=== PATIENT | female | born 1940 | race Caucasian/White ===

== ENCOUNTER 2020-02-19 12:52 | Inpatient (IN) | payer MEDICARE ==
[~2020-02-19] VITALS: Ht 167.6 cm; Wt 272.0 kg
[2020-02-19] VITALS (10 sets, daily range): BP systolic 118–147; BP diastolic 54–87
--- NOTE | 2020-02-19 13:29 | PHYS DOC ---
Past Medical History Past Medical History: A-Fib, Bronchitis, COPD, Other Additional Past Medical Histor: TESTED POSITIVE FOR COVID NOVEMBER 2019 JUST RELEASED FROM [facility]UG[facility] TO REHAB Past Surgical History: , Knee Replacement Additional Past Surgical Histo: RIGHT PARTIAL KNEE REPLACEMENT, GALL BLADDER Smoking Status: Former Smoker Alcohol Use: None General Adult EDM: Chief Complaint: SHORTNESS OF BREATH HPI: HPI: 79-year-old female past medical history significant for COPD on 2L NC, atrial fibrillation on Lovenox, and HTN presents to the ED brought in by EMS with concern for worsening shortness of breath that started last night, patient reports this does not feel like her typical COPD and is concerned she has pneumonia. Associated increased mucus production and left leg swelling, no h emoptysis, no fevers. Reports she was admitted to ICU in November for COVID, was confused and "doesn't remember much" and had multiple embolic strokes, residual left-sided weakness, eliquis was changed to lovennox. EMS reports patient was found 89% on 8 L nasal cannula. Patient reports she is no longer ambulatory- been giving her her Lovenox shots, denies any falls or trauma. Negative covid test 8 days ago while in rehab (was just dc'ed from rehab to home). Review of systems: Denies associated fever, chills, headache, neck stiffness, nausea, vomiting, diarrhea, rash, abdominal pain, back pain, sore throat, facial droop, speech changes, new focal neurologic deficits, dysuria, hematuria, flank pain, anuria or other concerning symptoms. Review of Systems: Review of Systems: Constitutional: Denies fever or chills. [] Eyes: Denies change in visual acuity. [] HENT: Denies nasal congestion or sore throat. [] Cardiovascular: Denies chest pain GI: Denies abdominal pain, nausea, vomiting, bloody stools or diarrhea. [] : Denies dysuria. [] Musculoskeletal: Denies back pain or joint pain. [] Integument: Denies rash. [] Neurologic: Denies headache, focal weakness or sensory changes. [] Endocrine: Denies polyuria or polydipsia. [] Lymphatic: Denies swollen glands. [] Psychiatric: Denies depression or anxiety. [] Heart Score: Risk Factors: Risk Factors: DM, Current or recent (<one month) smoker, HTN, HLP, family history of CAD, obesity. Risk Scores: Score 0 - 3: 2.5% MACE over next 6 weeks - Discharge Home Score 4 - 6: 20.3% MACE over next 6 weeks - Admit for Clinical Observation Score 7 - 10: 72.7% MACE over next 6 weeks - Early Invasive Strategies Allergies: Allergies: Allergies Coded Allergies Type Severity Reaction Last Updated Verified azithromycin Allergy Intermediate 02/19/20 Yes Physical Exam: PE: Constitutional: Pale appearing, in no acute distress, obese HENT: Normocephalic, atraumatic, bilateral external ears normal, oropharynx dry, Eyes: EOMI, conjunctiva normal, no discharge. [] Neck: Normal range of motion, no tenderness, supple, no stridor. [] Cardiovascular:Heart rate irregular rhythm, no murmur [] Lungs & Thorax: Crackles left upper and left lung base, scant expiratory wheezing, speaking in full sentences-no increased work of breathing, 5 L nasal cannula, 95% room air Abdomen: Bowel sounds normal, soft, no tenderness, no masses, no pulsatile masses, lower abdominal wall bruising (lovennox injections) Skin: Warm, dry, no erythema, no rash. [] Back: No tenderness, no CVA tenderness. [] Extremities: No tenderness, no cyanosis, no clubbing, ROM intact, +left leg edema. [] Neurologic: Alert and oriented X 3, normal motor function, normal sensory function, no focal deficits noted. [] Psychologic: Affect normal, judgement normal, mood normal. [] Current Patient Data: Vital Signs: Vital Signs Date Time Temp Pulse Resp B/P (MAP) Pulse Ox O2 Delivery O2 Flow Rate FiO2 02/19/20 13:05 98.8 123 22 138/73 (94) 93 Nasal Cannula 8.0 98.8 EKG: EKG: Atrial fibrillation at 135 bpm, no axis deviation, QTC 479, no obvious ST elevations or ST depressions, T wave inversions III Radiology/Procedures: Radiology/Procedures: IMAGING REPORT Signed PATIENT: PAMELA CARRION PACCOUNT: [id number] : 1940 LOCATION: ER AGE: 79 SEX: F EXAM STATUS: REG ER ORD. PHYSICIAN: FLORENTIN GOODE DO REASON: soa PROCEDURE: PORTABLE CHEST 1V Single AP view of the chest. Comparison: None. Indication: Shortness of air Findings: The heart is enlarged. There is no pneumothorax or effusion. Coarse bilateral interstitial infiltrates are seen. There is some component of airspace disease in the right lung base. Impression: 1. Coarse interstitial opacities are identified throughout the lungs with some airspace disease in right lung base. Findings suggest pulmonary edema or atypical infection. Electronically signed by: Geornimo Duckworth MD (02/19/2020 3:32 PM) [id number] DICTATED and SIGNED BY: GERONIMO DUCKWORTH MD DATE: 02/19/20 1532 IMAGING REPORT Signed PATIENT: PAMELA CARRION PACCOUNT: [id number] : 1940 LOCATION: ER AGE: 79 SEX: F EXAM STATUS: REG ER ORD. PHYSICIAN: FLORENTIN GOODE DO REASON: leg swelling PROCEDURE: VENOUS LOWER EXTREMITY LEFT Examination: Unilateral venous Doppler. Technique: Ultrasound evaluation of the left lower extremity was performed from the groin to the upper calf with abraham scale, spectral and color doppler evaluation. Indication: Leg swelling Findings: There is normal venous flow and compressibility of left common femoral vein, femoral vein, popliteal vein, and visualized proximal calf veins. Impression: No evidence for deep vein thrombosis of left lower extremity from the level of the calf veins to the groins. Electronically signed by: Popeye Snowden MD (02/19/2020 4:10 PM) [id number] DICTATED and SIGNED BY: POPEYE SNOWDEN MD DATE: 02/19/20 1610 Course & Med Decision Making: Course & Med Decision Making Pertinent Labs and Imaging studies reviewed. (See chart for details) Acute respiratory failure w/copd, requiring more NC oxygen, afib w/rvr on cardizem drip. Patient's daughter reported after patient was discharged from rehab she was supposed be on Cardizem 4 times a day, is only taking it once a day at home. Patient was requesting transfer to , not accepting pts (is on diversion). Left lower extremity ultrasound shows no DVT. Patient on 4 L nasal cannula. Chest x-ray concerning for atypical infectious process versus pulmonary edema (suspect chf given elevated bnp). COVID test pending. Will admit for further medical management. Dragon Disclaimer: Dragon Disclaimer: This electronic medical record was generated, in whole or in part, using a voice recognition dictation system. Departure Departure Impression: Primary Impression: Dyspnea Additional Impressions: Atrial fibrillation with rapid ventricular response Respiratory failure COPD exacerbation Disposition: ADMITTED INPATIENT Admitting Physician: SUMAN (Dr. Arciniega) Condition: GUARDED Referrals: YIFAN PRAJAPATI (PCP) Justicifation of Admission Dx: Justifications for Admission: Justification of Admission Dx: Yes CHF: Cardiac Arrhythmias FLORENTIN GOODE DO Feb 19, 2020 13:29
[2020-02-19] MEDS ORDERED: IV NORMAL SALINE 1000ML BAG 1,000 ML IV ONE (13:30)
[2020-02-19] MEDS ORDERED: IPRATRPIUM/ALBUTEROL 0.5/2.5MG 3 ML NEBU. NEB ONE (13:45)
[2020-02-19] MEDS ORDERED: methylPREDNISolone SOD SUCC PF 125 MG/2 ML VIAL. IV ONE (13:45)
--- NOTE | 2020-02-19 13:51 | EKG ---
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
[2020-02-19] MEDS ORDERED: dilTIAZem IV PUSH 25 MG/5 ML VIAL IVP ONE (14:00)
[2020-02-19 14:09] LABS: BASO # 0.2 x10^3/uL (0.0-0.2); BASO % 2 % (0-3); EOS # 0.3 x10^3/uL (0.0-0.7); EOS % 3 % (0-3); HEMATOCRIT 32.7 % (36.0-47.0); HEMOGLOBIN 10.8 g/dL (12.0-15.5); LYMPH # 2.9 x10^3/uL (1.0-4.8); LYMPH % 28 % (24-48); MEAN CORPUSCULAR HEMOGLOBIN 30 pg (25-35); MEAN CORPUSCULAR HGB CONC 33 g/dL (31-37); MEAN CORPUSCULAR VOLUME 92 fL (79-100); MONO # 0.9 x10^3/uL (0.0-1.1); MONO % 9 % (0-9); NEUT # 6.1 x10^3/uL (1.8-7.7); NEUT % 58 % (31-73); PLATELET COUNT 282 x10^3/uL (140-400); RED BLOOD COUNT 3.57 x10^6/uL (3.50-5.40); RED CELL DISTRIBUTION WIDTH 17.2 % (11.5-14.5); WHITE BLOOD COUNT 10.4 x10^3/uL (4.0-11.0)
[2020-02-19 14:19] LABS: PROTHROMBIN TIME PATIENT 14.4 SEC (11.7-14.0)
[2020-02-19 14:20] LABS: CALCIUM 7.8 mg/dL (8.5-10.1); CREATININE 0.9 mg/dL (0.6-1.0); GFR 60.2; POTASSIUM 3.4 mmol/L (3.5-5.1)
[2020-02-19 14:25] LABS: ALBUMIN 2.3 g/dL (3.4-5.0); ALBUMIN/GLOBULIN RATIO 0.6 (1.0-1.7); TOTAL BILIRUBIN 0.5 mg/dL (0.2-1.0); TOTAL PROTEIN 5.9 g/dL (6.4-8.2)
[2020-02-19] MEDS ORDERED: DILTIAZEM HCL 125 MG in IV NORMAL SALINE 100ML 100 ML IV ONE (15:15)
--- NOTE | 2020-02-19 15:35 | RAD ---
Single AP view of the chest. Comparison: None. Indication: Shortness of air Findings: The heart is enlarged. There is no pneumothorax or effusion. Coarse bilateral interstitial infiltrates are seen. There is some component of airspace disease in the right lung base. Impression: 1. Coarse interstitial opacities are identified throughout the lungs with some airspace disease in right lung base. Findings suggest pulmonary edema or atypical infection. Electronically signed by: Geronimo Duckworth MD (02/19/2020 3:32 PM) [id number]
--- NOTE | 2020-02-19 16:13 | RAD ---
Examination: Unilateral venous Doppler. Technique: Ultrasound evaluation of the left lower extremity was performed from the groin to the upper calf with abraham scale, spectral and color doppler evaluation. Indication: Leg swelling Findings: There is normal venous flow and compressibility of left common femoral vein, femoral vein, popliteal vein, and visualized proximal calf veins. Impression: No evidence for deep vein thrombosis of left lower extremity from the level of the calf veins to the groins. Electronically signed by: Popeye Sy MD (02/19/2020 4:10 PM) [id number]
[2020-02-19 17:02] LABS: BASE EXCESS ABG -3 mmol/L (-3-3); HCO3 ABG 21 mmol/L (21-28); PCO2 ABG 35 mmHg (35-46); PO2 ABG 80 mmHg (65-108); SAT O2 ABG 95 % (92-99)
[2020-02-19 17:04] LABS: FIO2 ABG 4L NC
--- NOTE | 2020-02-19 17:26 | PDOC1 ---
History and Physical Date of Service: DOS: DATE: 02/19/20 TIME: 17:23 Chief Complaint: Problems: (1) Respiratory failure (2) COPD exacerbation (3) Dyspnea (4) Atrial fibrillation with rapid ventricular response Chief Complain: Shortness of breath History of Present Illness: HPI: This is an elderly female who was at for COVID-19 within the past month She was just released in November I think she went to a rehab unit afterwards While being treated for her Covid-19 she apparently had a stroke as well She now developed severe shortness of breath The chest x-ray done here in the ER reviewed by myself and the ER physician is pretty impressive it shows vascular congestion and possible COVID-19? She apparently was retested for COVID recently and is negative but I am co ncerned she could have a recurrence She also has some left leg swelling I discussed the case with ER physician were going to meet the patient in consult pulmonary medicine infectious disease and cardiology Past Medical/Surgical History: PMH/PSH: Past Medical History: A-Fib, Bronchitis, COPD, Other Additional Past Medical Histor: TESTED POSITIVE FOR COVID NOVEMBER 2019 JUST RELEASED FROM [facility]ANU[facility] TO REHAB Past Surgical History: , Knee Replacement Additional Past Surgical Histo: RIGHT PARTIAL KNEE REPLACEMENT, GALL BLADDER Smoking Status: Former Smoker Alcohol Use: None General Adult Allergies: Allergies: Coded Allergies: azithromycin (Verified Allergy, Intermediate, 02/19/20) Family History: Family History: Hypertension Social History: Social History: She is not currently drink smoke or take drugs (I think she quit smoking) Current Medications: Current Medications Current Medications Sodium Chloride 1,000 ml @ 1,000 mls/hr 1X ONCE IV Last administered on 02/19/20at 14:05; Start 02/19/20 at 13:30; Stop 02/19/20 at 14:29; Status DC Diltiazem HCl (Cardizem Iv Push) 20 mg 1X ONCE IVP Last administered on 02/19/20at 14:04; Start 02/19/20 at 14:00; Stop 02/19/20 at 14:01; Status DC Methylprednisolone Sodium Succinate (SOLU-Medrol 125MG VIAL) 125 mg 1X ONCE IV Last administered on 02/19/20at 14:04; Start 02/19/20 at 13:45; Stop 02/19/20 at 13:46; Status DC Albuterol/ Ipratropium (Duoneb) 3 ml 1X ONCE NEB Last administered on 02/19/20at 14:05; Start 02/19/20 at 13:45; Stop 02/19/20 at 13:46; Status DC Diltiazem HCl 125 mg/Sodium Chloride 125 ml @ 5 mls/hr 1X ONCE IV Last administered on 02/19/20at 15:15; Start 02/19/20 at 15:15; Stop 02/20/20 at 16:14 Levofloxacin/ Dextrose 150 ml @ 100 mls/hr 1X ONCE IV Last administered on 02/19/20at 17:09; Start 02/19/20 at 16:45; Stop 02/19/20 at 18:14 ROS: Review of Systems Review of System REVIEW OF SYSTEMS: GENERAL: Denies weakness SKIN: No bruising, hair changes or rashes. EYES: No blurred, double or loss of vision. NOSE AND THROAT: No history of nosebleeds, hoarseness or sore throat. HEART: No history of palpitations, chest pain or shortness of breath on exertion. LUNGS: Complains of shortness of breath GASTROINTESTINAL: Denies changes in appetite, nausea, vomiting, diarrhea or constipation. GENITOURINARY: No history of frequency, urgency, hesitancy or nocturia. NEUROLOGIC: Denies history of numbness, tingling, or tremor. PSYCHIATRIC: No history of panic, anxiety or depression. ENDOCRINE: No history of heat or cold intolerance, polyuria or polydipsia. EXTREMITIES: Denies joint pain, pain on walking or stiffness. Physical Exam: Vital Signs: Vital Signs Date Time Temp Pulse Resp B/P (MAP) Pulse Ox O2 Delivery O2 Flow Rate FiO2 02/19/20 15:30 122 20 142/90 (107) 97 Nasal Cannula 4.0 02/19/20 13:05 98.8 98.8 Physcial Exam: GEN: No apparent distress. Alert and oriented HEENT: Normal cephalic, atraumatic, external auditory canals are patent EYES: Extraocular muscles are intact, pupil are equally round and reactive to light and accommodation MUSCULOSKELETAL: Well developed , well nourished, good range of motion ENDOCRINE: No thyromegaly was palpated LYMPHATICS: No cervical chain or axillary nodes were noted HEMATOPOIETIC: No bruising NECK: Supple, no JVD, no thyromegaly was noted LUNGS: Bibasilar crackles HEART: RRR, S!, S2 present. Peripheral pulses intact, no obvious murmurs noted ABDOMEN: Soft, nontender. Positive bowel sounds, no organomegaly, normal bowel sounds EXTREMITIES: Left leg swollen NEUROLOGIC: Normal speech and tone. A&O x 3, moves all extremities, no obvious focal deficits PSYCHIATRIC: Normal affect, normal mood. Stable SKIN: No ulcerations or rashes, good skin turgor, no jaundice VASCULAR: Good capillary refill, neurovascular bundle appears to be intact Labs: Labs: Laboratory Tests Test 02/19/20 13:56 02/19/20 16:10 White Blood Count 10.4 x10^3/uL (4.0-11.0) Red Blood Count 3.57 x10^6/uL (3.50-5.40) Hemoglobin 10.8 g/dL (12.0-15.5) Hematocrit 32.7 % (36.0-47.0) Mean Corpuscular Volume 92 fL (79-100) Mean Corpuscular Hemoglobin 30 pg (25-35) Mean Corpuscular Hemoglobin Concent 33 g/dL (31-37) Red Cell Distribution Width 17.2 % (11.5-14.5) Platelet Count 282 x10^3/uL (140-400) Neutrophils (%) (Auto) 58 % (31-73) Lymphocytes (%) (Auto) 28 % (24-48) Monocytes (%) (Auto) 9 % (0-9) Eosinophils (%) (Auto) 3 % (0-3) Basophils (%) (Auto) 2 % (0-3) Neutrophils # (Auto) 6.1 x10^3/uL (1.8-7.7) Lymphocytes # (Auto) 2.9 x10^3/uL (1.0-4.8) Monocytes # (Auto) 0.9 x10^3/uL (0.0-1.1) Eosinophils # (Auto) 0.3 x10^3/uL (0.0-0.7) Basophils # (Auto) 0.2 x10^3/uL (0.0-0.2) Prothrombin Time 14.4 SEC (11.7-14.0) Prothromb Time International Ratio 1.2 (0.8-1.1) Activated Partial Thromboplast Time 41 SEC (24-38) Sodium Level 143 mmol/L (136-145) Potassium Level 3.4 mmol/L (3.5-5.1) Chloride Level 108 mmol/L (98-107) Carbon Dioxide Level 27 mmol/L (21-32) Anion Gap 8 (6-14) Blood Urea Nitrogen 14 mg/dL (7-20) Creatinine 0.9 mg/dL (0.6-1.0) Estimated GFR (Cockcroft-Gault) 60.2 BUN/Creatinine Ratio 16 (6-20) Glucose Level 120 mg/dL (70-99) Calcium Level 7.8 mg/dL (8.5-10.1) Total Bilirubin 0.5 mg/dL (0.2-1.0) Aspartate Amino Transf (AST/SGOT) 14 U/L (15-37) Alanine Aminotransferase (ALT/SGPT) 10 U/L (14-59) Alkaline Phosphatase 54 U/L (46-116) Troponin I Quantitative < 0.017 ng/mL (0.000-0.055) RB-Plo-N-Type Natriuretic Peptide 86694 pg/mL (0-449) Total Protein 5.9 g/dL (6.4-8.2) Albumin 2.3 g/dL (3.4-5.0) Albumin/Globulin Ratio 0.6 (1.0-1.7) O2 Saturation 95 % (92-99) Arterial Blood pH 7.40 (7.35-7.45) Arterial Blood pCO2 at Patient Temp 35 mmHg (35-46) Arterial Blood pO2 at Patient Temp 80 mmHg (65-108) Arterial Blood HCO3 21 mmol/L (21-28) Arterial Blood Base Excess -3 mmol/L (-3-3) FiO2 4l nc Laboratory Tests Test 02/19/20 13:56 02/19/20 16:10 White Blood Count 10.4 x10^3/uL (4.0-11.0) Red Blood Count 3.57 x10^6/uL (3.50-5.40) Hemoglobin 10.8 g/dL (12.0-15.5) Hematocrit 32.7 % (36.0-47.0) Mean Corpuscular Volume 92 fL (79-100) Mean Corpuscular Hemoglobin 30 pg (25-35) Mean Corpuscular Hemoglobin Concent 33 g/dL (31-37) Red Cell Distribution Width 17.2 % (11.5-14.5) Platelet Count 282 x10^3/uL (140-400) Neutrophils (%) (Auto) 58 % (31-73) Lymphocytes (%) (Auto) 28 % (24-48) Monocytes (%) (Auto) 9 % (0-9) Eosinophils (%) (Auto) 3 % (0-3) Basophils (%) (Auto) 2 % (0-3) Neutrophils # (Auto) 6.1 x10^3/uL (1.8-7.7) Lymphocytes # (Auto) 2.9 x10^3/uL (1.0-4.8) Monocytes # (Auto) 0.9 x10^3/uL (0.0-1.1) Eosinophils # (Auto) 0.3 x10^3/uL (0.0-0.7) Basophils # (Auto) 0.2 x10^3/uL (0.0-0.2) Prothrombin Time 14.4 SEC (11.7-14.0) Prothromb Time International Ratio 1.2 (0.8-1.1) Activated Partial Thromboplast Time 41 SEC (24-38) Sodium Level 143 mmol/L (136-145) Potassium Level 3.4 mmol/L (3.5-5.1) Chloride Level 108 mmol/L (98-107) Carbon Dioxide Level 27 mmol/L (21-32) Anion Gap 8 (6-14) Blood Urea Nitrogen 14 mg/dL (7-20) Creatinine 0.9 mg/dL (0.6-1.0) Estimated GFR (Cockcroft-Gault) 60.2 BUN/Creatinine Ratio 16 (6-20) Glucose Level 120 mg/dL (70-99) Calcium Level 7.8 mg/dL (8.5-10.1) Total Bilirubin 0.5 mg/dL (0.2-1.0) Aspartate Amino Transf (AST/SGOT) 14 U/L (15-37) Alanine Aminotransferase (ALT/SGPT) 10 U/L (14-59) Alkaline Phosphatase 54 U/L (46-116) Troponin I Quantitative < 0.017 ng/mL (0.000-0.055) YB-Cpv-W-Type Natriuretic Peptide 06967 pg/mL (0-449) Total Protein 5.9 g/dL (6.4-8.2) Albumin 2.3 g/dL (3.4-5.0) Albumin/Globulin Ratio 0.6 (1.0-1.7) O2 Saturation 95 % (92-99) Arterial Blood pH 7.40 (7.35-7.45) Arterial Blood pCO2 at Patient Temp 35 mmHg (35-46) Arterial Blood pO2 at Patient Temp 80 mmHg (65-108) Arterial Blood HCO3 21 mmol/L (21-28) Arterial Blood Base Excess -3 mmol/L (-3-3) FiO2 4l nc Assessment/Plan Assessment/Plan Severe respiratory failure CHF acute on chronic systolic and diastolic Recent COVID-19 suspect possible recurrence? Plan Consult infectious disease Consult pulmonary Consult cardiology Respiratory isolation Consider IV antibiotics Consider IV Lasix Home meds DVT prophylaxis Full code Long-term prognosis guarded JIM LUGO III DO Feb 19, 2020 17:26
[2020-02-19] MEDS ORDERED: METOPROLOL TARTRATE 5 MG/5 ML VIAL. IVP ONE (18:15)
--- NOTE | 2020-02-19 19:30 | NUR ---
A 79YO FEMALE ADMITTED FOR AFIB RVR , RESP FAILURE AND ACUTE HYPOXIA. PT WITH 3-4 PERSON TRANSFER TO BED. 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 ASSESSMENT AND HISTORY COMPLETE SEE CHART. PT ON CARDIZEM GTT PER ORDER. PT ON 4L NC WITH O2SATS WNL. WILL REPOSITION PT Q2HRS AND PRN NEEDED. CALL LIGHT IN REACH, WILL CONT TO MONITOR PT STATUS AND SAFETY. PMRN
[2020-02-19] MEDS ORDERED: CELE200C PO (21:25)
[2020-02-19] MEDS ORDERED: PANT20TA2 PO (21:25)
[2020-02-19] MEDS ORDERED: METO25TA4 PO (21:51)
[2020-02-19] MEDS ORDERED: DRON400T PO (21:51)
[2020-02-19] MEDS ORDERED: METOPROLOL TART IMMED RELEASE 25 MG TABLET. PO ONE (22:45)
[2020-02-19] MEDS ORDERED: PANTOPRAZOLE 40 MG TABLET.DR. PO ONE (22:45)
[2020-02-19] MEDS ORDERED: DRONEDARONE HCL 400 MG TABLET PO ONE (22:45)
[2020-02-20] VITALS (13 sets, daily range): BP systolic 102–142; BP diastolic 54–85
[2020-02-20] MEDS ORDERED: DILTIAZEM HCL 125 MG in IV NORMAL SALINE 100ML 100 ML IV PRN (00:30)
[2020-02-20] MEDS ORDERED: DULO60CA6 PO (04:36)
[2020-02-20] MEDS ORDERED: LORA-434 PO (04:36)
[2020-02-20] MEDS ORDERED: APIX5TAB PO (04:36)
[2020-02-20] MEDS ORDERED: LOSA1TAB25 PO (04:36)
[2020-02-20] MEDS ORDERED: MULT-245 PO (04:36)
[2020-02-20] MEDS ORDERED: OXYB5TAB10 PO (04:36)
[2020-02-20] MEDS: PANTOPRAZOLE 40 MG TABLET.DR. PO SCH ×2 (08:00→16:20)
[2020-02-20] MEDS: CELECOXIB 100 MG CAPSULE. PO SCH (08:01)
[2020-02-20] MEDS: METOPROLOL TART IMMED RELEASE 25 MG TABLET. PO SCH ×4 (08:02→21:00)
[2020-02-20] MEDS: MULTIVITAMIN with MINERAL TABLET. PO SCH (08:02)
[2020-02-20] MEDS: OXYBUTYNIN CHLORIDE 5 MG TABLET PO SCH (08:02)
[2020-02-20] MEDS ORDERED: MAGNESIUM SULFATE 2GM 50 ML IV PRN (08:30)
[2020-02-20] MEDS ORDERED: POTASSIUM CHLORIDE 20 MEQ TABLET.ER. PO PRN (08:30)
[2020-02-20] MEDS ORDERED: POTASSIUM CHLORIDE 10MEQ 100 ML IV PRN ×2 (08:30)
[2020-02-20] MEDS ORDERED: POTASSIUM BICARB 20 MEQ EFFERVESCENT TABLET. PO PRN (08:30)
[2020-02-20] MEDS ORDERED: POTASSIUM & SODIUM PHOSPHATES PACKET. PO PRN (09:00)
[2020-02-20] MEDS ORDERED: NON FORMULARY ITEM (Losartan/Hydrochlorothiazide (Losartan-Hctz 100-12.5 Mg Tab) 1 EACH) PO SCH (09:00)
[2020-02-20] MEDS ORDERED: LOSARTAN POTASSIUM 50 MG TABLET. PO SCH (09:00)
[2020-02-20] MEDS ORDERED: DRONEDARONE HCL 400 MG TABLET PO SCH (09:00)
[2020-02-20] MEDS ORDERED: hydroCHLOROthiazide 12.5 MG CAPSULE PO SCH (09:00)
[2020-02-20] MEDS ORDERED: FUROSEMIDE 40 MG/4 ML VIAL. IVP ONE (10:00)
--- NOTE | 2020-02-20 11:10 | CONS ---
DATE OF CONSULTATION: PULMONARY CONSULTATION ATTENDING PHYSICIAN: Dr. Arciniega. REASON FOR CONSULTATION: Hypoxia, respiratory failure. HISTORY OF PRESENT ILLNESS: The patient is an 79-year-old female who has probably 15-20 years of tobacco use, quit 40 years ago. She was treated for COVID pneumonia, hypoxic respiratory failure in the month of November and stayed at for about 5 weeks. The patient states that she also had a stroke at that time. She then went to rehab facility. From rehab facility, she went home. She was brought into the hospital with increasing shortness of breath. She has mild cough. No fever, no chills. She had lower extremity edema. She was noted to be in atrial fibrillation with RVR. The patient's chest x-ray showed diffuse bilateral interstitial infiltrates. She does not have any fever. The patient was treated with Cardizem. She has not received Lasix yet. Her proBNP was markedly elevated at 10,000. No deep vein thrombosis or pulmonary embolism. She is normally not on oxygen. PAST MEDICAL HISTORY: History of COVID pneumonia, acute lung injury in the month of November. She has recovered from it. She did have a stroke during that time as well. She was tested 5 times negative after that. Possible mild COPD. History of atrial fibrillation. PAST SURGICAL HISTORY: , knee replacement and cholecystectomy. SOCIAL HISTORY: Quit tobacco 40 years ago, before that smoked for 15-20 years. MEDICATIONS: Reviewed as listed in the MRAD. REVIEW OF SYSTEMS: Twelve-point system obtained. Pertinent positives discussed in my history of present illness, otherwise noncontributory. All systems that were negative were reviewed as well. PHYSICAL EXAMINATION: VITAL SIGNS: Reviewed. Pulse ox 94% on 4 liters. She is afebrile. Visual exam done due to COVID-19 suspicion. She does not appear to be in any obvious respiratory distress. She does have 1+ pitting edema bilaterally. No skin rash. LABORATORY AND DIAGNOSTIC DATA: Labs are reviewed. BUN 14, creatinine 0.9. ProBNP is 10,000. INR 1.2. White cell count 10.4. IMPRESSION: 1. Acute hypoxic respiratory failure, likely secondary to acute congestive heart failure. Triggered by atrial fibrillation with rapid ventricular response. 2. The patient with COVID pneumonia and acute lung injury treated for about 5-6 weeks in the month of November at and then developed stroke while at the rehab facility and has been tested negative 5 times since then. Now comes in with acute hypoxic respiratory failure, which is likely caused by congestive heart failure. Low clinical suspicion for recurrent COVID infection. 3. Minimal tobacco history. 4. History of atrial fibrillation. 5. Abnormal chest x-ray with diffuse bilateral interstitial infiltrates consistent with congestive heart failure. 6. No evidence of deep venous thrombosis in the lower extremity. RECOMMENDATIONS: 1. Continue present oxygen. 2. Start diuresis, she has not received Lasix yet. 3. Follow chest x-ray after adequate diuresis. 4. Follow Cardiology recommendations regarding atrial fibrillation. 5. Anticoagulation per Cardiology for AFib. 6. Cardizem for AFib. 7. Discussed with RN and we will follow along with you. BRITNI GARCIA MD DR: JANAY/angel JOB#: [id number] / [id number]
[2020-02-20] MEDS ORDERED: ANTI-COAG MONITOR BY PHARMACY. MC PRN (11:30)
--- NOTE | 2020-02-20 12:55 | PDOC2 ---
NBA OLSEN REFORESTATION WORKER 02/20/20 1255: CARDIAC CONSULT DATE OF CONSULT Date of Consult DATE: 02/20/20 TIME: 12:04 REASON FOR CONSULT Reason for Consult: CHF REFERRING PHYSICIAN Referring Physician: [facility] SOURCE Source: Chart review, Patient HISTORY OF PRESENT ILLNESS HISTORY OF PRESENT ILLNESS This is a pleasant 79 yo female admitted for complains of shortness of breath. Reports that she has been having some SOA in the last week and yesterday it became significantly pronounced. No chest pain. She is debilitated due to weakness and past CVA. She is WC bound. She has been to [facility] few months ago and actually had an embolic stroke. She was on eliquis before and was placed on routine home lovenox per neurology and was told that she has to be on this for the rest of her life. She has been paying about $400 a month for it. She came in with AFIB RVR and currently on cardizem drip. It is unclear what cardizem PO dosing she has been taking but has been off some of her usual meds especially multaq unclear when her last dose was but clearly unable to afford it as well with $400 a month cost. She lives with her and has been helping her with transfers. She has been urinating less and has been noticing her legs become more edematous lately. Denies any nausea vomiting or diarrhea. She has been hav ing nonproductive cough and orthopnea. She has AFIB RVR but does not feel her heart racing. Unclear when was the last time she had an ischemic workup. 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) GI: Diverticulosis, Peptic Ulcer disease, Other (dysphagia; rectocele) Heme/Onc: Cancer (breast), Other (LUE superficial rhombus r/t to PIV in 12/18) Hepatobiliary: Cholelithiasis Psych: Anxiety, Depression Musculoskeletal: Osteoarthritis Rheumatologic: No pertinent hx Infectious disease: Herpes simplex1 ENT: Other (glaucoma) Renal/: UTI, Urinary Incontinence, Other (prior SEKOU) Endocrine: Diabetes (2) Dermatology: Other (prior genital herpes) PAST SURGICAL HISTORY Past Surgical History: Appendectomy, Cholecystectomy, Hysterectomy FAMILY HISTORY Family History: Hypertension SOCIAL HISTORY Smoke: Quit ALCOHOL: none Drugs: None Lives: with Family CURRENT MEDICATIONS CURRENT MEDICATIONS Current Medications Medications (Trade) Dose Ordered Sig/Geronimo Route PRN Reason Start Time Stop Time Status Last Admin Dose Admin Sodium Chloride 1,000 ml @ 1,000 mls/hr 1X ONCE IV 02/19/20 13:30 02/19/20 14:29 DC 02/19/20 14:05 Diltiazem HCl (Cardizem Iv Push) 20 mg 1X ONCE IVP 02/19/20 14:00 02/19/20 14:01 DC 02/19/20 14:04 Methylprednisolone Sodium Succinate (SOLU-Medrol 125MG VIAL) 125 mg 1X ONCE IV 02/19/20 13:45 02/19/20 13:46 DC 02/19/20 14:04 Albuterol/ Ipratropium (Duoneb) 3 ml 1X ONCE NEB 02/19/20 13:45 02/19/20 13:46 DC 02/19/20 14:05 Diltiazem HCl 125 mg/Sodium Chloride 125 ml @ 5 mls/hr 1X ONCE IV 02/19/20 15:15 02/20/20 16:14 02/19/20 15:15 Levofloxacin/ Dextrose 150 ml @ 100 mls/hr 1X ONCE IV 02/19/20 16:45 02/19/20 18:14 DC 02/19/20 17:09 Metoprolol Tartrate (Lopressor Vial) 5 mg 1X ONCE IVP 02/19/20 18:15 02/19/20 18:16 DC 02/19/20 18:30 Dronedarone (Multaq) 400 mg 1X ONCE PO 02/19/20 22:45 02/19/20 22:46 DC 02/19/20 23:18 Pantoprazole Sodium (Protonix) 40 mg 1X ONCE PO 02/19/20 22:45 02/19/20 22:46 DC 02/19/20 23:17 Metoprolol Tartrate (Lopressor) 25 mg 1X ONCE PO 02/19/20 22:45 02/19/20 22:46 DC 02/19/20 23:17 Enoxaparin Sodium (Lovenox 100mg Syringe) 90 mg Q12HR SQ 02/19/20 22:45 02/20/20 08:00 Diltiazem HCl 125 mg/Sodium Chloride 125 ml @ 10 mls/hr CONT PRN IV SEE I/O RECORD 02/20/20 00:30 02/20/20 01:05 Dronedarone (Multaq) 400 mg BID PO 02/20/20 09:00 02/20/20 08:02 Lorazepam (Ativan) 1 mg DAILY PO 02/20/20 09:00 02/20/20 08:01 Metoprolol Tartrate (Lopressor) 25 mg BID PO 02/20/20 09:00 02/20/20 08:02 Oxybutynin Chloride (Ditropan) 15 mg DAILY PO 02/20/20 09:00 02/20/20 08:02 Celecoxib (CeleBREX) 200 mg DAILY PO 02/20/20 09:00 02/20/20 08:01 Multivitamins (Thera M Plus) 1 tab DAILY PO 02/20/20 09:00 02/20/20 08:02 Pantoprazole Sodium (Protonix) 40 mg BIDAC PO 02/20/20 07:30 02/20/20 08:00 Losartan Potassium (Cozaar) 100 mg DAILY PO 02/20/20 09:00 02/20/20 08:01 Hydrochlorothiazide (Microzide) 12.5 mg DAILY PO 02/20/20 09:00 02/20/20 08:01 Furosemide (Lasix) 40 mg 1X ONCE IVP 02/20/20 10:00 02/20/20 10:01 DC 02/20/20 10:30 ALLERGIES ALLERGIES: Coded Allergies: azithromycin (Verified Allergy, Intermediate, 02/19/20) ROS Review of System 14 point ROS evaluated with pertinent positives noted per HPI PHYSICAL EXAM General: Alert, Oriented X3, Cooperative, No acute distress HEENT: Atraumatic, Mucous membr. moist/pink Lungs: Other (diminished) Heart: Other (AFIB; distant heart sounds) Abdomen: Soft, No tenderness, Other (obese) Extremities: No cyanosis, Other (2+ bilateral LE pitting edema) Skin: No breakdown Neuro: Normal speech, Sensation intact Psych/Mental Status: Mental status NL, Mood NL MUSCULOSKELETAL: Osteoarthritic changes both hands VITALS/I&O VITALS/I&O: Vital Signs Date Time Temp Pulse Resp B/P (MAP) Pulse Ox O2 Delivery O2 Flow Rate FiO2 02/20/20 08:02 83 118/83 02/20/20 08:00 Nasal Cannula 4.0 02/20/20 07:00 96.9 22 94 96.9 I & O 02/19/20 02/19/20 02/20/20 15:00 23:00 07:00 Intake Total 700 ml 725 ml Balance 700 ml 725 ml LABS Lab: Laboratory Tests Test 02/19/20 13:56 02/19/20 16:10 02/19/20 22:31 02/20/20 08:07 White Blood Count 10.4 x10^3/uL (4.0-11.0) Red Blood Count 3.57 x10^6/uL (3.50-5.40) Hemoglobin 10.8 g/dL (12.0-15.5) L Hematocrit 32.7 % (36.0-47.0) L Mean Corpuscular Volume 92 fL (79-100) Mean Corpuscular Hemoglobin 30 pg (25-35) Mean Corpuscular Hemoglobin Concent 33 g/dL (31-37) Red Cell Distribution Width 17.2 % (11.5-14.5) H Platelet Count 282 x10^3/uL (140-400) Neutrophils (%) (Auto) 58 % (31-73) Lymphocytes (%) (Auto) 28 % (24-48) Monocytes (%) (Auto) 9 % (0-9) Eosinophils (%) (Auto) 3 % (0-3) Basophils (%) (Auto) 2 % (0-3) Neutrophils # (Auto) 6.1 x10^3/uL (1.8-7.7) Lymphocytes # (Auto) 2.9 x10^3/uL (1.0-4.8) Monocytes # (Auto) 0.9 x10^3/uL (0.0-1.1) Eosinophils # (Auto) 0.3 x10^3/uL (0.0-0.7) Basophils # (Auto) 0.2 x10^3/uL (0.0-0.2) Prothrombin Time 14.4 SEC (11.7-14.0) H Prothrombin Time INR 1.2 (0.8-1.1) H Activated Partial Thromboplast Time 41 SEC (24-38) H Sodium Level 143 mmol/L (136-145) Potassium Level 3.4 mmol/L (3.5-5.1) L Chloride Level 108 mmol/L (98-107) H Carbon Dioxide Level 27 mmol/L (21-32) Anion Gap 8 (6-14) Blood Urea Nitrogen 14 mg/dL (7-20) Creatinine 0.9 mg/dL (0.6-1.0) Estimated GFR (Cockcroft-Gault) 60.2 BUN/Creatinine Ratio 16 (6-20) Glucose Level 120 mg/dL (70-99) H Calcium Level 7.8 mg/dL (8.5-10.1) L Total Bilirubin 0.5 mg/dL (0.2-1.0) Aspartate Amino Transferase (AST) 14 U/L (15-37) L Alanine Aminotransferase (ALT) 10 U/L (14-59) L Alkaline Phosphatase 54 U/L (46-116) Troponin I Quantitative < 0.017 ng/mL (0.000-0.055) IQ-Wbf-Q-Type Natriuretic Peptide 19506 pg/mL (0-449) H Total Protein 5.9 g/dL (6.4-8.2) L Albumin 2.3 g/dL (3.4-5.0) L Albumin/Globulin Ratio 0.6 (1.0-1.7) L O2 Saturation 95 % (92-99) Arterial Blood pH 7.40 (7.35-7.45) Arterial Blood pCO2 at Patient Temp 35 mmHg (35-46) Arterial Blood pO2 at Patient Temp 80 mmHg (65-108) Arterial Blood HCO3 21 mmol/L (21-28) Arterial Blood Base Excess -3 mmol/L (-3-3) FiO2 4l nc Glucose (Fingerstick) 171 mg/dL (70-99) H 159 mg/dL (70-99) H Laboratory Tests 02/19/20 13:56 Laboratory Tests 02/19/20 13:56 IMAGES IMAGES CTA chest 12/15/2019 1. No pulmonary embolism. 2. Confluent bilateral COVID-19 pneumonia. 3. Mediastinal and hilar adenopathy, likely reactive. 4. 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 A small amount of intermediate density left perinephric fluid may represent small amount of blood products. Of note, visualized portion of the AML is not significantly changed appearance. ECHOCARDIOGRAM ECHOCARDIOGRAM 12/17/2019 [facility] Technically difficult study due to atrial fibrillation with rapid ventricular response during image acquisition. LVEF=55-60%. Global left ventricular systolic function is normal. No definite regional wall abnormalities identified on the echo contrast images. Mildly dilated right ventricle with normal function. Normal LA volume index. The aortic and pulmonic valves were not well visualized on this study. Mild tricuspid valve regurgitation. No valvular stenosis. No pericardial effusion. Estimated pulmonary artery systolic pressure is 32 mmHg. STRESS TEST STRESS TEST FINDINGS: 06/09/2018 [facility] Pharmacological Stress Electrocardiogram: The patient's resting heart rate was 78 bpm and the resting blood pressure was 122/70. The patients peak stress heart rate was 95 bpm and the peak stress blood pressure was 112/58. The patient experienced flushing. The resting ECG shows Normal sinus rhythm with frequent APCs. Following Regadenoson infusion there are no new diagnostic ECG changes. Conclusion: Pharmacologic stress ECG is negative for ischemia. Atwzskztf-oc-Evqbsdciwb Count Ratio: 0.28 (normal = or < 0.52). Scintigraphic Findings: Raw images reveal the left ventricular cavity is normal in size. There is normal pulmonary tracer uptake. There is breast attenuation present. No transient ischemic dilation is present. Tomographic images were reconstructed in three orthogonal views. There is a very subtle degree of decreased radiotracer uptake in the LV apex in a fixed pattern. There is normal homogenous uptake of thallium in all other myocardial segments. There are no perfusion defects. All myocardial segments appear viable. Polar coordinate map identifies more significant LV apical perfusion abnormalities than what is evident by qualitative review of the tomographic reconstructions. TID Ratio: 1.12 (normal <1.36). Summed Stress Score: 4 , Summed Rest Score: 1 Regional Wall Thickening and Motion Post Stress: There is normal left ventricular wall motion and thickening of all myocardial segments. Left Ventricular Ejection Fraction = 57 %. Left Ventricular End Diastolic Volume: 59 mL SUMMARY/OPINION: This study is probably normal with no evidence of significant myocardial ischemia. There is a small sized, mild intensity, predominantly fixed apical inferior perfusion defect. The defect is less prominent in the post- stress supine images. This suggests the reduced tracer uptake is due to soft tissue attenuation, which correlates with raw image breast artifact.There is no corresponding regional wall motion abnormality. Left ventricular systolic function is normal. There are no high risk prognostic indicators present. The ECG portion of the study is negative for ischemia. This study is compared to prior thallium myocardial perfusion study performed 08/09/2014 with D-SPECT camera. No significant changes have occurred. Apical inferior perfusion defect was seen on prior study and was also less prominent on post-stress supine imaging. ASSESSMENT/PLAN ASSESSMENT/PLAN 1. Acute on chronic diastolic CHF: likely precipitated by RVR 2. AFIB RVR: paroxysmal by hx 3. GLADIS: CPAP intolerant; uses O2 at home. may need to get retested for consideration of other type of CPAP delivery 4. HTN: controlled 5. HLP: past statin intolerance 6. DM2: per pcp 7. Obesity with debility r/t CVA 8. Recently recovered from COVID-19 PNA: noted in 11/2019 with 2 negatives known early December 9. Hx of recent embolic stroke with left side hemiparesis: was placed on lovenox 10. Chronic LE lymphedema Recommendations 1. Await covid PCR. If negative then will obtain limited TTE and will note LV function 2. DC cardizem drip. Stop HCTZ and decrease losartan to make room for metoprolol. Lasix therapy 3. Start coumadin will bridge with lovenox and amiodarone for stroke prophylaxis and rhythm maintenance 4. Consider for outpt ischemic workup. She follow with Dr. Pa at [facility] cardiology 5. She has been given multaq in the past and unclear when she actually stopped it but it has been a while due to $400 a month payment. Also she was recently started on lovenox for stroke prophylaxis and unclear why she was not transitioned to coumadin as this cost her another $400 a month. She has been taking this but not the multaqdue to cost. It is unclear as well if she has been taking IR cardizem at home. There was no documented hemorrhagic transformation in her prior stroke but rather notable for embolic finding. Hence she will start on amiodarone and coumadin 6. BMP and Mg, TSH FINA CHAPIN MD 02/20/20 2444: CARDIAC CONSULT ASSESSMENT/PLAN ASSESSMENT/PLAN Patient seen and examined. Agree with RAMP FLIGHT ATTENDANT's assessment and plan. Continue diuretics for ac on chr diast HF Recent 2D echo showed nornal LVF Atrial fib rate better controlled Agree with amiodarone for anti arrhythmic therapy, coumadin for stroke prophylaxis. If she remains in AF, consider outpatient cardioversion with primary emission technician. Agree with 2D echo if Covid test negative/ Consider outpatient ischemic workup. Thank you for your consultation NBA OLSEN APRN Feb 20, 2020 12:55 FINA CHAPIN MD Feb 20, 2020 19:04
[2020-02-20] MEDS: AMIODARONE HCL 200 MG TABLET. PO SCH ×2 (14:01→21:28)
--- NOTE | 2020-02-20 14:18 | NUR ---
CAROL following. Spoke with RN and reviewed chart. Pt was at home with spouse and [facility] ([phone]) prior to this admission. Pt on 4l 02. Pt is 224 lbs. Pt COVID negative. CAROL spoke with Carito from [facility] and pt was at [facility] and then [facility] ([phone]) prior to discharging home. Carito stated that pt had no DME on discharge from [facility] and that was working to get a gamaliel lift and low-loss air-mattress in the home. CAROL attempted to call into pt's room and also LVM for spouse. PT/OT has been ordered. CAROL LVM for [facility] to see if pt has exhausted skilled days. CAROL following. Addendum: 02/20/20 at 1723 by GLADIS MEDINA Spoke with spouse and he would like pt home with [facility] at discharge. Pt's spouse working to get a hospital bed and gamaliel lift in the home. [employer] Choice of Vendor form completed. Pt transferred to .
[2020-02-20 14:30] LABS: BILIRUBIN,URINE NEGATIVE (NEG); CLARITY,URINE CLEAR; COLOR,URINE YELLOW; NITRITE,URINE NEGATIVE (NEG); PH,URINE 5.5 (<5.0-8.0); PROTEIN,URINE NEGATIVE (NEG-TRACE); UROBILINOGEN,URINE 0.2 mg/dL (0.2 mg/dL)
[2020-02-20 14:39] LABS: BACTERIA,URINE FEW /HPF (0-FEW); RBC,URINE RARE /HPF (0-2); SQUAMOUS EPITHELIAL CELL,UR MOD /LPF
--- NOTE | 2020-02-20 14:47 | PDOC ---
[employer] PROGRESS NOTE Date of Service DOS: DATE: 02/20/20 TIME: 14:37 Chief Complaint Chief Complaint Acute respiratory failure due to likely acute CHF acute on chronic diastolic CHF AFIB RVR GLADIS HTN Dyslipidemia Diabetes Obesity class II Recent COVID infection pneumonia in November Recent embolic stroke with residual left-sided hemiparesis Chronic LE lymphedema Appreciate cardiology and pulmonology recommendations Will obtain TTE when COVID is negative Continue losartan at a low dose. Continue metoprolol. DC Cardizem and HCTZ. Continue with IV Lasix diuresis Continue IV antibiotics appreciate ID recommendations Follow-up blood cultures Lovenox and warfarin for DVT prophylaxis Protonix GI prophylaxis ADA diet Full code Discussed with RN and SW Disposition inpatient Surrogate decision maker is self History of Present Illness History of Present Illness 79-year-old female with past medical history of CHF, GLADIS, CVA, COVID pneumonia who presents to the ED with complaints of shortness of breath. She was recently treated for COVID and she developed a stroke during her treatment at . She eventually went to rehab afterwards. 02/20/2020 No acute events overnight. Patient is currently being evaluated by pulmonology and cardiology. She will receive IV diuresis today. Patient's chart, labs, images were reviewed and discussed with RN Vitals/I&O Vitals/I&O: Vital Signs Date Time Temp Pulse Resp B/P (MAP) Pulse Ox O2 Delivery O2 Flow Rate FiO2 02/20/20 14:01 95 117/62 02/20/20 11:00 97.3 22 Nasal Cannula 4.0 97.3 02/20/20 07:00 94 I & O 02/19/20 02/19/20 02/20/20 15:00 23:00 07:00 Intake Total 700 ml 725 ml Balance 700 ml 725 ml Physical Exam General: Alert, Oriented X3, Cooperative, No acute distress Heart: Other (AFIB; distant heart sounds) Abdomen: Soft, No tenderness, Other (obese) Extremities: No cyanosis, Other (2+ bilateral LE pitting edema) Skin: No breakdown Labs Labs: Laboratory Tests Test 02/19/20 16:10 02/19/20 17:05 02/19/20 22:31 02/20/20 08:07 O2 Saturation 95 % (92-99) Arterial Blood pH 7.40 (7.35-7.45) Arterial Blood pCO2 at Patient Temp 35 mmHg (35-46) Arterial Blood pO2 at Patient Temp 80 mmHg (65-108) Arterial Blood HCO3 21 mmol/L (21-28) Arterial Blood Base Excess -3 mmol/L (-3-3) FiO2 4l nc Coronavirus (PCR) Not detected (Not Detected) Glucose (Fingerstick) 171 mg/dL (70-99) 159 mg/dL (70-99) Test 02/20/20 13:55 Prothrombin Time 15.0 SEC (11.7-14.0) Prothromb Time International Ratio 1.2 (0.8-1.1) Assessment and Plan Assessmemt and Plan Problems Medical Problems: (1) Atrial fibrillation with rapid ventricular response Status: Acute (2) COPD exacerbation Status: Acute (3) Dyspnea Status: Acute (4) Respiratory failure Status: Acute Comment Review of Relevant I have reviewed the following items grace (where applicable) has been applied. Medications: Current Medications Medications (Trade) Dose Ordered Sig/Geronimo Route PRN Reason Start Time Stop Time Status Last Admin Dose Admin Diltiazem HCl 125 mg/Sodium Chloride 125 ml @ 5 mls/hr 1X ONCE IV 02/19/20 15:15 02/20/20 16:14 02/19/20 15:15 Levofloxacin/ Dextrose 150 ml @ 100 mls/hr 1X ONCE IV 02/19/20 16:45 02/19/20 18:14 DC 02/19/20 17:09 Metoprolol Tartrate (Lopressor Vial) 5 mg 1X ONCE IVP 02/19/20 18:15 02/19/20 18:16 DC 02/19/20 18:30 Dronedarone (Multaq) 400 mg 1X ONCE PO 02/19/20 22:45 02/19/20 22:46 DC 02/19/20 23:18 Pantoprazole Sodium (Protonix) 40 mg 1X ONCE PO 02/19/20 22:45 02/19/20 22:46 DC 02/19/20 23:17 Metoprolol Tartrate (Lopressor) 25 mg 1X ONCE PO 02/19/20 22:45 02/19/20 22:46 DC 02/19/20 23:17 Enoxaparin Sodium (Lovenox 100mg Syringe) 90 mg Q12HR SQ 02/19/20 22:45 02/20/20 14:17 DC 02/20/20 08:00 Diltiazem HCl 125 mg/Sodium Chloride 125 ml @ 10 mls/hr CONT PRN IV SEE I/O RECORD 02/20/20 00:30 02/20/20 12:44 DC 02/20/20 01:05 Dronedarone (Multaq) 400 mg BID PO 02/20/20 09:00 02/20/20 12:44 DC 02/20/20 08:02 Lorazepam (Ativan) 1 mg DAILY PO 02/20/20 09:00 02/20/20 08:01 Metoprolol Tartrate (Lopressor) 25 mg BID PO 02/20/20 09:00 02/20/20 08:02 Oxybutynin Chloride (Ditropan) 15 mg DAILY PO 02/20/20 09:00 02/20/20 08:02 Celecoxib (CeleBREX) 200 mg DAILY PO 02/20/20 09:00 02/20/20 08:01 Multivitamins (Thera M Plus) 1 tab DAILY PO 02/20/20 09:00 02/20/20 08:02 Pantoprazole Sodium (Protonix) 40 mg BIDAC PO 02/20/20 07:30 02/20/20 08:00 Losartan Potassium (Cozaar) 100 mg DAILY PO 02/20/20 09:00 02/20/20 12:44 DC 02/20/20 08:01 Hydrochlorothiazide (Microzide) 12.5 mg DAILY PO 02/20/20 09:00 02/20/20 12:45 DC 02/20/20 08:01 Furosemide (Lasix) 40 mg 1X ONCE IVP 02/20/20 10:00 02/20/20 10:01 DC 02/20/20 10:30 Metoprolol Tartrate (Lopressor) 25 mg Q6HRS PO 02/20/20 12:45 02/20/20 14:01 Amiodarone HCl (Cordarone) 400 mg BID PO 02/20/20 13:00 02/20/20 14:01 JODI GALICIA MD Feb 20, 2020 14:47
[2020-02-20 14:56] LABS: CALCIUM 8.6 mg/dL (8.5-10.1); CREATININE 0.9 mg/dL (0.6-1.0); GFR 60.2; POTASSIUM 3.5 mmol/L (3.5-5.1)
[2020-02-20 14:57] LABS: MAGNESIUM 1.8 mg/dL (1.8-2.4)
--- NOTE | 2020-02-20 15:46 | NUR ---
Pharmacy Warfarin Dosing Note S:Pharmacy consulted to assist with anticoagulation therapy started with target INR: 2 -3 O:PAMELA CARRION P is a 79 year old F with Atrial Fibrillation LABS: Last INR: 1.2 Last HGB: 10.8 Last HCT: 32.7 Last PLT: 282 Last dose of given on at Previous Regimen: Vitamin K given: Drug Interaction Changes: Ongoing Drug Interactions: A:INR of 1.2 is below desired range. Target range for this patient is: 2 -3 P: Warfarin dose: 5 mg Today at 1600 Bridge Therapy: Enoxaparin 1 mg/kg q12h Next INR due TOMORROW. Pharmacy anticoagulation service will continue to follow. ANJANA CASILLAS [facility], 02/20/20 0821
[2020-02-20] MEDS: WARFARIN 5 MG TABLET. PO ONE ×2 (16:00→16:20)
[2020-02-20] MEDS: DULoxetine HCL 30 MG CAPSULE.DR PO SCH (21:35)
[2020-02-21] VITALS (15 sets, daily range): BP systolic 109–144; BP diastolic 67–91
[2020-02-21] MEDS: METOPROLOL TART IMMED RELEASE 25 MG TABLET. PO SCH ×3 (00:14→08:33)
--- NOTE | 2020-02-21 02:09 | NUR ---
Daughter who is a nurse at the HF clinic at called and spoke with this RN with concerns of patient not being discharged on warfarin, she is unable to get her INR checked weekly, d/t debilitation. Dtr also states that per her neurologist at she will and needs to take lovenox for the duration d/t failed anticoagulation with eliquis. Dtr is really wanting patient to be transferred to , d/t her vascular technician and neurologist being there, but they are according to daughter, on diversion. This RN explained that it is not always that easy just to transfer a patient to another hospital unless requiring a higher level of care. This being said, daughter is going to follow up with tomorrow, she states that her doctors know and are aware of her situation. This RN explained to daughter that patient has been diuresed, cardiology has seen her, and now Dr. Portillo is aware of home lovenox and he is ok with her discharging home on this. Daughter is really wanting to talk to either the hospitalist or vascular technician tomorrow, this RN took daughters number and will pass on to dayshift RN. Side note....daughter also states "it isn't that you guys aren't taking good care of my mom, I just feel better with her seeing her doctors since they know her and what is going on."
[2020-02-21] MEDS: OXYBUTYNIN CHLORIDE 5 MG TABLET PO SCH (08:32)
--- NOTE | 2020-02-21 08:32 | PDOC ---
PROGRESS NOTES Date of Service: DATE: 02/21/20 TIME: 08:32 Chief Complaint Chief Complaint IMPRESSION Acute respiratory failure due to likely acute CHF COVID pneumonia and acute lung injury treated for about 5-6 weeks in the month of November at and then developed stroke while at the rehabfacility and has been tested negative 5 times since then. acute on chronic diastolic CHF AFIB RVR, UNCONTROLLED GLADIS HTN Dyslipidemia Diabetes Obesity class II Recent COVID infection pneumonia in November Recent embolic stroke with residual left-sided hemiparesis Chronic LE lymphedema Appreciate cardiology and pulmonology recommendations Will obtain TTE when COVID is negative Continue losartan at a low dose. Continue metoprolol. DC Cardizem and HCTZ. Continue with IV Lasix diuresis Continue IV antibiotics appreciate ID recommendations Follow-up blood cultures Lovenox and warfarin for DVT prophylaxis Protonix GI prophylaxis ADA diet Full code Discussed with RN and SW Disposition inpatient Surrogate decision maker is self dpoa discussion, review 8 min plan HOME HEALTH History of Present Illness History of Present Illness 79-year-old female with past medical history of CHF, GLADIS, CVA, COVID pneumonia who presents to the ED with complaints of shortness of breath. She was recently treated for COVID and she developed a stroke during her treatment at . She eventually went to rehab afterwards. 02/20/2020 No acute events overnight. Patient is currently being evaluated by pulmonology and cardiology. She will receive IV diuresis today. Patient's chart, labs, images were reviewed and discussed with RN Vitals Vitals Vital Signs Date Time Temp Pulse Resp B/P (MAP) Pulse Ox O2 Delivery O2 Flow Rate FiO2 02/21/20 07:00 97.6 128 21 139/85 (103) 99 Nasal Cannula 4.0 97.6 Physical Exam General: Alert, Oriented X3, Cooperative, No acute distress Heart: Other (AFIB; distant heart sounds) Abdomen: Soft, No tenderness, Other (obese) Extremities: No cyanosis, Other (2+ bilateral LE pitting edema) Skin: No breakdown Labs LABS Single AP view of the chest. Comparison: None. Indication: Shortness of air Findings: The heart is enlarged. There is no pneumothorax or effusion. Coarse bilateral interstitial infiltrates are seen. There is some component of airspace disease in the right lung base. Impression: 1. Coarse interstitial opacities are identified throughout the lungs with some airspace disease in right lung base. Findings suggest pulmonary edema or atypical infection. Electronically signed by: Geronimo Griggs MD (02/19/2020 3:32 PM) [id number] DICTATED and SIGNED BY: GERONIMO GRIGGS MD DATE: 02/19/20 1537 Laboratory Tests Test 02/20/20 13:55 02/20/20 14:20 02/20/20 14:30 02/20/20 17:10 Prothrombin Time 15.0 SEC (11.7-14.0) Prothromb Time International Ratio 1.2 (0.8-1.1) Thyroid Stimulating Hormone (TSH) 1.099 uIU/mL (0.358-3.74) Urine Collection Type Unknown Urine Color Yellow Urine Clarity Clear Urine pH 5.5 (<5.0-8.0) Urine Specific [place] 1.010 (1.000-1.030) Urine Protein Negative mg/dL (NEG-TRACE) Urine Glucose (UA) Negative mg/dL (NEG) Urine Ketones (Stick) Negative mg/dL (NEG) Urine Blood Negative (NEG) Urine Nitrite Negative (NEG) Urine Bilirubin Negative (NEG) Urine Urobilinogen Dipstick 0.2 mg/dL (0.2 mg/dL) Urine Leukocyte Esterase Small (NEG) Urine RBC Rare /HPF (0-2) Urine WBC 5-10 /HPF (0-4) Urine Squamous Epithelial Cells Mod /LPF Urine Bacteria Few /HPF (0-FEW) Sodium Level 141 mmol/L (136-145) Potassium Level 3.5 mmol/L (3.5-5.1) Chloride Level 106 mmol/L (98-107) Carbon Dioxide Level 26 mmol/L (21-32) Anion Gap 9 (6-14) Blood Urea Nitrogen 20 mg/dL (7-20) Creatinine 0.9 mg/dL (0.6-1.0) Estimated GFR (Cockcroft-Gault) 60.2 Glucose Level 180 mg/dL (70-99) Calcium Level 8.6 mg/dL (8.5-10.1) Magnesium Level 1.8 mg/dL (1.8-2.4) Glucose (Fingerstick) 160 mg/dL (70-99) Test 02/20/20 20:54 02/21/20 07:14 Glucose (Fingerstick) 172 mg/dL (70-99) 122 mg/dL (70-99) Assessment and Plan Assessmemt and Plan Problems Medical Problems: (1) Atrial fibrillation with rapid ventricular response Status: Acute (2) COPD exacerbation Status: Acute (3) Dyspnea Status: Acute (4) Respiratory failure Status: Acute Comment Review of Relevant I have reviewed the following items grace (where applicable) has been applied. Labs Laboratory Tests Test 02/19/20 13:56 02/19/20 16:10 02/19/20 17:05 02/19/20 22:31 White Blood Count 10.4 x10^3/uL (4.0-11.0) Red Blood Count 3.57 x10^6/uL (3.50-5.40) Hemoglobin 10.8 g/dL (12.0-15.5) Hematocrit 32.7 % (36.0-47.0) Mean Corpuscular Volume 92 fL (79-100) Mean Corpuscular Hemoglobin 30 pg (25-35) Mean Corpuscular Hemoglobin Concent 33 g/dL (31-37) Red Cell Distribution Width 17.2 % (11.5-14.5) Platelet Count 282 x10^3/uL (140-400) Neutrophils (%) (Auto) 58 % (31-73) Lymphocytes (%) (Auto) 28 % (24-48) Monocytes (%) (Auto) 9 % (0-9) Eosinophils (%) (Auto) 3 % (0-3) Basophils (%) (Auto) 2 % (0-3) Neutrophils # (Auto) 6.1 x10^3/uL (1.8-7.7) Lymphocytes # (Auto) 2.9 x10^3/uL (1.0-4.8) Monocytes # (Auto) 0.9 x10^3/uL (0.0-1.1) Eosinophils # (Auto) 0.3 x10^3/uL (0.0-0.7) Basophils # (Auto) 0.2 x10^3/uL (0.0-0.2) Prothrombin Time 14.4 SEC (11.7-14.0) Prothromb Time International Ratio 1.2 (0.8-1.1) Activated Partial Thromboplast Time 41 SEC (24-38) Sodium Level 143 mmol/L (136-145) Potassium Level 3.4 mmol/L (3.5-5.1) Chloride Level 108 mmol/L (98-107) Carbon Dioxide Level 27 mmol/L (21-32) Anion Gap 8 (6-14) Blood Urea Nitrogen 14 mg/dL (7-20) Creatinine 0.9 mg/dL (0.6-1.0) Estimated GFR (Cockcroft-Gault) 60.2 BUN/Creatinine Ratio 16 (6-20) Glucose Level 120 mg/dL (70-99) Calcium Level 7.8 mg/dL (8.5-10.1) Total Bilirubin 0.5 mg/dL (0.2-1.0) Aspartate Amino Transf (AST/SGOT) 14 U/L (15-37) Alanine Aminotransferase (ALT/SGPT) 10 U/L (14-59) Alkaline Phosphatase 54 U/L (46-116) Troponin I Quantitative < 0.017 ng/mL (0.000-0.055) ZT-Bbe-H-Type Natriuretic Peptide 99099 pg/mL (0-449) Total Protein 5.9 g/dL (6.4-8.2) Albumin 2.3 g/dL (3.4-5.0) Albumin/Globulin Ratio 0.6 (1.0-1.7) O2 Saturation 95 % (92-99) Arterial Blood pH 7.40 (7.35-7.45) Arterial Blood pCO2 at Patient Temp 35 mmHg (35-46) Arterial Blood pO2 at Patient Temp 80 mmHg (65-108) Arterial Blood HCO3 21 mmol/L (21-28) Arterial Blood Base Excess -3 mmol/L (-3-3) FiO2 4l nc Coronavirus (PCR) Not detected (Not Detected) Glucose (Fingerstick) 171 mg/dL (70-99) Test 02/20/20 08:07 02/20/20 13:55 02/20/20 14:20 02/20/20 14:30 Glucose (Fingerstick) 159 mg/dL (70-99) Prothrombin Time 15.0 SEC (11.7-14.0) Prothromb Time International Ratio 1.2 (0.8-1.1) Thyroid Stimulating Hormone (TSH) 1.099 uIU/mL (0.358-3.74) Urine Collection Type Unknown Urine Color Yellow Urine Clarity Clear Urine pH 5.5 (<5.0-8.0) Urine Specific [place] 1.010 (1.000-1.030) Urine Protein Negative mg/dL (NEG-TRACE) Urine Glucose (UA) Negative mg/dL (NEG) Urine Ketones (Stick) Negative mg/dL (NEG) Urine Blood Negative (NEG) Urine Nitrite Negative (NEG) Urine Bilirubin Negative (NEG) Urine Urobilinogen Dipstick 0.2 mg/dL (0.2 mg/dL) Urine Leukocyte Esterase Small (NEG) Urine RBC Rare /HPF (0-2) Urine WBC 5-10 /HPF (0-4) Urine Squamous Epithelial Cells Mod /LPF Urine Bacteria Few /HPF (0-FEW) Sodium Level 141 mmol/L (136-145) Potassium Level 3.5 mmol/L (3.5-5.1) Chloride Level 106 mmol/L (98-107) Carbon Dioxide Level 26 mmol/L (21-32) Anion Gap 9 (6-14) Blood Urea Nitrogen 20 mg/dL (7-20) Creatinine 0.9 mg/dL (0.6-1.0) Estimated GFR (Cockcroft-Gault) 60.2 Glucose Level 180 mg/dL (70-99) Calcium Level 8.6 mg/dL (8.5-10.1) Magnesium Level 1.8 mg/dL (1.8-2.4) Test 02/20/20 17:10 02/20/20 20:54 02/21/20 07:14 Glucose (Fingerstick) 160 mg/dL (70-99) 172 mg/dL (70-99) 122 mg/dL (70-99) Laboratory Tests Test 02/20/20 13:55 02/20/20 14:20 02/20/20 14:30 02/20/20 17:10 Prothrombin Time 15.0 SEC (11.7-14.0) Prothromb Time International Ratio 1.2 (0.8-1.1) Thyroid Stimulating Hormone (TSH) 1.099 uIU/mL (0.358-3.74) Urine Collection Type Unknown Urine Color Yellow Urine Clarity Clear Urine pH 5.5 (<5.0-8.0) Urine Specific [place] 1.010 (1.000-1.030) Urine Protein Negative mg/dL (NEG-TRACE) Urine Glucose (UA) Negative mg/dL (NEG) Urine Ketones (Stick) Negative mg/dL (NEG) Urine Blood Negative (NEG) Urine Nitrite Negative (NEG) Urine Bilirubin Negative (NEG) Urine Urobilinogen Dipstick 0.2 mg/dL (0.2 mg/dL) Urine Leukocyte Esterase Small (NEG) Urine RBC Rare /HPF (0-2) Urine WBC 5-10 /HPF (0-4) Urine Squamous Epithelial Cells Mod /LPF Urine Bacteria Few /HPF (0-FEW) Sodium Level 141 mmol/L (136-145) Potassium Level 3.5 mmol/L (3.5-5.1) Chloride Level 106 mmol/L (98-107) Carbon Dioxide Level 26 mmol/L (21-32) Anion Gap 9 (6-14) Blood Urea Nitrogen 20 mg/dL (7-20) Creatinine 0.9 mg/dL (0.6-1.0) Estimated GFR (Cockcroft-Gault) 60.2 Glucose Level 180 mg/dL (70-99) Calcium Level 8.6 mg/dL (8.5-10.1) Magnesium Level 1.8 mg/dL (1.8-2.4) Glucose (Fingerstick) 160 mg/dL (70-99) Test 02/20/20 20:54 02/21/20 07:14 Glucose (Fingerstick) 172 mg/dL (70-99) 122 mg/dL (70-99) Medications Current Medications Sodium Chloride 1,000 ml @ 1,000 mls/hr 1X ONCE IV Last administered on 02/19/20at 14:05; Start 02/19/20 at 13:30; Stop 02/19/20 at 14:29; Status DC Diltiazem HCl (Cardizem Iv Push) 20 mg 1X ONCE IVP Last administered on 02/19/20at 14:04; Start 02/19/20 at 14:00; Stop 02/19/20 at 14:01; Status DC Methylprednisolone Sodium Succinate (SOLU-Medrol 125MG VIAL) 125 mg 1X ONCE IV Last administered on 02/19/20at 14:04; Start 02/19/20 at 13:45; Stop 02/19/20 at 13:46; Status DC Albuterol/ Ipratropium (Duoneb) 3 ml 1X ONCE NEB Last administered on 02/19/20at 14:05; Start 02/19/20 at 13:45; Stop 02/19/20 at 13:46; Status DC Diltiazem HCl 125 mg/Sodium Chloride 125 ml @ 5 mls/hr 1X ONCE IV Last administered on 02/19/20at 15:15; Start 02/19/20 at 15:15; Stop 02/20/20 at 16:14; Status DC Levofloxacin/ Dextrose 150 ml @ 100 mls/hr 1X ONCE IV Last administered on 02/19/20at 17:09; Start 02/19/20 at 16:45; Stop 02/19/20 at 18:14; Status DC Metoprolol Tartrate (Lopressor Vial) 5 mg 1X ONCE IVP Last administered on 02/19/20at 18:30; Start 02/19/20 at 18:15; Stop 02/19/20 at 18:16; Status DC Enoxaparin Sodium (Lovenox Per Pharmacy Treatment Dosing) 1 each PRN DAILY PRN MC SEE COMMENTS; Start 02/19/20 at 22:30 Dronedarone (Multaq) 400 mg 1X ONCE PO Last administered on 02/19/20at 23:18; Start 02/19/20 at 22:45; Stop 02/19/20 at 22:46; Status DC Pantoprazole Sodium (Protonix) 40 mg 1X ONCE PO Last administered on 02/19/20at 23:17; Start 02/19/20 at 22:45; Stop 02/19/20 at 22:46; Status DC Metoprolol Tartrate (Lopressor) 25 mg 1X ONCE PO Last administered on 02/19/20at 23:17; Start 02/19/20 at 22:45; Stop 02/19/20 at 22:46; Status DC Enoxaparin Sodium (Lovenox 100mg Syringe) 90 mg Q12HR SQ Last administered on 02/20/20at 08:00; Start 02/19/20 at 22:45; Stop 02/20/20 at 14:17; Status DC Diltiazem HCl 125 mg/Sodium Chloride 125 ml @ 10 mls/hr CONT PRN IV SEE I/O RECORD Last administered on 02/20/20at 01:05; Start 02/20/20 at 00:30; Stop 02/20/20 at 12:44; Status DC Dronedarone (Multaq) 400 mg BID PO Last administered on 02/20/20at 08:02; Start 02/20/20 at 09:00; Stop 02/20/20 at 12:44; Status DC Lorazepam (Ativan) 1 mg DAILY PO Last administered on 02/20/20at 08:01; Start 02/20/20 at 09:00 Metoprolol Tartrate (Lopressor) 25 mg BID PO Last administered on 02/20/20 08:02; Start 02/20/20 at 09:00 Oxybutynin Chloride (Ditropan) 15 mg DAILY PO Last administered on 02/20/20at 08:02; Start 02/20/20 at 09:00 Celecoxib (CeleBREX) 200 mg DAILY PO Last administered on 02/20/20at 08:01; Start 02/20/20 at 09:00 Duloxetine HCl (Cymbalta) 60 mg HS PO Last administered on 02/20/20at 21:35; Start 02/20/20 at 21:00 Non-Formulary Medication (Losartan/ Hydrochlorothiazide (Losartan-Hctz 100-12.5 Mg Tab)) 1 each DAILY PO ; Start 02/20/20 at 09:00; Status UNV Multivitamins (Thera M Plus) 1 tab DAILY PO Last administered on 02/20/20at 08:02; Start 02/20/20 at 09:00 Pantoprazole Sodium (Protonix) 40 mg BIDAC PO Last administered on 02/20/20at 16:20; Start 02/20/20 at 07:30 Losartan Potassium (Cozaar) 100 mg DAILY PO Last administered on 02/20/20at 08:01; Start 02/20/20 at 09:00; Stop 02/20/20 at 12:44; Status DC Hydrochlorothiazide (Microzide) 12.5 mg DAILY PO Last administered on 02/20/20at 08:01; Start 02/20/20 at 09:00; Stop 02/20/20 at 12:45; Status DC Potassium Chloride (Klor-Con) 40 meq 1X PRN PRN PO SEE COMMENTS; Start 02/20/20 at 08:30 Potassium Chloride/Water 100 ml @ 100 mls/hr PRN Q1HR PRN IV SEE COMMENTS; Start 02/20/20 at 08:30 Magnesium Sulfate 50 ml @ 25 mls/hr PRN DAILY PRN IV SEE COMMENTS; Start 02/20/20 at 08:30 Potassium Phos/ Sodium Phos (Phos-Nak) 1 pkt PRN BID PRN PO SEE COMMENTS; Start 02/20/20 at 09:00 Potassium Bicarbonate (Potassium Effervescent Tablet) 40 meq PRN Q4HRS PRN PO SEE COMMENTS; Start 02/20/20 at 08:30 Potassium Chloride/Water 100 ml @ 100 mls/hr PRN Q1HR PRN IV SEE COMMENTS; Start 02/20/20 at 08:30 Furosemide (Lasix) 40 mg 1X ONCE IVP Last administered on 02/20/20at 10:30; Start 02/20/20 at 10:00; Stop 02/20/20 at 10:01; Status DC Info (Anti-Coagulation Monitoring By Pharmacy) 1 each PRN DAILY PRN MC SEE COMMENTS; Start 02/20/20 at 11:30 Losartan Potassium (Cozaar) 50 mg DAILY PO ; Start 02/21/20 at 09:00 Warfarin Sodium (Coumadin Per Pharmacy) 1 each PRN DAILY PRN MC SEE COMMENTS Last administered on 02/20/20at 15:45; Start 02/20/20 at 12:45 Metoprolol Tartrate (Lopressor) 25 mg Q6HRS PO Last administered on 02/21/20at 06:14; Start 02/20/20 at 12:45 Amiodarone HCl (Cordarone) 400 mg BID PO Last administered on 02/20/20at 21:28; Start 02/20/20 at 13:00 Enoxaparin Sodium (Lovenox 100mg Syringe) 100 mg Q12HR SQ Last administered on 02/20/20at 21:29; Start 02/20/20 at 21:00 Warfarin Sodium (Coumadin) 5 mg 1X WARF ONCE PO ; Start 02/20/20 at 16:00; S top 02/20/20 at 16:01; Status DC Furosemide (Lasix) 40 mg DAILY IVP ; Start 02/21/20 at 09:00 Active Scripts Active Reported Multi Vitamin Daily (Multivitamin) 1 Each Tablet 1 Tab PO DAILY 30 Days Cymbalta (Duloxetine Hcl) 60 Mg Capsule.dr 60 Mg PO HS Eliquis (Apixaban) 5 Mg Tablet 5 Mg PO DAILY Losartan-Hctz 100-12.5 Mg Tab (Losartan/Hydrochlorothiazide) 1 Each Tablet 1 Each PO DAILY Ativan (Lorazepam) 1 Mg Tablet 1 Mg PO DAILY Oxybutynin Chloride 5 Mg Tablet 15 Mg PO DAILY Multaq (Dronedarone Hcl) 400 Mg Tablet 400 Mg PO BID Metoprolol Tartrate 25 Mg Tablet 25 Mg PO BID Celebrex (Celecoxib) 200 Mg Capsule 200 Mg PO DAILY 30 Days Protonix (Pantoprazole Sodium) 20 Mg Tablet.dr 40 Mg PO BID Vitals/I & O Vital Sign - Last 24 Hours 02/20/20 02/20/20 02/20/20 02/20/20 11:00 14:01 14:01 15:00 Temp 97.3 98.0 97.3 98.0 Pulse 95 95 95 97 Resp B/P (MAP) 117/62 (80) 117/62 117/62 110/56 (74) Pulse Ox 93 O2 Delivery Nasal Cannula Nasal Cannula O2 Flow Rate 4.0 4.0 02/20/20 02/20/20 02/20/20 02/20/20 16:50 17:49 19:00 20:00 Temp 97.4 97.8 97.4 97.8 Pulse 102 102 128 Resp B/P (MAP) 134/54 (80) 134/54 102/58 (73) Pulse Ox 100 100 O2 Delivery Nasal Cannula Nasal Cannula Nasal Cannula O2 Flow Rate 4.0 4.0 4.0 02/20/20 02/20/20 02/20/20 02/21/20 21:00 21:28 23:13 00:14 Temp 97.9 97.9 Pulse 128 107 123 128 22 B/P (MAP) 102/58 110/65 110/65 (80) 109/67 Pulse Ox 99 O2 Delivery Nasal Cannula O2 Flow Rate 4.0 02/21/20 02/21/20 02/21/20 02:56 06:14 07:00 Temp 97.8 97.6 97.8 97.6 Pulse 123 119 128 Resp B/P (MAP) 109/67 (81) 139/85 139/85 (103) Pulse Ox 96 99 O2 Delivery Nasal Cannula Nasal Cannula O2 Flow Rate 4.0 4.0 Intake and Output 02/20/20 02/20/20 02/21/20 15:00 23:00 07:00 Intake Total 600 ml 280 ml Output Total 800 ml 300 ml Balance 600 ml -520 ml -300 ml Justicifation of Admission Dx: Justifications for Admission: Justification of Admission Dx: Yes CHF: Cardiac Arrhythmias ELINA POON MD Feb 21, 2020 08:32
[2020-02-21] MEDS: AMIODARONE HCL 200 MG TABLET. PO SCH (08:33)
[2020-02-21] MEDS: CELECOXIB 100 MG CAPSULE. PO SCH (08:33)
[2020-02-21] MEDS: PANTOPRAZOLE 40 MG TABLET.DR. PO SCH ×2 (08:33→15:37)
[2020-02-21] MEDS: MULTIVITAMIN with MINERAL TABLET. PO SCH (08:33)
[2020-02-21] MEDS: FUROSEMIDE 40 MG/4 ML VIAL. IVP SCH (08:34)
[2020-02-21] MEDS: LOSARTAN POTASSIUM 50 MG TABLET. PO SCH (08:34)
--- NOTE | 2020-02-21 10:31 | PDOC ---
PULMONARY PROGRESS NOTES DATE: 02/21/20 TIME: 10:29 Subjective feels better post diuresis Vitals Vital Signs Date Time Temp Pulse Resp B/P (MAP) Pulse Ox O2 Delivery O2 Flow Rate FiO2 02/21/20 08:34 128 139/85 02/21/20 08:00 Nasal Cannula 4.0 02/21/20 07:00 97.6 21 99 97.6 General: Alert, No acute distress Lungs: Clear Abdomen: Soft Neuro Exam: Alert Extremities: Other (t1+edema) Labs Laboratory Tests Test 02/19/20 13:56 02/19/20 16:10 02/19/20 17:05 02/19/20 22:31 White Blood Count 10.4 x10^3/uL (4.0-11.0) Red Blood Count 3.57 x10^6/uL (3.50-5.40) Hemoglobin 10.8 g/dL (12.0-15.5) Hematocrit 32.7 % (36.0-47.0) Mean Corpuscular Volume 92 fL (79-100) Mean Corpuscular Hemoglobin 30 pg (25-35) Mean Corpuscular Hemoglobin Concent 33 g/dL (31-37) Red Cell Distribution Width 17.2 % (11.5-14.5) Platelet Count 282 x10^3/uL (140-400) Neutrophils (%) (Auto) 58 % (31-73) Lymphocytes (%) (Auto) 28 % (24-48) Monocytes (%) (Auto) 9 % (0-9) Eosinophils (%) (Auto) 3 % (0-3) Basophils (%) (Auto) 2 % (0-3) Neutrophils # (Auto) 6.1 x10^3/uL (1.8-7.7) Lymphocytes # (Auto) 2.9 x10^3/uL (1.0-4.8) Monocytes # (Auto) 0.9 x10^3/uL (0.0-1.1) Eosinophils # (Auto) 0.3 x10^3/uL (0.0-0.7) Basophils # (Auto) 0.2 x10^3/uL (0.0-0.2) Prothrombin Time 14.4 SEC (11.7-14.0) Prothromb Time International Ratio 1.2 (0.8-1.1) Activated Partial Thromboplast Time 41 SEC (24-38) Sodium Level 143 mmol/L (136-145) Potassium Level 3.4 mmol/L (3.5-5.1) Chloride Level 108 mmol/L (98-107) Carbon Dioxide Level 27 mmol/L (21-32) Anion Gap 8 (6-14) Blood Urea Nitrogen 14 mg/dL (7-20) Creatinine 0.9 mg/dL (0.6-1.0) Estimated GFR (Cockcroft-Gault) 60.2 BUN/Creatinine Ratio 16 (6-20) Glucose Level 120 mg/dL (70-99) Calcium Level 7.8 mg/dL (8.5-10.1) Total Bilirubin 0.5 mg/dL (0.2-1.0) Aspartate Amino Transf (AST/SGOT) 14 U/L (15-37) Alanine Aminotransferase (ALT/SGPT) 10 U/L (14-59) Alkaline Phosphatase 54 U/L (46-116) Troponin I Quantitative < 0.017 ng/mL (0.000-0.055) XU-Nna-N-Type Natriuretic Peptide 75885 pg/mL (0-449) Total Protein 5.9 g/dL (6.4-8.2) Albumin 2.3 g/dL (3.4-5.0) Albumin/Globulin Ratio 0.6 (1.0-1.7) O2 Saturation 95 % (92-99) Arterial Blood pH 7.40 (7.35-7.45) Arterial Blood pCO2 at Patient Temp 35 mmHg (35-46) Arterial Blood pO2 at Patient Temp 80 mmHg (65-108) Arterial Blood HCO3 21 mmol/L (21-28) Arterial Blood Base Excess -3 mmol/L (-3-3) FiO2 4l nc Coronavirus (PCR) Not detected (Not Detected) Glucose (Fingerstick) 171 mg/dL (70-99) Test 02/20/20 08:07 02/20/20 13:55 02/20/20 14:20 02/20/20 14:30 Glucose (Fingerstick) 159 mg/dL (70-99) Prothrombin Time 15.0 SEC (11.7-14.0) Prothromb Time International Ratio 1.2 (0.8-1.1) Thyroid Stimulating Hormone (TSH) 1.099 uIU/mL (0.358-3.74) Urine Collection Type Unknown Urine Color Yellow Urine Clarity Clear Urine pH 5.5 (<5.0-8.0) Urine Specific [place] 1.010 (1.000-1.030) Urine Protein Negative mg/dL (NEG-TRACE) Urine Glucose (UA) Negative mg/dL (NEG) Urine Ketones (Stick) Negative mg/dL (NEG) Urine Blood Negative (NEG) Urine Nitrite Negative (NEG) Urine Bilirubin Negative (NEG) Urine Urobilinogen Dipstick 0.2 mg/dL (0.2 mg/dL) Urine Leukocyte Esterase Small (NEG) Urine RBC Rare /HPF (0-2) Urine WBC 5-10 /HPF (0-4) Urine Squamous Epithelial Cells Mod /LPF Urine Bacteria Few /HPF (0-FEW) Sodium Level 141 mmol/L (136-145) Potassium Level 3.5 mmol/L (3.5-5.1) Chloride Level 106 mmol/L (98-107) Carbon Dioxide Level 26 mmol/L (21-32) Anion Gap 9 (6-14) Blood Urea Nitrogen 20 mg/dL (7-20) Creatinine 0.9 mg/dL (0.6-1.0) Estimated GFR (Cockcroft-Gault) 60.2 Glucose Level 180 mg/dL (70-99) Calcium Level 8.6 mg/dL (8.5-10.1) Magnesium Level 1.8 mg/dL (1.8-2.4) Test 02/20/20 17:10 02/20/20 20:54 02/21/20 07:14 Glucose (Fingerstick) 160 mg/dL (70-99) 172 mg/dL (70-99) 122 mg/dL (70-99) Laboratory Tests Test 02/20/20 13:55 02/20/20 14:20 02/20/20 14:30 02/20/20 17:10 Prothrombin Time 15.0 SEC (11.7-14.0) Prothromb Time International Ratio 1.2 (0.8-1.1) Thyroid Stimulating Hormone (TSH) 1.099 uIU/mL (0.358-3.74) Urine Collection Type Unknown Urine Color Yellow Urine Clarity Clear Urine pH 5.5 (<5.0-8.0) Urine Specific [place] 1.010 (1.000-1.030) Urine Protein Negative mg/dL (NEG-TRACE) Urine Glucose (UA) Negative mg/dL (NEG) Urine Ketones (Stick) Negative mg/dL (NEG) Urine Blood Negative (NEG) Urine Nitrite Negative (NEG) Urine Bilirubin Negative (NEG) Urine Urobilinogen Dipstick 0.2 mg/dL (0.2 mg/dL) Urine Leukocyte Esterase Small (NEG) Urine RBC Rare /HPF (0-2) Urine WBC 5-10 /HPF (0-4) Urine Squamous Epithelial Cells Mod /LPF Urine Bacteria Few /HPF (0-FEW) Sodium Level 141 mmol/L (136-145) Potassium Level 3.5 mmol/L (3.5-5.1) Chloride Level 106 mmol/L (98-107) Carbon Dioxide Level 26 mmol/L (21-32) Anion Gap 9 (6-14) Blood Urea Nitrogen 20 mg/dL (7-20) Creatinine 0.9 mg/dL (0.6-1.0) Estimated GFR (Cockcroft-Gault) 60.2 Glucose Level 180 mg/dL (70-99) Calcium Level 8.6 mg/dL (8.5-10.1) Magnesium Level 1.8 mg/dL (1.8-2.4) Glucose (Fingerstick) 160 mg/dL (70-99) Test 02/20/20 20:54 02/21/20 07:14 Glucose (Fingerstick) 172 mg/dL (70-99) 122 mg/dL (70-99) Medications Active Scripts Medications Dose Route/Sig Max Daily Dose Days Date Category Multi Vitamin Daily (Multivitamin) 1 Each Tablet 1 Tab PO DAILY 30 02/20/20 Reported Cymbalta (Duloxetine Hcl) 60 Mg Capsule.dr 60 Mg PO HS 02/20/20 Reported Eliquis (Apixaban) 5 Mg Tablet 5 Mg PO DAILY 02/20/20 Reported Losartan-Hctz 100-12.5 Mg Tab (Losartan/Hydrochlorothiazide) 1 Each Tablet 1 Each PO DAILY 02/20/20 Reported Ativan (Lorazepam) 1 Mg Tablet 1 Mg PO DAILY 02/20/20 Reported Oxybutynin Chloride 5 Mg Tablet 15 Mg PO DAILY 02/20/20 Reported Multaq (Dronedarone Hcl) 400 Mg Tablet 400 Mg PO BID 02/19/20 Reported Metoprolol Tartrate 25 Mg Tablet 25 Mg PO BID 02/19/20 Reported Celebrex (Celecoxib) 200 Mg Capsule 200 Mg PO DAILY 30 02/19/20 Reported Protonix (Pantoprazole Sodium) 20 Mg Tablet.dr 40 Mg PO BID 02/19/20 Reported Impression . 1. Acute hypoxic respiratory failure, secondary to acute congestive heart failure. Triggered by atrial fibrillation with rapid ventricular response. 2. The patient with COVID pneumonia and acute lung injury treated for about 5-6 weeks in the month of November at and then developed stroke while at the rehab facility and has been tested negative 5 times since then. Now comes in with acute hypoxic respiratory failure, which is likely caused by congestive heart failure. Low clinical suspicion for recurrent COVID infection. repeat test neg 3. Minimal tobacco history. 4. History of atrial fibrillation. 5. Abnormal chest x-ray with diffuse bilateral interstitial infiltrates consistent with congestive heart failure. 6. No evidence of deep venous thrombosis in the lower extremity. Plan . 1. Continue present oxygen. 2. diuresis, 3. Follow chest x-ray after adequate diuresis in am 4. Follow Cardiology recommendations regarding atrial fibrillation. 5. Anticoagulation per Cardiology for AFib. 6. Cardizem for AFib. 7. Discussed with RN and we will follow along with you. BRITNI GARCIA MD Feb 21, 2020 10:31
[2020-02-21 10:38] LABS: PROTHROMBIN TIME PATIENT 13.9 SEC (11.7-14.0)
[2020-02-21 10:40] LABS: CREATININE 1.1 mg/dL (0.6-1.0); GFR 47.8; MAGNESIUM 1.8 mg/dL (1.8-2.4); PHOSPHORUS 3.7 mg/dL (2.6-4.7); POTASSIUM 3.3 mmol/L (3.5-5.1)
[2020-02-21 11:02] LABS: BASO # 0.1 x10^3/uL (0.0-0.2); BASO % 1 % (0-3); EOS # 0.1 x10^3/uL (0.0-0.7); EOS % 1 % (0-3); HEMATOCRIT 31.8 % (36.0-47.0); HEMOGLOBIN 10.5 g/dL (12.0-15.5); LYMPH # 2.2 x10^3/uL (1.0-4.8); LYMPH % 24 % (24-48); MEAN CORPUSCULAR HEMOGLOBIN 31 pg (25-35); MEAN CORPUSCULAR HGB CONC 33 g/dL (31-37); MEAN CORPUSCULAR VOLUME 92 fL (79-100); MONO # 0.7 x10^3/uL (0.0-1.1); MONO % 8 % (0-9); NEUT % 66 % (31-73); PLATELET COUNT 334 x10^3/uL (140-400); RED BLOOD COUNT 3.45 x10^6/uL (3.50-5.40); RED CELL DISTRIBUTION WIDTH 17.1 % (11.5-14.5); WHITE BLOOD COUNT 9.1 x10^3/uL (4.0-11.0)
--- NOTE | 2020-02-21 11:32 | PDOC ---
JUNE LOPEZ COMMERCIAL SALES MANAGER 02/21/20 1132: CARDIO Progress Notes Date and Time Date of Service 02/21/20 Time of Evaluation 1120 Subjective Subjective: No Chest Pain, No Palpitations, Other (GLADIS improved) Vitals Vitals Vital Signs Date Time Temp Pulse Resp B/P (MAP) Pulse Ox O2 Delivery O2 Flow Rate FiO2 02/21/20 10:38 97.7 127 21 113/73 (86) 98 Nasal Cannula 4.0 97.7 Weight Weight [ ] Input and Output Intake and Output Intake and Output 02/21/20 06:59 Intake Total 880 ml Output Total 1100 ml Balance -220 ml Intake Oral 880 ml Output Urine Total 1100 ml Laboratory Labs Laboratory Tests Test 02/20/20 13:55 02/20/20 14:20 02/20/20 14:30 02/20/20 17:10 Prothrombin Time 15.0 SEC (11.7-14.0) Prothromb Time International Ratio 1.2 (0.8-1.1) Thyroid Stimulating Hormone (TSH) 1.099 uIU/mL (0.358-3.74) Urine Collection Type Unknown Urine Color Yellow Urine Clarity Clear Urine pH 5.5 (<5.0-8.0) Urine Specific [place] 1.010 (1.000-1.030) Urine Protein Negative mg/dL (NEG-TRACE) Urine Glucose (UA) Negative mg/dL (NEG) Urine Ketones (Stick) Negative mg/dL (NEG) Urine Blood Negative (NEG) Urine Nitrite Negative (NEG) Urine Bilirubin Negative (NEG) Urine Urobilinogen Dipstick 0.2 mg/dL (0.2 mg/dL) Urine Leukocyte Esterase Small (NEG) Urine RBC Rare /HPF (0-2) Urine WBC 5-10 /HPF (0-4) Urine Squamous Epithelial Cells Mod /LPF Urine Bacteria Few /HPF (0-FEW) Sodium Level 141 mmol/L (136-145) Potassium Level 3.5 mmol/L (3.5-5.1) Chloride Level 106 mmol/L (98-107) Carbon Dioxide Level 26 mmol/L (21-32) Anion Gap 9 (6-14) Blood Urea Nitrogen 20 mg/dL (7-20) Creatinine 0.9 mg/dL (0.6-1.0) Estimated GFR (Cockcroft-Gault) 60.2 Glucose Level 180 mg/dL (70-99) Calcium Level 8.6 mg/dL (8.5-10.1) Magnesium Level 1.8 mg/dL (1.8-2.4) Glucose (Fingerstick) 160 mg/dL (70-99) Test 02/20/20 20:54 02/21/20 07:14 02/21/20 10:20 Glucose (Fingerstick) 172 mg/dL (70-99) 122 mg/dL (70-99) White Blood Count 9.1 x10^3/uL (4.0-11.0) Red Blood Count 3.45 x10^6/uL (3.50-5.40) Hemoglobin 10.5 g/dL (12.0-15.5) Hematocrit 31.8 % (36.0-47.0) Mean Corpuscular Volume 92 fL (79-100) Mean Corpuscular Hemoglobin 31 pg (25-35) Mean Corpuscular Hemoglobin Concent 33 g/dL (31-37) Red Cell Distribution Width 17.1 % (11.5-14.5) Platelet Count 334 x10^3/uL (140-400) Neutrophils (%) (Auto) 66 % (31-73) Lymphocytes (%) (Auto) 24 % (24-48) Monocytes (%) (Auto) 8 % (0-9) Eosinophils (%) (Auto) 1 % (0-3) Basophils (%) (Auto) 1 % (0-3) Neutrophils # (Auto) 6.0 x10^3/uL (1.8-7.7) Lymphocytes # (Auto) 2.2 x10^3/uL (1.0-4.8) Monocytes # (Auto) 0.7 x10^3/uL (0.0-1.1) Eosinophils # (Auto) 0.1 x10^3/uL (0.0-0.7) Basophils # (Auto) 0.1 x10^3/uL (0.0-0.2) Prothrombin Time 13.9 SEC (11.7-14.0) Prothromb Time International Ratio 1.1 (0.8-1.1) Sodium Level 142 mmol/L (136-145) Potassium Level 3.3 mmol/L (3.5-5.1) Chloride Level 105 mmol/L (98-107) Carbon Dioxide Level 28 mmol/L (21-32) Anion Gap 9 (6-14) Blood Urea Nitrogen 29 mg/dL (7-20) Creatinine 1.1 mg/dL (0.6-1.0) Estimated GFR (Cockcroft-Gault) 47.8 Glucose Level 150 mg/dL (70-99) Calcium Level 8.0 mg/dL (8.5-10.1) Phosphorus Level 3.7 mg/dL (2.6-4.7) Magnesium Level 1.8 mg/dL (1.8-2.4) Physical Exam HEENT: Neck Supple W Full Motion Chest: Symmetric LUNGS: Other (diminished bases) Heart: irregularly irregular (AFIB rate 115-130) Abdomen: Soft N/T, Other (obese ) Extremities: Other (1-2+ bilateral LE edema ) Neurology: alert, oriented, follow commands Assessment Assessment 1. Acute on chronic systolic CHF: likely precipitated by RVR 2. Cardiomyopathy; LVEF 12/17/19 55-60%. Now 20-25%. ? tachy mediated 2. AFIB RVR: paroxysmal by hx 3. GLADIS: CPAP intolerant; uses O2 at home. 4. HTN: controlled 5. HLP: past statin intolerance 6. DM2: per pcp 7. Obesity with debility r/t CVA 8. Recently recovered from COVID-19 PNA: noted in 11/2019 with 2 negatives known early December 9. Hx of recent embolic stroke with left side hemiparesis: 10. Chronic LE lymphedema Recommendations Ongoing diuresis. Will give additional dose of Lasix this afternoon Convert metoprolol to long-acting given CMP. Continue Losartan Rate better controlled, but remains elevated. Will start Amiodarone gtt to load If rate remains uncontrolled, will consider addition of Digoxin Patient of chronic anticoagulation therapy with Lovenox at home for stroke prophylaxis. D/w daughter; neurologist specified lifelong Lovenox therapy. Warfarin was not discussed as a treatment option. Consider for outpt ischemic workup; will defer to primary accounts receivable supervisor Dr. Pa at [facility] cardiology Justicifation of Admission Dx: Justifications for Admission: Justification of Admission Dx: Yes CHF: Cardiac Arrhythmias FINA CHAPIN MD 02/21/202121: CARDIO Progress Notes Assessment Assessment Patient seen and examined. Agree with COURT BAILIFF's assessment and plan. 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 Continue diuresis. Covid negative 2D echo showed EF 20-25% diminished compared to prior echo that showed normal LVF - prob tachycardia mediated Atrial fib rate continues to be elevated - agree with amiodarone for antiarrhythmic therapy Consider outpatient cardioversion and ischemic evaluation with primary accounts receivable supervisor JUNE LOPEZ APRN Feb 21, 2020 11:32 FINA CHAPIN MD Feb 21, 2020 21:22
[2020-02-21] MEDS ORDERED: METOPROLOL TART IMMED RELEASE 25 MG TABLET. PO ONE (11:45)
--- NOTE | 2020-02-21 12:16 | CARD ---
MR#: [id number] Date of Study: 02/21/2020 Ordering Physician: NBA OLSEN, Referring Physician: NBA OLSEN, Tech: Michelle Walden YOSEPH APPROVED REPORT EXAM: LIMITED Two-dimensional echocardiogram Other Information Quality : Good Rhythm : Atrial Fibrillation INDICATION LV Function:Systolic Congestive Heart Failure 2D DIMENSIONS RVDd2.6 (2.9-3.5cm)Left Atrium(2D)3.7 (1.6-4.0cm) IVSd1.1 (0.7-1.1cm)Aortic Root(2D)3.1 (2.0-3.7cm) LVDd4.6 (3.9-5.9cm)PWd1.1 (0.7-1.1cm) LVDs4.2 (2.5-4.0cm)FS (%) 7.3 % SV15.9 mlLVEF(%)16.4 (>50%) Tricuspid Valve TR P. [id number] [id number] TR Peak Gr.[id number] LEFT VENTRICLE The left ventricle is normal size. There is normal left ventricular wall thickness. Left ventricle sy stolic function is severely impaired. The Ejection Fraction is 20-25%. There is severe global hypokin esis of the left ventricle. RIGHT VENTRICLE The right ventricle is normal size. The right ventricular systolic function is normal. ATRIA The left atrium size is normal. The right atrium size is normal. TRICUSPID VALVE The tricuspid valve is normal in structure and function. Doppler and Color Flow revealed mild tricusp id regurgitation. There is moderate pulmonary hypertension. The PA pressure was estimated at 48 mmHg. GREAT VESSELS The aortic root is normal in size. The ascending aorta is not well seen. The IVC is dilated and colla pses <50% with inspiration. PERICARDIAL EFFUSION There is no evidence of significant pericardial effusion. Critical Notification Critical Value: No <Conclusion> Left ventricle systolic function is severely impaired. The Ejection Fraction is 20-25%. Mild tricuspid regurgitation. The PA pressure was estimated at 48 mmHg. Signed by : Richard Linn, Electronically Approved : 02/21/2020 12:15:48
[2020-02-21] MEDS: AMIODARONE 450 MG in IV DEXTROSE 5% 250 ML IV PRN ×2 (13:24→21:21)
[2020-02-21] MEDS ORDERED: FUROSEMIDE 40 MG/4 ML VIAL. IVP ONE (14:00)
[2020-02-21] MEDS: DULoxetine HCL 30 MG CAPSULE.DR PO SCH (20:52)
[2020-02-21] MEDS: METOPROLOL SUCC 24HR ER 50 MG TAB.ER.24H. PO SCH (20:53)
[2020-02-22] VITALS (16 sets, daily range): BP systolic 114–185; BP diastolic 58–94
[2020-02-22 08:33] LABS: CREATININE 1.2 mg/dL (0.6-1.0); GFR 43.2; POTASSIUM 4.4 mmol/L (3.5-5.1)
[2020-02-22 08:37] LABS: PROTHROMBIN TIME PATIENT 13.9 SEC (11.7-14.0)
--- NOTE | 2020-02-22 08:43 | PDOC ---
CARDIO Progress Notes Date and Time Date of Service 02/22/2020 Time of Evaluation 0940 Subjective Subjective: No Chest Pain, No shortness of breath, No Palpitations Vitals Vitals Vital Signs Date Time Temp Pulse Resp B/P (MAP) Pulse Ox O2 Delivery O2 Flow Rate FiO2 02/22/20 07:00 97.9 86 22 147/84 (105) 97 Nasal Cannula 3.0 97.9 Weight Weight [ ] Input and Output Intake and Output Intake and Output 02/22/20 07:00 Intake Total 1468.7 ml Output Total 100 ml Balance 1368.7 ml Intake Oral 1400 ml IV Total 68.7 ml Output Urine Total 100 ml # Bowel Movements 2 Laboratory Labs Laboratory Tests Test 02/21/20 10:20 02/21/20 11:41 02/21/20 16:25 02/21/20 20:39 White Blood Count 9.1 x10^3/uL (4.0-11.0) Red Blood Count 3.45 x10^6/uL (3.50-5.40) Hemoglobin 10.5 g/dL (12.0-15.5) Hematocrit 31.8 % (36.0-47.0) Mean Corpuscular Volume 92 fL (79-100) Mean Corpuscular Hemoglobin 31 pg (25-35) Mean Corpuscular Hemoglobin Concent 33 g/dL (31-37) Red Cell Distribution Width 17.1 % (11.5-14.5) Platelet Count 334 x10^3/uL (140-400) Neutrophils (%) (Auto) 66 % (31-73) Lymphocytes (%) (Auto) 24 % (24-48) Monocytes (%) (Auto) 8 % (0-9) Eosinophils (%) (Auto) 1 % (0-3) Basophils (%) (Auto) 1 % (0-3) Neutrophils # (Auto) 6.0 x10^3/uL (1.8-7.7) Lymphocytes # (Auto) 2.2 x10^3/uL (1.0-4.8) Monocytes # (Auto) 0.7 x10^3/uL (0.0-1.1) Eosinophils # (Auto) 0.1 x10^3/uL (0.0-0.7) Basophils # (Auto) 0.1 x10^3/uL (0.0-0.2) Prothrombin Time 13.9 SEC (11.7-14.0) Prothromb Time International Ratio 1.1 (0.8-1.1) Sodium Level 142 mmol/L (136-145) Potassium Level 3.3 mmol/L (3.5-5.1) Chloride Level 105 mmol/L (98-107) Carbon Dioxide Level 28 mmol/L (21-32) Anion Gap 9 (6-14) Blood Urea Nitrogen 29 mg/dL (7-20) Creatinine 1.1 mg/dL (0.6-1.0) Estimated GFR (Cockcroft-Gault) 47.8 Glucose Level 150 mg/dL (70-99) Calcium Level 8.0 mg/dL (8.5-10.1) Phosphorus Level 3.7 mg/dL (2.6-4.7) Magnesium Level 1.8 mg/dL (1.8-2.4) Glucose (Fingerstick) 99 mg/dL (70-99) 123 mg/dL (70-99) 154 mg/dL (70-99) Test 02/22/20 07:22 Glucose (Fingerstick) 109 mg/dL (70-99) Physical Exam HEENT: Neck Supple W Full Motion Chest: Symmetric LUNGS: Other (diminished bases) Heart: RRR (SR) Abdomen: Soft N/T, Other (obese ) Extremities: Other (1+ bilateral LE edema ) Neurology: alert, oriented, follow commands Assessment Assessment 1. Acute on chronic systolic CHF: likely precipitated by RVR 2. Cardiomyopathy; LVEF 12/17/19 55-60%. Now 20-25%. ? tachy mediated 2. AFIB RVR: paroxysmal by hx. Has converted to SR 3. GLADIS: CPAP intolerant; uses O2 at home. 4. HTN: controlled 5. HLP: past statin intolerance, lipids are on goal otherwise 6. DM2: per pcp 7. Obesity with debility r/t CVA 8. Recently recovered from COVID-19 PNA in 11/2019: Covid negative 9. Hx of recent embolic stroke with left side hemiparesis: 10. Chronic LE lymphedema Recommendations Lasix therapy Convert to toprol XL, continue losartan and amiodarone Secondary prevention measures Patient of chronic anticoagulation therapy with Lovenox at home for stroke prophylaxis. D/w daughter; neurologist specified lifelong Lovenox therapy. Warfarin was not discussed as a treatment option. Family thinks unable to get of the house for INR check but self home INR monitoring was discussed as well as HH and at this time daughter (who works at HF clinic) prefers lovenox which actually just cost $100 per month. Discussed further in regards to treatment plan and needing C to further delineate any ischemic etiology in reference to her severe CM. She reiterated that she wants to get this done here and has discussed this with her . Risks and benefits discussed and agreeable to proceed. Justicifation of Admission Dx: Justifications for Admission: Justification of Admission Dx: Yes CHF: Cardiac Arrhythmias NBA OLSEN [employer] Feb 22, 2020 08:43
--- NOTE | 2020-02-22 08:45 | RAD ---
INDICATION: Reason: CHF / Spl. Instructions: / History: COMPARISON: February 19, 2020 FINDINGS: Single view of chest obtained. Cardiac silhouette is again prominent in size. Interstitial and alveolar opacities are again seen throughout the bilateral lungs and similar to prior. IMPRESSION: * Repeat demonstration of interstitial and alveolar opacities throughout the bilateral lungs which can be seen with edema or infiltrate. Electronically signed by: Tono Landis MD (02/22/2020 8:42 AM) [id number]
--- NOTE | 2020-02-22 08:54 | PDOC ---
PULMONARY PROGRESS NOTES DATE: 02/22/20 TIME: 08:54 Subjective Continues to feel better every day Remains on 4 liters N/C No SOA, No cough No overnight concerns from nursing Vitals Vital Signs Date Time Temp Pulse Resp B/P (MAP) Pulse Ox O2 Delivery O2 Flow Rate FiO2 02/22/20 07:00 97.9 86 22 147/84 (105) 97 Nasal Cannula 3.0 97.9 General: Alert, No acute distress Lungs: Clear Abdomen: Soft Neuro Exam: Alert Extremities: Other (t1+edema) Labs Laboratory Tests Test 02/20/20 13:55 02/20/20 14:20 02/20/20 14:30 02/20/20 17:10 Prothrombin Time 15.0 SEC (11.7-14.0) Prothromb Time International Ratio 1.2 (0.8-1.1) Thyroid Stimulating Hormone (TSH) 1.099 uIU/mL (0.358-3.74) Urine Collection Type Unknown Urine Color Yellow Urine Clarity Clear Urine pH 5.5 (<5.0-8.0) Urine Specific [employer] [place] 1.010 (1.000-1.030) Urine Protein Negative mg/dL (NEG-TRACE) Urine Glucose (UA) Negative mg/dL (NEG) Urine Ketones (Stick) Negative mg/dL (NEG) Urine Blood Negative (NEG) Urine Nitrite Negative (NEG) Urine Bilirubin Negative (NEG) Urine Urobilinogen Dipstick 0.2 mg/dL (0.2 mg/dL) Urine Leukocyte Esterase Small (NEG) Urine RBC Rare /HPF (0-2) Urine WBC 5-10 /HPF (0-4) Urine Squamous Epithelial Cells Mod /LPF Urine Bacteria Few /HPF (0-FEW) Sodium Level 141 mmol/L (136-145) Potassium Level 3.5 mmol/L (3.5-5.1) Chloride Level 106 mmol/L (98-107) Carbon Dioxide Level 26 mmol/L (21-32) Anion Gap 9 (6-14) Blood Urea Nitrogen 20 mg/dL (7-20) Creatinine 0.9 mg/dL (0.6-1.0) Estimated GFR (Cockcroft-Gault) 60.2 Glucose Level 180 mg/dL (70-99) Calcium Level 8.6 mg/dL (8.5-10.1) Magnesium Level 1.8 mg/dL (1.8-2.4) Glucose (Fingerstick) 160 mg/dL (70-99) Test 02/20/20 20:54 02/21/20 07:14 02/21/20 10:20 02/21/20 11:41 Glucose (Fingerstick) 172 mg/dL (70-99) 122 mg/dL (70-99) 99 mg/dL (70-99) White Blood Count 9.1 x10^3/uL (4.0-11.0) Red Blood Count 3.45 x10^6/uL (3.50-5.40) Hemoglobin 10.5 g/dL (12.0-15.5) Hematocrit 31.8 % (36.0-47.0) Mean Corpuscular Volume 92 fL (79-100) Mean Corpuscular Hemoglobin 31 pg (25-35) Mean Corpuscular Hemoglobin Concent 33 g/dL (31-37) Red Cell Distribution Width 17.1 % (11.5-14.5) Platelet Count 334 x10^3/uL (140-400) Neutrophils (%) (Auto) 66 % (31-73) Lymphocytes (%) (Auto) 24 % (24-48) Monocytes (%) (Auto) 8 % (0-9) Eosinophils (%) (Auto) 1 % (0-3) Basophils (%) (Auto) 1 % (0-3) Neutrophils # (Auto) 6.0 x10^3/uL (1.8-7.7) Lymphocytes # (Auto) 2.2 x10^3/uL (1.0-4.8) Monocytes # (Auto) 0.7 x10^3/uL (0.0-1.1) Eosinophils # (Auto) 0.1 x10^3/uL (0.0-0.7) Basophils # (Auto) 0.1 x10^3/uL (0.0-0.2) Prothrombin Time 13.9 SEC (11.7-14.0) Prothromb Time International Ratio 1.1 (0.8-1.1) Sodium Level 142 mmol/L (136-145) Potassium Level 3.3 mmol/L (3.5-5.1) Chloride Level 105 mmol/L (98-107) Carbon Dioxide Level 28 mmol/L (21-32) Anion Gap 9 (6-14) Blood Urea Nitrogen 29 mg/dL (7-20) Creatinine 1.1 mg/dL (0.6-1.0) Estimated GFR (Cockcroft-Gault) 47.8 Glucose Level 150 mg/dL (70-99) Calcium Level 8.0 mg/dL (8.5-10.1) Phosphorus Level 3.7 mg/dL (2.6-4.7) Magnesium Level 1.8 mg/dL (1.8-2.4) Test 02/21/20 16:25 02/21/20 20:39 02/22/20 07:22 02/22/20 07:40 Glucose (Fingerstick) 123 mg/dL (70-99) 154 mg/dL (70-99) 109 mg/dL (70-99) Prothrombin Time 13.9 SEC (11.7-14.0) Prothromb Time International Ratio 1.1 (0.8-1.1) Sodium Level 139 mmol/L (136-145) Potassium Level 4.4 mmol/L (3.5-5.1) Chloride Level 104 mmol/L (98-107) Carbon Dioxide Level 27 mmol/L (21-32) Anion Gap 8 (6-14) Blood Urea Nitrogen 29 mg/dL (7-20) Creatinine 1.2 mg/dL (0.6-1.0) Estimated GFR (Cockcroft-Gault) 43.2 Glucose Level 206 mg/dL (70-99) Calcium Level 8.0 mg/dL (8.5-10.1) Laboratory Tests Test 02/21/20 10:20 02/21/20 11:41 02/21/20 16:25 02/21/20 20:39 White Blood Count 9.1 x10^3/uL (4.0-11.0) Red Blood Count 3.45 x10^6/uL (3.50-5.40) Hemoglobin 10.5 g/dL (12.0-15.5) Hematocrit 31.8 % (36.0-47.0) Mean Corpuscular Volume 92 fL (79-100) Mean Corpuscular Hemoglobin 31 pg (25-35) Mean Corpuscular Hemoglobin Concent 33 g/dL (31-37) Red Cell Distribution Width 17.1 % (11.5-14.5) Platelet Count 334 x10^3/uL (140-400) Neutrophils (%) (Auto) 66 % (31-73) Lymphocytes (%) (Auto) 24 % (24-48) Monocytes (%) (Auto) 8 % (0-9) Eosinophils (%) (Auto) 1 % (0-3) Basophils (%) (Auto) 1 % (0-3) Neutrophils # (Auto) 6.0 x10^3/uL (1.8-7.7) Lymphocytes # (Auto) 2.2 x10^3/uL (1.0-4.8) Monocytes # (Auto) 0.7 x10^3/uL (0.0-1.1) Eosinophils # (Auto) 0.1 x10^3/uL (0.0-0.7) Basophils # (Auto) 0.1 x10^3/uL (0.0-0.2) Prothrombin Time 13.9 SEC (11.7-14.0) Prothromb Time International Ratio 1.1 (0.8-1.1) Sodium Level 142 mmol/L (136-145) Potassium Level 3.3 mmol/L (3.5-5.1) Chloride Level 105 mmol/L (98-107) Carbon Dioxide Level 28 mmol/L (21-32) Anion Gap 9 (6-14) Blood Urea Nitrogen 29 mg/dL (7-20) Creatinine 1.1 mg/dL (0.6-1.0) Estimated GFR (Cockcroft-Gault) 47.8 Glucose Level 150 mg/dL (70-99) Calcium Level 8.0 mg/dL (8.5-10.1) Phosphorus Level 3.7 mg/dL (2.6-4.7) Magnesium Level 1.8 mg/dL (1.8-2.4) Glucose (Fingerstick) 99 mg/dL (70-99) 123 mg/dL (70-99) 154 mg/dL (70-99) Test 02/22/20 07:22 02/22/20 07:40 Glucose (Fingerstick) 109 mg/dL (70-99) Prothrombin Time 13.9 SEC (11.7-14.0) Prothromb Time International Ratio 1.1 (0.8-1.1) Sodium Level 139 mmol/L (136-145) Potassium Level 4.4 mmol/L (3.5-5.1) Chloride Level 104 mmol/L (98-107) Carbon Dioxide Level 27 mmol/L (21-32) Anion Gap 8 (6-14) Blood Urea Nitrogen 29 mg/dL (7-20) Creatinine 1.2 mg/dL (0.6-1.0) Estimated GFR (Cockcroft-Gault) 43.2 Glucose Level 206 mg/dL (70-99) Calcium Level 8.0 mg/dL (8.5-10.1) Medications Active Scripts Medications Dose Route/Sig Max Daily Dose Days Date Category Multi Vitamin Daily (Multivitamin) 1 Each Tablet 1 Tab PO DAILY 30 02/20/20 Reported Cymbalta (Duloxetine Hcl) 60 Mg Capsule.dr 60 Mg PO HS 02/20/20 Reported Eliquis (Apixaban) 5 Mg Tablet 5 Mg PO DAILY 02/20/20 Reported Losartan-Hctz 100-12.5 Mg Tab (Losartan/Hydrochlorothiazide) 1 Each Tablet 1 Each PO DAILY 02/20/20 Reported Ativan (Lorazepam) 1 Mg Tablet 1 Mg PO DAILY 02/20/20 Reported Oxybutynin Chloride 5 Mg Tablet 15 Mg PO DAILY 02/20/20 Reported Multaq (Dronedarone Hcl) 400 Mg Tablet 400 Mg PO BID 02/19/20 Reported Metoprolol Tartrate 25 Mg Tablet 25 Mg PO BID 02/19/20 Reported Celebrex (Celecoxib) 200 Mg Capsule 200 Mg PO DAILY 30 02/19/20 Reported Protonix (Pantoprazole Sodium) 20 Mg Tablet.dr 40 Mg PO BID 02/19/20 Reported Comments CXR 02/22/20 IMPRESSION: * Repeat demonstration of interstitial and alveolar opacities throughout the bilateral lungs which can be seen with edema or infiltrate. Impression . 1. Acute hypoxic respiratory failure, secondary to acute congestive heart failure. Triggered by atrial fibrillation with rapid ventricular response. 2. The patient with COVID pneumonia and acute lung injury treated for about 5-6 weeks in the month of November at and then developed stroke while at the rehab facility and has been tested negative 5 times since then. Now comes in with acute hypoxic respiratory failure, which is likely caused by congestive heart failure. Low clinical suspicion for recurrent COVID infection. repeat test neg 3. Minimal tobacco history. 4. History of atrial fibrillation. 5. Abnormal chest x-ray with diffuse bilateral interstitial infiltrates consistent with congestive heart failure. 6. No evidence of deep venous thrombosis in the lower extremity. Left heart catheterization report Conclusion 1. Severe single-vessel coronary disease, 90% stenosis involving the left anterior descending artery. 2. Successful PCI/stent placement to the left anterior descending artery. Recommendations 1. Aspirin 81 mg daily for 1 month (patient on triple therapy) 2. Plavix 75 mg daily 3. Cardiovascular risk factor modification 4. Optimize treatment for cardiomyopathy and repeat 2D echo in 3 months. Plan . 1. Continue present oxygen, currently at 4 liters 2. diuresis, monitor renal function with diuresis 3. CXR reviewed, not much change 4. Follow Cardiology recommendations regarding atrial fibrillation., now on po amio 5. Anticoagulation per Cardiology for AFib. Discussed with VERONIQUE FULTON MD Feb 22, 2020 08:54
--- NOTE | 2020-02-22 08:58 | PDOC ---
PROGRESS NOTES Date of Service: DATE: 02/22/20 TIME: 08:57 Chief Complaint Chief Complaint IMPRESSION Acute respiratory failure due to likely acute CHF COVID pneumonia and acute lung injury treated for about 5-6 weeks in the month of November at and then developed stroke while at the rehabfacility and has been tested negative 5 times since then. acute on chronic diastolic CHF AFIB RVR, UNCONTROLLED GLADIS HTN Dyslipidemia Diabetes Obesity class II Recent COVID infection pneumonia in November Recent embolic stroke with residual left-sided hemiparesis Chronic LE lymphedema PLAN ADMIT Appreciate cardiology and pulmonology recommendations TTE when COVID is negative Continue losartan at a low dose. Continue metoprolol. DC Cardizem and HCTZ. Continue with IV Lasix diuresis Continue IV antibiotics appreciate ID recommendations Follow-up blood cultures Lovenox and warfarin for DVT prophylaxis Protonix GI prophylaxis ADA diet Full code Discussed with RN and SW Disposition inpatient Surrogate decision maker is self dpoa discussion, review 10 min 37 min pt exam, chart review, > 50% of time spent with exam, chart review, pt care coordination plan HOME HEALTH when stable History of Present Illness History of Present Illness 79-year-old female with past medical history of CHF, GLADIS, CVA, COVID pneumonia who presents to the ED with complaints of shortness of breath. She was recently treated for COVID and she developed a stroke during her treatment at . She eventually went to rehab afterwards. 02/20/2020 No acute events overnight. Patient is currently being evaluated by pulmonology and cardiology. She will receive IV diuresis today. Patient's chart, labs, images were reviewed and discussed with RN Vitals Vitals Vital Signs Date Time Temp Pulse Resp B/P (MAP) Pulse Ox O2 Delivery O2 Flow Rate FiO2 02/22/20 07:00 97.9 86 22 147/84 (105) 97 Nasal Cannula 3.0 97.9 Physical Exam General: Alert, Oriented X3, Cooperative, No acute distress Heart: Other (AFIB; distant heart sounds) Lungs: Clear Abdomen: Soft, No tenderness, Other (obese) Extremities: No cyanosis, Other (2+ bilateral LE pitting edema) Skin: No breakdown Labs LABS Laboratory Tests Test 02/21/20 10:20 02/21/20 11:41 02/21/20 16:25 02/21/20 20:39 White Blood Count 9.1 x10^3/uL (4.0-11.0) Red Blood Count 3.45 x10^6/uL (3.50-5.40) Hemoglobin 10.5 g/dL (12.0-15.5) Hematocrit 31.8 % (36.0-47.0) Mean Corpuscular Volume 92 fL (79-100) Mean Corpuscular Hemoglobin 31 pg (25-35) Mean Corpuscular Hemoglobin Concent 33 g/dL (31-37) Red Cell Distribution Width 17.1 % (11.5-14.5) Platelet Count 334 x10^3/uL (140-400) Neutrophils (%) (Auto) 66 % (31-73) Lymphocytes (%) (Auto) 24 % (24-48) Monocytes (%) (Auto) 8 % (0-9) Eosinophils (%) (Auto) 1 % (0-3) Basophils (%) (Auto) 1 % (0-3) Neutrophils # (Auto) 6.0 x10^3/uL (1.8-7.7) Lymphocytes # (Auto) 2.2 x10^3/uL (1.0-4.8) Monocytes # (Auto) 0.7 x10^3/uL (0.0-1.1) Eosinophils # (Auto) 0.1 x10^3/uL (0.0-0.7) Basophils # (Auto) 0.1 x10^3/uL (0.0-0.2) Prothrombin Time 13.9 SEC (11.7-14.0) Prothromb Time International Ratio 1.1 (0.8-1.1) Sodium Level 142 mmol/L (136-145) Potassium Level 3.3 mmol/L (3.5-5.1) Chloride Level 105 mmol/L (98-107) Carbon Dioxide Level 28 mmol/L (21-32) Anion Gap 9 (6-14) Blood Urea Nitrogen 29 mg/dL (7-20) Creatinine 1.1 mg/dL (0.6-1.0) Estimated GFR (Cockcroft-Gault) 47.8 Glucose Level 150 mg/dL (70-99) Calcium Level 8.0 mg/dL (8.5-10.1) Phosphorus Level 3.7 mg/dL (2.6-4.7) Magnesium Level 1.8 mg/dL (1.8-2.4) Glucose (Fingerstick) 99 mg/dL (70-99) 123 mg/dL (70-99) 154 mg/dL (70-99) Test 02/22/20 07:22 02/22/20 07:40 Glucose (Fingerstick) 109 mg/dL (70-99) Prothrombin Time 13.9 SEC (11.7-14.0) Prothromb Time International Ratio 1.1 (0.8-1.1) Sodium Level 139 mmol/L (136-145) Potassium Level 4.4 mmol/L (3.5-5.1) Chloride Level 104 mmol/L (98-107) Carbon Dioxide Level 27 mmol/L (21-32) Anion Gap 8 (6-14) Blood Urea Nitrogen 29 mg/dL (7-20) Creatinine 1.2 mg/dL (0.6-1.0) Estimated GFR (Cockcroft-Gault) 43.2 Glucose Level 206 mg/dL (70-99) Calcium Level 8.0 mg/dL (8.5-10.1) Assessment and Plan Assessmemt and Plan Problems Medical Problems: (1) Atrial fibrillation with rapid ventricular response Status: Acute (2) COPD exacerbation Status: Acute (3) Dyspnea Status: Acute (4) Respiratory failure Status: Acute Comment Review of Relevant I have reviewed the following items grace (where applicable) has been applied. Labs Laboratory Tests Test 02/20/20 13:55 02/20/20 14:20 02/20/20 14:30 02/20/20 17:10 Prothrombin Time 15.0 SEC (11.7-14.0) Prothromb Time International Ratio 1.2 (0.8-1.1) Thyroid Stimulating Hormone (TSH) 1.099 uIU/mL (0.358-3.74) Urine Collection Type Unknown Urine Color Yellow Urine Clarity Clear Urine pH 5.5 (<5.0-8.0) Urine Specific [place] 1.010 (1.000-1.030) Urine Protein Negative mg/dL (NEG-TRACE) Urine Glucose (UA) Negative mg/dL (NEG) Urine Ketones (Stick) Negative mg/dL (NEG) Urine Blood Negative (NEG) Urine Nitrite Negative (NEG) Urine Bilirubin Negative (NEG) Urine Urobilinogen Dipstick 0.2 mg/dL (0.2 mg/dL) Urine Leukocyte Esterase Small (NEG) Urine RBC Rare /HPF (0-2) Urine WBC 5-10 /HPF (0-4) Urine Squamous Epithelial Cells Mod /LPF Urine Bacteria Few /HPF (0-FEW) Sodium Level 141 mmol/L (136-145) Potassium Level 3.5 mmol/L (3.5-5.1) Chloride Level 106 mmol/L (98-107) Carbon Dioxide Level 26 mmol/L (21-32) Anion Gap 9 (6-14) Blood Urea Nitrogen 20 mg/dL (7-20) Creatinine 0.9 mg/dL (0.6-1.0) Estimated GFR (Cockcroft-Gault) 60.2 Glucose Level 180 mg/dL (70-99) Calcium Level 8.6 mg/dL (8.5-10.1) Magnesium Level 1.8 mg/dL (1.8-2.4) Glucose (Fingerstick) 160 mg/dL (70-99) Test 02/20/20 20:54 02/21/20 07:14 02/21/20 10:20 02/21/20 11:41 Glucose (Fingerstick) 172 mg/dL (70-99) 122 mg/dL (70-99) 99 mg/dL (70-99) White Blood Count 9.1 x10^3/uL (4.0-11.0) Red Blood Count 3.45 x10^6/uL (3.50-5.40) Hemoglobin 10.5 g/dL (12.0-15.5) Hematocrit 31.8 % (36.0-47.0) Mean Corpuscular Volume 92 fL (79-100) Mean Corpuscular Hemoglobin 31 pg (25-35) Mean Corpuscular Hemoglobin Concent 33 g/dL (31-37) Red Cell Distribution Width 17.1 % (11.5-14.5) Platelet Count 334 x10^3/uL (140-400) Neutrophils (%) (Auto) 66 % (31-73) Lymphocytes (%) (Auto) 24 % (24-48) Monocytes (%) (Auto) 8 % (0-9) Eosinophils (%) (Auto) 1 % (0-3) Basophils (%) (Auto) 1 % (0-3) Neutrophils # (Auto) 6.0 x10^3/uL (1.8-7.7) Lymphocytes # (Auto) 2.2 x10^3/uL (1.0-4.8) Monocytes # (Auto) 0.7 x10^3/uL (0.0-1.1) Eosinophils # (Auto) 0.1 x10^3/uL (0.0-0.7) Basophils # (Auto) 0.1 x10^3/uL (0.0-0.2) Prothrombin Time 13.9 SEC (11.7-14.0) Prothromb Time International Ratio 1.1 (0.8-1.1) Sodium Level 142 mmol/L (136-145) Potassium Level 3.3 mmol/L (3.5-5.1) Chloride Level 105 mmol/L (98-107) Carbon Dioxide Level 28 mmol/L (21-32) Anion Gap 9 (6-14) Blood Urea Nitrogen 29 mg/dL (7-20) Creatinine 1.1 mg/dL (0.6-1.0) Estimated GFR (Cockcroft-Gault) 47.8 Glucose Level 150 mg/dL (70-99) Calcium Level 8.0 mg/dL (8.5-10.1) Phosphorus Level 3.7 mg/dL (2.6-4.7) Magnesium Level 1.8 mg/dL (1.8-2.4) Test 02/21/20 16:25 02/21/20 20:39 02/22/20 07:22 02/22/20 07:40 Glucose (Fingerstick) 123 mg/dL (70-99) 154 mg/dL (70-99) 109 mg/dL (70-99) Prothrombin Time 13.9 SEC (11.7-14.0) Prothromb Time International Ratio 1.1 (0.8-1.1) Sodium Level 139 mmol/L (136-145) Potassium Level 4.4 mmol/L (3.5-5.1) Chloride Level 104 mmol/L (98-107) Carbon Dioxide Level 27 mmol/L (21-32) Anion Gap 8 (6-14) Blood Urea Nitrogen 29 mg/dL (7-20) Creatinine 1.2 mg/dL (0.6-1.0) Estimated GFR (Cockcroft-Gault) 43.2 Glucose Level 206 mg/dL (70-99) Calcium Level 8.0 mg/dL (8.5-10.1) Laboratory Tests Test 02/21/20 10:20 02/21/20 11:41 02/21/20 16:25 02/21/20 20:39 White Blood Count 9.1 x10^3/uL (4.0-11.0) Red Blood Count 3.45 x10^6/uL (3.50-5.40) Hemoglobin 10.5 g/dL (12.0-15.5) Hematocrit 31.8 % (36.0-47.0) Mean Corpuscular Volume 92 fL (79-100) Mean Corpuscular Hemoglobin 31 pg (25-35) Mean Corpuscular Hemoglobin Concent 33 g/dL (31-37) Red Cell Distribution Width 17.1 % (11.5-14.5) Platelet Count 334 x10^3/uL (140-400) Neutrophils (%) (Auto) 66 % (31-73) Lymphocytes (%) (Auto) 24 % (24-48) Monocytes (%) (Auto) 8 % (0-9) Eosinophils (%) (Auto) 1 % (0-3) Basophils (%) (Auto) 1 % (0-3) Neutrophils # (Auto) 6.0 x10^3/uL (1.8-7.7) Lymphocytes # (Auto) 2.2 x10^3/uL (1.0-4.8) Monocytes # (Auto) 0.7 x10^3/uL (0.0-1.1) Eosinophils # (Auto) 0.1 x10^3/uL (0.0-0.7) Basophils # (Auto) 0.1 x10^3/uL (0.0-0.2) Prothrombin Time 13.9 SEC (11.7-14.0) Prothromb Time International Ratio 1.1 (0.8-1.1) Sodium Level 142 mmol/L (136-145) Potassium Level 3.3 mmol/L (3.5-5.1) Chloride Level 105 mmol/L (98-107) Carbon Dioxide Level 28 mmol/L (21-32) Anion Gap 9 (6-14) Blood Urea Nitrogen 29 mg/dL (7-20) Creatinine 1.1 mg/dL (0.6-1.0) Estimated GFR (Cockcroft-Gault) 47.8 Glucose Level 150 mg/dL (70-99) Calcium Level 8.0 mg/dL (8.5-10.1) Phosphorus Level 3.7 mg/dL (2.6-4.7) Magnesium Level 1.8 mg/dL (1.8-2.4) Glucose (Fingerstick) 99 mg/dL (70-99) 123 mg/dL (70-99) 154 mg/dL (70-99) Test 02/22/20 07:22 02/22/20 07:40 Glucose (Fingerstick) 109 mg/dL (70-99) Prothrombin Time 13.9 SEC (11.7-14.0) Prothromb Time International Ratio 1.1 (0.8-1.1) Sodium Level 139 mmol/L (136-145) Potassium Level 4.4 mmol/L (3.5-5.1) Chloride Level 104 mmol/L (98-107) Carbon Dioxide Level 27 mmol/L (21-32) Anion Gap 8 (6-14) Blood Urea Nitrogen 29 mg/dL (7-20) Creatinine 1.2 mg/dL (0.6-1.0) Estimated GFR (Cockcroft-Gault) 43.2 Glucose Level 206 mg/dL (70-99) Calcium Level 8.0 mg/dL (8.5-10.1) Medications Current Medications Sodium Chloride 1,000 ml @ 1,000 mls/hr 1X ONCE IV Last administered on 02/19/20at 14:05; Start 02/19/20 at 13:30; Stop 02/19/20 at 14:29; Status DC Diltiazem HCl (Cardizem Iv Push) 20 mg 1X ONCE IVP Last administered on 02/19/20at 14:04; Start 02/19/20 at 14:00; Stop 02/19/20 at 14:01; Status DC Methylprednisolone Sodium Succinate (SOLU-Medrol 125MG VIAL) 125 mg 1X ONCE IV Last administered on 02/19/20at 14:04; Start 02/19/20 at 13:45; Stop 02/19/20 at 13:46; Status DC Albuterol/ Ipratropium (Duoneb) 3 ml 1X ONCE NEB Last administered on 02/19/20at 14:05; Start 02/19/20 at 13:45; Stop 02/19/20 at 13:46; Status DC Diltiazem HCl 125 mg/Sodium Chloride 125 ml @ 5 mls/hr 1X ONCE IV Last administered on 02/19/20at 15:15; Start 02/19/20 at 15:15; Stop 02/20/20 at 16:14; Status DC Levofloxacin/ Dextrose 150 ml @ 100 mls/hr 1X ONCE IV Last administered on 02/19/20at 17:09; Start 02/19/20 at 16:45; Stop 02/19/20 at 18:14; Status DC Metoprolol Tartrate (Lopressor Vial) 5 mg 1X ONCE IVP Last administered on 02/19/20at 18:30; Start 02/19/20 at 18:15; Stop 02/19/20 at 18:16; Status DC Enoxaparin Sodium (Lovenox Per Pharmacy Treatment Dosing) 1 each PRN DAILY PRN MC SEE COMMENTS; Start 02/19/20 at 22:30 Dronedarone (Multaq) 400 mg 1X ONCE PO Last administered on 02/19/20at 23:18; Start 02/19/20 at 22:45; Stop 02/19/20 at 22:46; Status DC Pantoprazole Sodium (Protonix) 40 mg 1X ONCE PO Last administered on 02/19/20at 23:17; Start 02/19/20 at 22:45; Stop 02/19/20 at 22:46; Status DC Metoprolol Tartrate (Lopressor) 25 mg 1X ONCE PO Last administered on 02/19/20at 23:17; Start 02/19/20 at 22:45; Stop 02/19/20 at 22:46; Status DC Enoxaparin Sodium (Lovenox 100mg Syringe) 90 mg Q12HR SQ Last administered on 02/20/20at 08:00; Start 02/19/20 at 22:45; Stop 02/20/20 at 14:17; Status DC Diltiazem HCl 125 mg/Sodium Chloride 125 ml @ 10 mls/hr CONT PRN IV SEE I/O RE CORD Last administered on 02/20/20at 01:05; Start 02/20/20 at 00:30; Stop 02/20/20 at 12:44; Status DC Dronedarone (Multaq) 400 mg BID PO Last administered on 02/20/20 08:02; Start 02/20/20 at 09:00; Stop 02/20/20 at 12:44; Status DC Lorazepam (Ativan) 1 mg DAILY PO Last administered on 02/21/20 08:33; Start 02/20/20 at 09:00 Metoprolol Tartrate (Lopressor) 25 mg BID PO Last administered on 02/21/20 08:33; Start 02/20/20 at 09:00; Stop 02/21/20 at 09:59; Status DC Oxybutynin Chloride (Ditropan) 15 mg DAILY PO Last administered on 02/21/20at 08:32; Start 02/20/20 at 09:00 Celecoxib (CeleBREX) 200 mg DAILY PO Last administered on 02/21/20at 08:33; Start 02/20/20 at 09:00 Duloxetine HCl (Cymbalta) 60 mg HS PO Last administered on 02/21/20at 20:52; Start 02/20/20 at 21:00 Non-Formulary Medication (Losartan/ Hydrochlorothiazide (Losartan-Hctz 100-12.5 Mg Tab)) 1 each DAILY PO ; Start 02/20/20 at 09:00; Status UNV Multivitamins (Thera M Plus) 1 tab DAILY PO Last administered on 02/21/20 08:33; Start 02/20/20 at 09:00 Pantoprazole Sodium (Protonix) 40 mg BIDAC PO Last administered on 02/21/20at 15:37; Start 02/20/20 at 07:30 Losartan Potassium (Cozaar) 100 mg DAILY PO Last administered on 02/20/20 08:01; Start 02/20/20 at 09:00; Stop 02/20/20 at 12:44; Status DC Hydrochlorothiazide (Microzide) 12.5 mg DAILY PO Last administered on 8/26/20at 08:01; Start 02/20/20 at 09:00; Stop 02/20/20 at 12:45; Status DC Potassium Chloride (Klor-Con) 40 meq 1X PRN PRN PO SEE COMMENTS Last administered on 02/21/20at 15:37; Start 02/20/20 at 08:30 Potassium Chloride/Water 100 ml @ 100 mls/hr PRN Q1HR PRN IV SEE COMMENTS; Start 02/20/20 at 08:30 Magnesium Sulfate 50 ml @ 25 mls/hr PRN DAILY PRN IV SEE COMMENTS; Start 02/20/20 at 08:30 Potassium Phos/ Sodium Phos (Phos-Nak) 1 pkt PRN BID PRN PO SEE COMMENTS; Start 02/20/20 at 09:00 Potassium Bicarbonate (Potassium Effervescent Tablet) 40 meq PRN Q4HRS PRN PO SEE COMMENTS Last administered on 02/21/20at 13:31; Start 02/20/20 at 08:30 Potassium Chloride/Water 100 ml @ 100 mls/hr PRN Q1HR PRN IV SEE COMMENTS; Start 02/20/20 at 08:30 Furosemide (Lasix) 40 mg 1X ONCE IVP Last administered on 02/20/20at 10:30; Start 02/20/20 at 10:00; Stop 02/20/20 at 10:01; Status DC Info (Anti-Coagulation Monitoring By Pharmacy) 1 each PRN DAILY PRN MC SEE COMMENTS Last administered on 02/21/20at 10:04; Start 02/20/20 at 11:30 Losartan Potassium (Cozaar) 50 mg DAILY PO Last administered on 02/21/20at 08:34; Start 02/21/20 at 09:00 Warfarin Sodium (Coumadin Per Pharmacy) 1 each PRN DAILY PRN MC SEE COMMENTS Last administered on 02/20/20at 15:45; Start 02/20/20 at 12:45; Stop 02/21/20 at 09:58; Status DC Metoprolol Tartrate (Lopressor) 25 mg Q6HRS PO Last administered on 02/21/20at 06:14; Start 02/20/20 at 12:45; Stop 02/21/20 at 13:31; Status DC Amiodarone HCl (Cordarone) 400 mg BID PO Last administered on 02/21/20at 08:33; Start 02/20/20 at 13:00; Stop 02/21/20 at 12:56; Status DC Enoxaparin Sodium (Lovenox 100mg Syringe) 100 mg Q12HR SQ Last administered on 02/21/20at 20:53; Start 02/20/20 at 21:00 Warfarin Sodium (Coumadin) 5 mg 1X WARF ONCE PO ; Start 02/20/20 at 16:00; Stop 02/20/20 at 16:01; Status DC Furosemide (Lasix) 40 mg DAILY IVP Last administered on 02/21/20at 08:34; Start 02/21/20 at 09:00 Metoprolol Tartrate (Lopressor) 25 mg 1X ONCE PO Last administered on 02/21/20at 12:23; Start 02/21/20 at 11:45; Stop 02/21/20 at 11:46; Status DC Amiodarone HCl (Cordarone) 200 mg DAILY PO ; Start 02/22/20 at 14:00 Amiodarone HCl 450 mg/Dextrose 259 ml @ 0 mls/hr CONT PRN IV SEE I/O RECORD Last administered on 02/21/20at 21:21; Start 02/21/20 at 13:00; Stop 02/21/20 at 21:21; Status DC Furosemide (Lasix) 40 mg 1X ONCE IVP Last administered on 02/21/20at 15:30; Start 02/21/20 at 14:00; Stop 02/21/20 at 14:01; Status DC Metoprolol Succinate (Toprol Xl) 50 mg BID PO Last administered on 02/21/20at 20:53; Start 02/21/20 at 21:00 Active Scripts Active Reported Multi Vitamin Daily (Multivitamin) 1 Each Tablet 1 Tab PO DAILY 30 Days Cymbalta (Duloxetine Hcl) 60 Mg Capsule.dr 60 Mg PO HS Eliquis (Apixaban) 5 Mg Tablet 5 Mg PO DAILY Losartan-Hctz 100-12.5 Mg Tab (Losartan/Hydrochlorothiazide) 1 Each Tablet 1 Each PO DAILY Ativan (Lorazepam) 1 Mg Tablet 1 Mg PO DAILY Oxybutynin Chloride 5 Mg Tablet 15 Mg PO DAILY Multaq (Dronedarone Hcl) 400 Mg Tablet 400 Mg PO BID Metoprolol Tartrate 25 Mg Tablet 25 Mg PO BID Celebrex (Celecoxib) 200 Mg Capsule 200 Mg PO DAILY 30 Days Protonix (Pantoprazole Sodium) 20 Mg Tablet.dr 40 Mg PO BID Vitals/I & O Vital Sign - Last 24 Hours 02/21/20 02/21/20 02/21/20 02/21/20 10:38 12:23 13:41 14:41 Temp 97.7 97.6 97.7 97.6 Pulse 127 127 124 104 Resp 21 21 B/P (MAP) 113/73 (86) 113/73 137/73 (94) 122/86 (98) Pulse Ox 98 99 O2 Delivery Nasal Cannula Nasal Cannula O2 Flow Rate 4.0 4.0 02/21/20 02/21/20 02/21/20 02/21/20 15:41 16:41 17:41 19:14 Pulse 131 108 60 64 B/P (MAP) 139/72 (94) 128/75 (92) 135/73 (93) 137/81 (99) 02/21/20 02/21/20 02/21/20 02/21/20 19:41 20:00 20:41 20:53 Pulse 64 72 86 B/P (MAP) 133/77 (95) 131/91 (104) 137/81 O2 Delivery Nasal Cannula O2 Flow Rate 4.0 02/21/20 02/21/20 02/21/20 02/21/20 21:41 22:41 23:15 23:41 Temp 98.0 98.0 Pulse 68 60 58 68 Resp 21 B/P (MAP) 136/68 (90) 129/68 (88) 136/68 (90) 144/68 (93) O2 Delivery Nasal Cannula O2 Flow Rate 4.0 02/22/20 02/22/20 02/22/20 02/22/20 00:41 01:41 03:21 07:00 Temp 98.1 97.9 98.1 97.9 Pulse 62 60 65 86 Resp 18 22 B/P (MAP) 134/62 (86) 138/67 (90) 138/67 (90) 147/84 (105) Pulse Ox 97 O2 Delivery Nasal Cannula Nasal Cannula O2 Flow Rate 4.0 3.0 Intake and Output 02/21/20 02/21/20 02/22/20 14:59 22:59 06:59 Intake Total 600 ml 668.7 ml 200 ml Output Total 100 ml Balance 600 ml 668.7 ml 100 ml Justicifation of Admission Dx: Justifications for Admission: Justification of Admission Dx: Yes CHF: Cardiac Arrhythmias ELINA POON MD Feb 22, 2020 08:58
[2020-02-22] MEDS: CELECOXIB 100 MG CAPSULE. PO SCH (09:33)
[2020-02-22] MEDS: OXYBUTYNIN CHLORIDE 5 MG TABLET PO SCH (09:34)
[2020-02-22] MEDS: PANTOPRAZOLE 40 MG TABLET.DR. PO SCH ×2 (09:34→18:33)
[2020-02-22] MEDS: METOPROLOL SUCC 24HR ER 50 MG TAB.ER.24H. PO SCH ×2 (09:34→20:47)
[2020-02-22] MEDS: MULTIVITAMIN with MINERAL TABLET. PO SCH (09:34)
[2020-02-22] MEDS: LOSARTAN POTASSIUM 50 MG TABLET. PO SCH (09:34)
[2020-02-22] MEDS: FUROSEMIDE 40 MG/4 ML VIAL. IVP SCH (09:37)
[2020-02-22 09:46] LABS: CHOLESTEROL/HDL RATIO 3.2
[2020-02-22] MEDS ORDERED: IODIXANOL 320 MG/ML 100 ML VIAL. ONE (11:55)
[2020-02-22] MEDS ORDERED: LIDOCAINE 1% PF 2 ML VIAL. ONE (11:55)
[2020-02-22] MEDS ORDERED: NITROGLYCERIN 200 MCG/2 ML SYRINGE FOR CATH/VASC LAB. ONE (12:07)
[2020-02-22] MEDS ORDERED: HEPARIN for IV BOLUS 10,000 UNIT/10 ML VIAL. ONE (12:07)
[2020-02-22] MEDS ORDERED: MIDAZOLAM HCL/PF 5 MG/5 ML VIAL. ONE (12:07)
[2020-02-22] MEDS ORDERED: fentaNYL PF VIAL 100 MCG/2 ML VIAL ONE (12:07)
[2020-02-22] MEDS ORDERED: VERAPAMIL 5 MG/2 ML VIAL. ONE (12:07)
--- NOTE | 2020-02-22 13:08 | PDOC ---
MODERATE SEDATION ASSESSMENT RISKS/ALTERNATIVES Risks/Alternatives Risks and alternatives of this type of sedation and procedure discussed with: RISK/ALTERNATIVES: Patient H & P ON CHART H & P H & P on chart and reviewed for co-morbid conditions and appropriate labs. H&P ON CHART: Yes STATUS PREG STATUS ASSESSED: N/A MEDS/ALLERGIES REVIEWED Meds/Allergies Reviewed Medications and Allergies including time and route of recently administered narcotics and sedatives. MEDS/ALLERGIES REVIEWED: Yes ASA RATING ASA RATING: III AIRWAY ASSESSMENT Airway Assessment Airway patency, oral function limitations, presence of caps, crowns, dentures, partials, and ability to extend neck assessed. AIRWAY ASSESSMENT: Yes MALLAMPATI SCORE MALLAMPATI SCORE: II PRE-SEDATION ASSESSMENT PRE-SEDATION ASSESSMENT: Yes FINA CHAPIN MD Feb 22, 2020 13:08
[2020-02-22] MEDS ORDERED: CONTRAST GIVEN. MC PRN (13:30)
[2020-02-22] MEDS ORDERED: HEPARIN for IV BOLUS 10,000 UNIT/10 ML VIAL. IART ONE (13:30)
[2020-02-22] MEDS ORDERED: IODIXANOL 320 MG/ML 100 ML VIAL. IART ONE (13:30)
[2020-02-22] MEDS ORDERED: LIDOCAINE 1% PF 2 ML VIAL. INJ ONE (13:30)
[2020-02-22] MEDS ORDERED: NITROGLYCERIN 200 MCG/2 ML SYRINGE FOR CATH/VASC LAB. IART ONE (13:30)
[2020-02-22] MEDS ORDERED: fentaNYL PF VIAL 100 MCG/2 ML VIAL IV ONE (13:30)
[2020-02-22] MEDS ORDERED: VERAPAMIL 5 MG/2 ML VIAL. IART ONE (13:30)
[2020-02-22] MEDS ORDERED: MIDAZOLAM HCL/PF 5 MG/5 ML VIAL. IV ONE (13:30)
[2020-02-22] MEDS ORDERED: ASPIRIN 325 MG TABLET PO ONE (13:45)
[2020-02-22] MEDS ORDERED: CLOPIDOGREL BISULFATE 75 MG TABLET PO ONE (13:45)
[2020-02-22] MEDS ORDERED: ACETAMINOPHEN 325 MG TABLET. PO PRN (14:15)
[2020-02-22] MEDS ORDERED: NITROGLYCERIN SUBLINGUAL 0.4 MG BOTTLE OF 25. SL PRN (14:15)
--- NOTE | 2020-02-22 14:18 | CARD ---
MR#: [id number] Date of Study: 02/22/2020 Ordering Physician: NBA OLSEN, Referring Physician: NBA OLSEN, Tech: RT Josseline (R) APPROVED REPORT Technologist: RT Josseline (R) Nurse: Patricia Huddleston R.N. Procedure(s) performed: 1. Left heart catheterization, selective coronary angiography via right raygoza sradial approach 2. Successful PCI/stent placement to the left anterior descending artery HEART FAILURE CLASS 4 FL TIME: 12.1 MIN DOSE: 116 GYCM2 CONTRAST: 37 ML MODERATE SEDATION: 61 MIN INDICATION The indication(s) include : Acute systolic heart failure, cardiomyopathy. [facility] Clinical Frailty Scale [facility] Clinical Frailty Scale: Mildly Frail Heart Failure Heart Failure: Yes If Yes, Newly Diagnosed: Yes If Yes, HF Type: Systolic If Yes, NYHA Class: Class III PROCEDURE NARRATIVE After explaining the risks, benefits and alternative options, informed consent was obtained from soledad ent. Patient was brought to the cardiac Barrel Waterer and right wrist was prepped and draped in the usual fashion after confirming a positive modified Bo's test. Arterial access was obtained in the righ t radial artery and a 6 Turkish sheath was inserted. 6 Turkish Anjum catheter was used to perform avi ective angiography of the left and right coronary arteries. LVEDP and transaortic gradients were jenise sured. Left ventriculography was not performed since recent 2D echo showed EF 20 to 25%. The follow ing findings were noted. FINDINGS 1. Hemodynamics: Elevated left ventricular end-diastolic pressure of 28 mmHg consistent with acute s ystolic heart failure. No pullback gradient across the aortic valve. 2. Coronary angiography: a. The left main coronary artery arose from the left sinus of Valsalva, gave rise to the left anteri or descending and left circumflex arteries and did not show any significant stenosis. b. The left anterior descending artery showed 90% stenosis in the midsegment. c. The left circumflex artery did not show any significant stenosis. d. The right coronary artery was a large and dominant vessel arising from the right sinus of Valsalv a that did not show any significant stenosis. INTERVENTION The left main coronary artery was engaged with a 6 Turkish XB 3.5 guide catheter. The stenosis in the midsegment of the left anterior descending artery was crossed with a 0.014 inch Admittedly pro-water guid ewire. This was predilated with a 3.0 x 12 mm Euphora balloon following which this was successfully treated with a 4.0 x 15 mm integrity bare-metal stent. Follow-up angiography showed resolution of th e stenosis with good distal flow. Patient tolerated the procedure well. Hemostasis was achieved usi ng TR band. There were no immediate complications. TRISTIN Flow TRISTIN Flow (Pre-Intervention): TRISTIN-2 TRISTIN Flow (Post-Intervention): TRISTIN-3 Conclusion 1. Severe single-vessel coronary disease, 90% stenosis involving the left anterior descending artery . 2. Successful PCI/stent placement to the left anterior descending artery. Recommendations 1. Aspirin 81 mg daily for 1 month (patient on triple therapy) 2. Plavix 75 mg daily 3. Cardiovascular risk factor modification 4. Optimize treatment for cardiomyopathy and repeat 2D echo in 3 months. Signed by : Richard Linn, Electronically Approved : 02/22/2020 14:18:10
[2020-02-22] MEDS: AMIODARONE HCL 200 MG TABLET. PO SCH (14:43)
--- NOTE | 2020-02-22 18:06 | NUR ---
PT HAS BEEN IN AFIB RATES BETWEEN 110S AND 150S SINCE CATH. AMIO GTT WAS DC'D EARLIER AND PO AMIO WAS GIVEN. PAGED DR ESTRADA WHO IS MOLDING MACHINE TENDER FOR CARDIOLOGY. ORDER RECEIVED FOR ANOTHER ONE TIME DOSE OF AMIODARONE RECEIVED.
[2020-02-22] MEDS ORDERED: AMIODARONE HCL 200 MG TABLET. PO ONE (18:15)
[2020-02-22] MEDS: ATORVASTATIN CALCIUM 20 MG TABLET PO SCH (20:46)
[2020-02-22] MEDS: DULoxetine HCL 30 MG CAPSULE.DR PO SCH (20:47)
[2020-02-23] VITALS (7 sets, daily range): BP systolic 117–150; BP diastolic 56–84
[2020-02-23] MEDS: PANTOPRAZOLE 40 MG TABLET.DR. PO SCH ×2 (08:41→17:28)
[2020-02-23] MEDS: OXYBUTYNIN CHLORIDE 5 MG TABLET PO SCH (08:41)
[2020-02-23] MEDS: ASPIRIN ENTERIC COATED 81 MG TABLET.DR. PO SCH (08:41)
[2020-02-23] MEDS: CLOPIDOGREL BISULFATE 75 MG TABLET PO SCH (08:41)
[2020-02-23] MEDS: LOSARTAN POTASSIUM 50 MG TABLET. PO SCH (08:42)
[2020-02-23] MEDS: CELECOXIB 100 MG CAPSULE. PO SCH (08:42)
[2020-02-23] MEDS: MULTIVITAMIN with MINERAL TABLET. PO SCH (08:42)
[2020-02-23] MEDS: AMIODARONE HCL 200 MG TABLET. PO SCH (08:43)
[2020-02-23] MEDS: METOPROLOL SUCC 24HR ER 50 MG TAB.ER.24H. PO SCH ×2 (08:43→19:37)
[2020-02-23] MEDS: FUROSEMIDE 40 MG/4 ML VIAL. IVP SCH (10:09)
--- NOTE | 2020-02-23 10:23 | PDOC ---
PROGRESS NOTES Date of Service: DATE: 02/23/20 TIME: 10:23 Chief Complaint Chief Complaint IMPRESSION Acute respiratory failure due to likely acute CHF COVID pneumonia and acute lung injury treated for about 5-6 weeks in the month of November at and then developed stroke while at the rehabfacility and has been tested negative 5 times since then. acute on chronic diastolic CHF AFIB RVR, UNCONTROLLED AFIB RVR evening 02/21 GLADIS HTN Dyslipidemia Diabetes Obesity class II Recent COVID infection pneumonia in November Recent embolic stroke with residual left-sided hemiparesis Chronic LE lymphedema PLAN ADMIT Appreciate cardiology and pulmonology recommendations TTE when COVID is negative Continue losartan at a low dose. Continue metoprolol. DC Cardizem and HCTZ. Continue with IV Lasix diuresis Continue IV antibiotics appreciate ID recommendations Follow-up blood cultures Lovenox and warfarin for DVT prophylaxis Protonix GI prophylaxis ADA diet Full code Discussed with RN and SW Disposition inpatient Surrogate decision maker is self dpoa discussion, review 10 min 27 min pt exam, chart review, > 50% of time spent with exam, chart review, pt care coordination plan HOME HEALTH when stable History of Present Illness History of Present Illness 79-year-old female with past medical history of CHF, GLADIS, CVA, COVID pneumonia who presents to the ED with complaints of shortness of breath. She was recently treated for COVID and she developed a stroke during her treatment at . She eventually went to rehab afterwards. 02/20/2020 No acute events overnight. Patient is currently being evaluated by pulmonology and cardiology. She will receive IV diuresis today. Patient's chart, labs, images were reviewed and discussed with RN Vitals Vitals Vital Signs Date Time Temp Pulse Resp B/P (MAP) Pulse Ox O2 Delivery O2 Flow Rate FiO2 02/23/20 10:07 118/56 (76) 02/23/20 08:43 77 02/23/20 07:00 98.0 20 96 Nasal Cannula 2.0 98.0 Physical Exam General: Alert, Oriented X3, Cooperative, No acute distress Heart: Other (AFIB; distant heart sounds) Lungs: Clear Abdomen: Normal bowel sounds, Soft, No tenderness, Other (obese) Extremities: No cyanosis, No edema, Other (2+ bilateral LE pitting edema) Skin: No breakdown Labs LABS Laboratory Tests Test 02/22/20 11:53 Glucose (Fingerstick) 116 mg/dL (70-99) Assessment and Plan Assessmemt and Plan Problems Medical Problems: (1) Atrial fibrillation with rapid ventricular response Status: Acute (2) COPD exacerbation Status: Acute (3) Dyspnea Status: Acute (4) Respiratory failure Status: Acute Comment Review of Relevant I have reviewed the following items grace (where applicable) has been applied. Labs Laboratory Tests Test 02/21/20 11:41 02/21/20 16:25 02/21/20 20:39 02/22/20 07:22 Glucose (Fingerstick) 99 mg/dL (70-99) 123 mg/dL (70-99) 154 mg/dL (70-99) 109 mg/dL (70-99) Test 02/22/20 07:40 02/22/20 11:53 Prothrombin Time 13.9 SEC (11.7-14.0) Prothromb Time International Ratio 1.1 (0.8-1.1) Sodium Level 139 mmol/L (136-145) Potassium Level 4.4 mmol/L (3.5-5.1) Chloride Level 104 mmol/L (98-107) Carbon Dioxide Level 27 mmol/L (21-32) Anion Gap 8 (6-14) Blood Urea Nitrogen 29 mg/dL (7-20) Creatinine 1.2 mg/dL (0.6-1.0) Estimated GFR (Cockcroft-Gault) 43.2 Glucose Level 206 mg/dL (70-99) Calcium Level 8.0 mg/dL (8.5-10.1) Magnesium Level 1.8 mg/dL (1.8-2.4) Triglycerides Level 122 mg/dL (0-150) Cholesterol Level 114 mg/dL (0-200) LDL Cholesterol, Calculated 54 mg/dL (0-100) VLDL Cholesterol, Calculated 24 mg/dL (0-40) Non-HDL Cholesterol Calculated 78 mg/dL (0-129) HDL Cholesterol 36 mg/dL (40-60) Cholesterol/HDL Ratio 3.2 Glucose (Fingerstick) 116 mg/dL (70-99) Laboratory Tests Test 02/22/20 11:53 Glucose (Fingerstick) 116 mg/dL (70-99) Medications Current Medications Sodium Chloride 1,000 ml @ 1,000 mls/hr 1X ONCE IV Last administered on 02/19/20at 14:05; Start 02/19/20 at 13:30; Stop 02/19/20 at 14:29; Status DC Diltiazem HCl (Cardizem Iv Push) 20 mg 1X ONCE IVP Last administered on 02/19/20at 14:04; Start 02/19/20 at 14:00; Stop 02/19/20 at 14:01; Status DC Methylprednisolone Sodium Succinate (SOLU-Medrol 125MG VIAL) 125 mg 1X ONCE IV Last administered on 02/19/20at 14:04; Start 02/19/20 at 13:45; Stop 02/19/20 at 13:46; Status DC Albuterol/ Ipratropium (Duoneb) 3 ml 1X ONCE NEB Last administered on 02/19/20at 14:05; Start 02/19/20 at 13:45; Stop 02/19/20 at 13:46; Status DC Diltiazem HCl 125 mg/Sodium Chloride 125 ml @ 5 mls/hr 1X ONCE IV Last administered on 02/19/20at 15:15; Start 02/19/20 at 15:15; Stop 02/20/20 at 16 :14; Status DC Levofloxacin/ Dextrose 150 ml @ 100 mls/hr 1X ONCE IV Last administered on 02/19/20at 17:09; Start 02/19/20 at 16:45; Stop 02/19/20 at 18:14; Status DC Metoprolol Tartrate (Lopressor Vial) 5 mg 1X ONCE IVP Last administered on 02/19/20at 18:30; Start 02/19/20 at 18:15; Stop 02/19/20 at 18:16; Status DC Enoxaparin Sodium (Lovenox Per Pharmacy Treatment Dosing) 1 each PRN DAILY PRN MC SEE COMMENTS; Start 02/19/20 at 22:30 Dronedarone (Multaq) 400 mg 1X ONCE PO Last administered on 02/19/20at 23:18; Start 02/19/20 at 22:45; Stop 02/19/20 at 22:46; Status DC Pantoprazole Sodium (Protonix) 40 mg 1X ONCE PO Last administered on 02/19/20at 23:17; Start 02/19/20 at 22:45; Stop 02/19/20 at 22:46; Status DC Metoprolol Tartrate (Lopressor) 25 mg 1X ONCE PO Last administered on 02/19/20at 23:17; Start 02/19/20 at 22:45; Stop 02/19/20 at 22:46; Status DC Enoxaparin Sodium (Lovenox 100mg Syringe) 90 mg Q12HR SQ Last administered on 02/20/20at 08:00; Start 02/19/20 at 22:45; Stop 02/20/20 at 14:17; Status DC Diltiazem HCl 125 mg/Sodium Chloride 125 ml @ 10 mls/hr CONT PRN IV SEE I/O RECORD Last administered on 02/20/20at 01:05; Start 02/20/20 at 00:30; Stop 02/20/20 at 12:44; Status DC Dronedarone (Multaq) 400 mg BID PO Last administered on 02/20/20at 08:02; Start 02/20/20 at 09:00; Stop 02/20/20 at 12:44; Status DC Lorazepam (Ativan) 1 mg DAILY PO Last administered on 02/23/20at 08:41; Start 02/20/20 at 09:00 Metoprolol Tartrate (Lopressor) 25 mg BID PO Last administered on 02/21/20at 08:33; Start 02/20/20 at 09:00; Stop 02/21/20 at 09:59; Status DC Oxybutynin Chloride (Ditropan) 15 mg DAILY PO Last administered on 02/23/20at 08:41; Start 02/20/20 at 09:00 Celecoxib (CeleBREX) 200 mg DAILY PO Last administered on 02/23/20at 08:42; Start 02/20/20 at 09:00 Duloxetine HCl (Cymbalta) 60 mg HS PO Last administered on 02/22/20at 20:47; Start 02/20/20 at 21:00 Non-Formulary Medication (Losartan/ Hydrochlorothiazide (Losartan-Hctz 100-12.5 Mg Tab)) 1 each DAILY PO ; Start 02/20/20 at 09:00; Status UNV Multivitamins (Thera M Plus) 1 tab DAILY PO Last administered on 02/23/20at 08:42; Start 02/20/20 at 09:00 Pantoprazole Sodium (Protonix) 40 mg BIDAC PO Last administered on 02/23/20at 08:41; Start 02/20/20 at 07:30 Losartan Potassium (Cozaar) 100 mg DAILY PO Last administered on 02/20/20at 08:01; Start 02/20/20 at 09:00; Stop 02/20/20 at 12:44; Status DC Hydrochlorothiazide (Microzide) 12.5 mg DAILY PO Last administered on 02/20/20at 08:01; Start 02/20/20 at 09:00; Stop 02/20/20 at 12:45; Status DC Potassium Chloride (Klor-Con) 40 meq 1X PRN PRN PO SEE COMMENTS Last administered on 02/21/20at 15:37; Start 02/20/20 at 08:30 Potassium Chloride/Water 100 ml @ 100 mls/hr PRN Q1HR PRN IV SEE COMMENTS; Start 02/20/20 at 08:30 Magnesium Sulfate 50 ml @ 25 mls/hr PRN DAILY PRN IV SEE COMMENTS; Start 02/20/20 at 08:30 Potassium Phos/ Sodium Phos (Phos-Nak) 1 pkt PRN BID PRN PO SEE COMMENTS; Start 02/20/20 at 09:00 Potassium Bicarbonate (Potassium Effervescent Tablet) 40 meq PRN Q4HRS PRN PO SEE COMMENTS Last administered on 02/21/20at 13:31; Start 02/20/20 at 08:30 Potassium Chloride/Water 100 ml @ 100 mls/hr PRN Q1HR PRN IV SEE COMMENTS; Start 02/20/20 at 08:30 Furosemide (Lasix) 40 mg 1X ONCE IVP Last administered on 02/20/20at 10:30; Start 02/20/20 at 10:00; Stop 02/20/20 at 10:01; Status DC Info (Anti-Coagulation Monitoring By Pharmacy) 1 each PRN DAILY PRN MC SEE COMMENTS Last administered on 02/21/20at 10:04; Start 02/20/20 at 11:30 Losartan Potassium (Cozaar) 50 mg DAILY PO Last administered on 02/23/20at 08:42; Start 02/21/20 at 09:00 Warfarin Sodium (Coumadin Per Pharmacy) 1 each PRN DAILY PRN MC SEE COMMENTS Last administered on 02/20/20at 15:45; Start 02/20/20 at 12:45; Stop 02/21/20 at 09:58; Status DC Metoprolol Tartrate (Lopressor) 25 mg Q6HRS PO Last administered on 02/21/20at 06:14; Start 02/20/20 at 12:45; Stop 02/21/20 at 13:31; Status DC Amiodarone HCl (Cordarone) 400 mg BID PO Last administered on 02/21/20at 08:33; Start 02/20/20 at 13:00; Stop 02/21/20 at 12:56; Status DC Enoxaparin Sodium (Lovenox 100mg Syringe) 100 mg Q12HR SQ Last administered on 02/23/20at 10:10; Start 02/20/20 at 21:00 Warfarin Sodium (Coumadin) 5 mg 1X WARF ONCE PO ; Start 02/20/20 at 16:00; Stop 02/20/20 at 16:01; Status DC Furosemide (Lasix) 40 mg DAILY IVP Last administered on 02/23/20at 10:09; Start 02/21/20 at 09:00 Metoprolol Tartrate (Lopressor) 25 mg 1X ONCE PO Last administered on 02/21/20at 12:23; Start 02/21/20 at 11:45; Stop 02/21/20 at 11:46; Status DC Amiodarone HCl (Cordarone) 200 mg DAILY PO Last administered on 02/23/20at 08:43; Start 02/22/20 at 14:00 Amiodarone HCl 450 mg/Dextrose 259 ml @ 0 mls/hr CONT PRN IV SEE I/O RECORD Last administered on 02/21/20at 21:21; Start 02/21/20 at 13:00; Stop 02/21/20 at 21:21; Status DC Furosemide (Lasix) 40 mg 1X ONCE IVP Last administered on 02/21/20at 15:30; Start 02/21/20 at 14:00; Stop 02/21/20 at 14:01; Status DC Metoprolol Succinate (Toprol Xl) 50 mg BID PO Last administered on 02/23/20at 08:43; Start 02/21/20 at 21:00 Iodixanol (Visipaque 320) 100 ml STK-MED ONCE .ROUTE ; Start 02/22/20 at 11:55; Stop 02/22/20 at 11:55; Status DC Lidocaine HCl (Xylocaine-Mpf 1% 2ml Vial) 2 ml STK-MED ONCE .ROUTE ; Start 02/22/20 at 11:55; Stop 02/22/20 at 11:55; Status DC Heparin Sodium/ Sodium Chloride 500 ml @ As Directed STK-MED ONCE .ROUTE ; Start 02/22/20 at 11:55; Stop 02/22/20 at 11:56; Status DC Fentanyl Citrate (Fentanyl 2ml Vial) 100 mcg STK-MED ONCE .ROUTE ; Start 02/22/20 at 12:07; Stop 02/22/20 at 12:07; Status DC Midazolam HCl (Versed) 5 mg STK-MED ONCE .ROUTE ; Start 02/22/20 at 12:07; Stop 02/22/20 at 12:07; Status DC Heparin Sodium (Porcine) (Heparin Sodium) 10,000 unit STK-MED ONCE .ROUTE ; Start 02/22/20 at 12:07; Stop 02/22/20 at 12:07; Status DC Verapamil HCl (Verapamil) 5 mg STK-MED ONCE .ROUTE ; Start 02/22/20 at 12:07; Stop 02/22/20 at 12:07; Status DC Nitroglycerin (Nitroglycerin) 200 mcg STK-MED ONCE .ROUTE ; Start 02/22/20 at 12:07; Stop 02/22/20 at 12:07; Status DC Nitroglycerin (Nitroglycerin) 200 mcg 1X ONCE IART Last administered on 02/22/20at 13:54; Start 02/22/20 at 13:30; Stop 02/22/20 at 13:31; Status DC Verapamil HCl (Verapamil) 2.5 mg 1X ONCE IART Last administered on 02/22/20at 13:55; Start 02/22/20 at 13:30; Stop 02/22/20 at 13:31; Status DC Heparin Sodium (Porcine) (Heparin Sodium) 2,500 unit 1X ONCE IART Last administered on 02/22/20at 13:53; Start 02/22/20 at 13:30; Stop 02/22/20 at 13:31; Status DC Heparin Sodium/ Sodium Chloride (HEPARIN for ARTERIAL LINE FLUSH) 1,000 unit 1X ONCE IART Last administered on 02/22/20 13:52; Start 02/22/20 at 13:30; Stop 02/22/20 at 13:31; Status DC Midazolam HCl (Versed) 5 mg 1X ONCE IV Last administered on 02/22/20 13:54; Start 02/22/20 at 13:30; Stop 02/22/20 at 13:31; Status DC Fentanyl Citrate (Fentanyl 2ml Vial) 100 mcg 1X ONCE IV Last administered on 02/22/20 13:54; Start 02/22/20 at 13:30; Stop 02/22/20 at 13:31; Status DC Iodixanol (Visipaque 320) 100 ml 1X ONCE IART Last administered on 02/22/20 13:53; Start 02/22/20 at 13:30; Stop 02/22/20 at 13:31; Status DC Lidocaine HCl (Xylocaine-Mpf 1% 2ml Vial) 2 ml 1X ONCE INJ Last administered on 02/22/20 13:53; Start 02/22/20 at 13:30; Stop 02/22/20 at 13:31; Status DC Info (CONTRAST GIVEN -- Rx MONITORING) 1 each PRN DAILY PRN MC SEE COMMENTS; Start 02/22/20 at 13:30; Stop 02/24/20 at 13:29 Clopidogrel Bisulfate (Plavix) 600 mg 1X ONCE PO Last administered on 02/22/20 13:55; Start 02/22/20 at 13:45; Stop 02/22/20 at 13:46; Status DC Aspirin (Monse Aspirin) 325 mg 1X ONCE PO Last administered on 02/22/20 13: 55; Start 02/22/20 at 13:45; Stop 02/22/20 at 13:46; Status DC Aspirin (Ecotrin) 81 mg DAILYWBKFT PO Last administered on 02/23/20 08:41; Start 02/23/20 at 08:00 Clopidogrel Bisulfate (Plavix) 75 mg DAILYWBKFT PO Last administered on 02/23/20 08:41; Start 02/23/20 at 08:00 Atorvastatin Calcium (Lipitor) 40 mg QHS PO Last administered on 02/22/20at 20:46; Start 02/22/20 at 21:00 Acetaminophen (Tylenol) 650 mg PRN Q6HRS PRN PO MILD PAIN / TEMP > 100.3'F; Start 02/22/20 at 14:15 Nitroglycerin (Nitrostat) 0.4 mg PRN Q5MIN PRN SL CHEST PAIN; Start 02/22/20 at 14:15 Amiodarone HCl (Cordarone) 200 mg 1X ONCE PO Last administered on 02/22/20at 18:33; Start 02/22/20 at 18:15; Stop 02/22/20 at 18:16; Status DC Active Scripts Active Reported Multi Vitamin Daily (Multivitamin) 1 Each Tablet 1 Tab PO DAILY 30 Days Cymbalta (Duloxetine Hcl) 60 Mg Capsule.dr 60 Mg PO HS Eliquis (Apixaban) 5 Mg Tablet 5 Mg PO DAILY Losartan-Hctz 100-12.5 Mg Tab (Losartan/Hydrochlorothiazide) 1 Each Tablet 1 Each PO DAILY Ativan (Lorazepam) 1 Mg Tablet 1 Mg PO DAILY Oxybutynin Chloride 5 Mg Tablet 15 Mg PO DAILY Multaq (Dronedarone Hcl) 400 Mg Tablet 400 Mg PO BID Metoprolol Tartrate 25 Mg Tablet 25 Mg PO BID Celebrex (Celecoxib) 200 Mg Capsule 200 Mg PO DAILY 30 Days Protonix (Pantoprazole Sodium) 20 Mg Tablet.dr 40 Mg PO BID Vitals/I & O Vital Sign - Last 24 Hours 02/22/20 02/22/20 02/22/20 02/22/20 11:02 13:54 13:55 14:06 Temp 97.6 97.6 Pulse 90 122 118 Resp 20 22 21 B/P (MAP) 150/71 (97) 106/78 Pulse Ox 97 96 96 O2 Delivery Nasal Cannula Nasal Cannula Nasal Cannula O2 Flow Rate 4.0 4.0 4.0 02/22/20 02/22/20 02/22/20 02/22/20 14:14 14:31 14:43 14:59 Pulse 126 126 118 127 Resp 20 B/P (MAP) 114/78 (90) 162/94 (116) 132/81 127/68 (87) Pulse Ox 97 O2 Delivery Nasal Cannula O2 Flow Rate 4.0 02/22/20 02/22/20 02/22/20 02/22/20 15:00 15:29 15:59 16:59 Temp 98.6 98.6 Pulse 115 118 136 115 Resp 20 B/P (MAP) 127/68 (87) 131/79 (96) 144/76 (98) 143/64 (90) Pulse Ox 96 O2 Delivery Nasal Cannula O2 Flow Rate 4.0 02/22/20 02/22/20 02/22/20 02/22/20 17:59 18:33 19:10 20:05 Temp 97.8 97.8 Pulse 126 115 105 Resp 20 B/P (MAP) 157/82 (107) 157/82 141/70 (93) Pulse Ox 92 O2 Delivery Nasal Cannula Nasal Cannula O2 Flow Rate 2.0 02/22/20 02/22/20 02/23/20 02/23/20 20:47 22:50 03:05 07:00 Temp 97.9 97.8 98.0 97.9 97.8 98.0 Pulse 76 72 69 74 Resp 20 20 20 B/P (MAP) 120/68 118/58 (78) 134/60 (84) 121/70 (87) Pulse Ox 94 96 96 O2 Delivery Nasal Cannula Nasal Cannula Nasal Cannula O2 Flow Rate 2.0 2.0 2.0 02/23/20 02/23/20 02/23/20 02/23/20 08:42 08:43 08:43 10:07 Pulse 72 77 77 B/P (MAP) 121/70 121/70 121/70 118/56 (76) Intake and Output 02/22/20 02/22/20 02/23/20 15:00 23:00 07:00 Intake Total 340 ml 100 ml 600 ml Output Total 1600 ml 900 ml Balance -1260 ml 100 ml -300 ml Justicifation of Admission Dx: Justifications for Admission: Justification of Admission Dx: Yes CHF: Cardiac Arrhythmias ELINA POON MD Feb 23, 2020 10:23
--- NOTE | 2020-02-23 11:42 | PDOC ---
PULMONARY PROGRESS NOTES DATE: 02/23/20 TIME: 11:37 Subjective Continue to clinically improve Now on 2 liters N/C No SOA, No cough had episode of AFIB RVR yesterday evening S/P cardiac cath with stent to LAD Vitals Vital Signs Date Time Temp Pulse Resp B/P (MAP) Pulse Ox O2 Delivery O2 Flow Rate FiO2 02/23/20 11:00 97.9 128 20 117/72 (87) 94 Nasal Cannula 2.0 97.9 ROS: No Nausea, No Chest Pain, No Abdominal Pain General: Alert, No acute distress Lungs: Clear Abdomen: Soft Neuro Exam: Alert Extremities: Other (t1+edema) Labs Laboratory Tests Test 02/21/20 11:41 02/21/20 16:25 02/21/20 20:39 02/22/20 07:22 Glucose (Fingerstick) 99 mg/dL (70-99) 123 mg/dL (70-99) 154 mg/dL (70-99) 109 mg/dL (70-99) Test 02/22/20 07:40 02/22/20 11:53 Prothrombin Time 13.9 SEC (11.7-14.0) Prothromb Time International Ratio 1.1 (0.8-1.1) Sodium Level 139 mmol/L (136-145) Potassium Level 4.4 mmol/L (3.5-5.1) Chloride Level 104 mmol/L (98-107) Carbon Dioxide Level 27 mmol/L (21-32) Anion Gap 8 (6-14) Blood Urea Nitrogen 29 mg/dL (7-20) Creatinine 1.2 mg/dL (0.6-1.0) Estimated GFR (Cockcroft-Gault) 43.2 Glucose Level 206 mg/dL (70-99) Calcium Level 8.0 mg/dL (8.5-10.1) Magnesium Level 1.8 mg/dL (1.8-2.4) Triglycerides Level 122 mg/dL (0-150) Cholesterol Level 114 mg/dL (0-200) LDL Cholesterol, Calculated 54 mg/dL (0-100) VLDL Cholesterol, Calculated 24 mg/dL (0-40) Non-HDL Cholesterol Calculated 78 mg/dL (0-129) HDL Cholesterol 36 mg/dL (40-60) Cholesterol/HDL Ratio 3.2 Glucose (Fingerstick) 116 mg/dL (70-99) Laboratory Tests Test 02/22/20 11:53 Glucose (Fingerstick) 116 mg/dL (70-99) Medications Active Scripts Medications Dose Route/Sig Max Daily Dose Days Date Category Multi Vitamin Daily (Multivitamin) 1 Each Tablet 1 Tab PO DAILY 30 02/20/20 Reported Cymbalta (Duloxetine Hcl) 60 Mg Capsule.dr 60 Mg PO HS 02/20/20 Reported Eliquis (Apixaban) 5 Mg Tablet 5 Mg PO DAILY 02/20/20 Reported Losartan-Hctz 100-12.5 Mg Tab (Losartan/Hydrochlorothiazide) 1 Each Tablet 1 Each PO DAILY 02/20/20 Reported Ativan (Lorazepam) 1 Mg Tablet 1 Mg PO DAILY 02/20/20 Reported Oxybutynin Chloride 5 Mg Tablet 15 Mg PO DAILY 02/20/20 Reported Multaq (Dronedarone Hcl) 400 Mg Tablet 400 Mg PO BID 02/19/20 Reported Metoprolol Tartrate 25 Mg Tablet 25 Mg PO BID 02/19/20 Reported Celebrex (Celecoxib) 200 Mg Capsule 200 Mg PO DAILY 30 02/19/20 Reported Protonix (Pantoprazole Sodium) 20 Mg Tablet.dr 40 Mg PO BID 02/19/20 Reported Comments CXR 02/22/20 IMPRESSION: * Repeat demonstration of interstitial and alveolar opacities throughout the bilateral lungs which can be seen with edema or infiltrate. Cardiac cath 02/22/2020 Conclusion 1. Severe single-vessel coronary disease, 90% stenosis involving the left anterior descending artery. 2. Successful PCI/stent placement to the left anterior descending artery. Recommendations 1. Aspirin 81 mg daily for 1 month (patient on triple therapy) 2. Plavix 75 mg daily 3. Cardiovascular risk factor modification 4. Optimize treatment for cardiomyopathy and repeat 2D echo in 3 months. Impression . 1. Acute hypoxic respiratory failure, secondary to acute congestive heart failure. Triggered by atrial fibrillation with rapid ventricular response. 2. The patient with COVID pneumonia and acute lung injury treated for about 5-6 weeks in the month of November at and then developed stroke while at the rehab facility and has been tested negative 5 times since then. Now comes in with acute hypoxic respiratory failure, which is likely caused by congestive heart failure. Low clinical suspicion for recurrent COVID infection. repeat test neg 3. Minimal tobacco history. 4. History of atrial fibrillation. 5. Abnormal chest x-ray with diffuse bilateral interstitial infiltrates consistent with congestive heart failure--improved 6. No evidence of deep venous thrombosis in the lower extremity. 7. Cardiomyopathy 8. CAD SP PCI/stent to LAD on 02/22/2020 Plan . 1. Continue present oxygen, currently at 2 liters, attempt to wean slowly 2. diuresis, monitor renal function with diuresis 3. Follow CXR PRN 4. Follow Cardiology recommendations regarding atrial fibrillation., now on po amio, had episode of AFIB RVR 02/22/20 with additional dose of amio now, rate controlled 5. Anticoagulation per Cardiology for AFib. 6. S/P cardiac cath with stent to LAD-- follow cardiology recs 7. PT/OT 8. 6 min walk prior to D/C Discussed with VERONIQUE FULTON MD Feb 23, 2020 11:42
--- NOTE | 2020-02-23 14:08 | PDOC ---
PROGRESS NOTES Date of Service DATE: 02/23/20 TIME: 14:06 Subjective Subjective Patient seen and examined Objective Objective Vital Signs Date Time Temp Pulse Resp B/P (MAP) Pulse Ox O2 Delivery O2 Flow Rate FiO2 02/23/20 11:00 97.9 128 20 117/72 (87) 94 Nasal Cannula 2.0 97.9 Intake and Output 02/23/20 07:00 Intake Total 1040 ml Output Total 2500 ml Balance -1460 ml Intake Oral 1040 ml Output Urine Total 2500 ml # Voids 1 # Bowel Movements 1 Physical Exam Abdomen: Normal bowel sounds Heart: Regular rate General: No acute distress Lungs: Other (Slightly decreased breath sounds) Assessment Assessment Problems Medical Problems: (1) Atrial fibrillation with rapid ventricular response Status: Acute (2) COPD exacerbation Status: Acute (3) Dyspnea Status: Acute (4) Respiratory failure Status: Acute Acute on chronic systolic CHF: Improved. Ejection fraction of 20 to 25% on catheterization yesterday. CAD. Cath yesterday with a 90% LAD lesion successfully stented with a bare- metal stent. Continue present treatment. AFIB RVR: paroxysmal by hx. Has converted to SR GLADIS: CPAP intolerant; uses O2 at home. HTN: controlled HLP: past statin intolerance, lipids are on goal otherwise DM2: per pcp Obesity with debility r/t CVA Recently recovered from COVID-19 PNA in 11/2019: Covid negative Hx of recent embolic stroke with left side hemiparesis: Comment Review of Relevant I have reviewed the following items grace (where applicable) has been applied. Labs Laboratory Tests Test 02/21/20 16:25 02/21/20 20:39 02/22/20 07:22 02/22/20 07:40 Glucose (Fingerstick) 123 mg/dL (70-99) 154 mg/dL (70-99) 109 mg/dL (70-99) Prothrombin Time 13.9 SEC (11.7-14.0) Prothromb Time International Ratio 1.1 (0.8-1.1) Sodium Level 139 mmol/L (136-145) Potassium Level 4.4 mmol/L (3.5-5.1) Chloride Level 104 mmol/L (98-107) Carbon Dioxide Level 27 mmol/L (21-32) Anion Gap 8 (6-14) Blood Urea Nitrogen 29 mg/dL (7-20) Creatinine 1.2 mg/dL (0.6-1.0) Estimated GFR (Cockcroft-Gault) 43.2 Glucose Level 206 mg/dL (70-99) Calcium Level 8.0 mg/dL (8.5-10.1) Magnesium Level 1.8 mg/dL (1.8-2.4) Triglycerides Level 122 mg/dL (0-150) Cholesterol Level 114 mg/dL (0-200) LDL Cholesterol, Calculated 54 mg/dL (0-100) VLDL Cholesterol, Calculated 24 mg/dL (0-40) Non-HDL Cholesterol Calculated 78 mg/dL (0-129) HDL Cholesterol 36 mg/dL (40-60) Cholesterol/HDL Ratio 3.2 Test 02/22/20 11:53 Glucose (Fingerstick) 116 mg/dL (70-99) Medications Current Medications Sodium Chloride 1,000 ml @ 1,000 mls/hr 1X ONCE IV Last administered on 02/19/20at 14:05; Start 02/19/20 at 13:30; Stop 02/19/20 at 14:29; Status DC Diltiazem HCl (Cardizem Iv Push) 20 mg 1X ONCE IVP Last administered on 02/19/20at 14:04; Start 02/19/20 at 14:00; Stop 02/19/20 at 14:01; Status DC Methylprednisolone Sodium Succinate (SOLU-Medrol 125MG VIAL) 125 mg 1X ONCE IV Last administered on 02/19/20at 14:04; Start 02/19/20 at 13:45; Stop 02/19/20 at 13:46; Status DC Albuterol/ Ipratropium (Duoneb) 3 ml 1X ONCE NEB Last administered on 02/19/20at 14:05; Start 02/19/20 at 13:45; Stop 02/19/20 at 13:46; Status DC Diltiazem HCl 125 mg/Sodium Chloride 125 ml @ 5 mls/hr 1X ONCE IV Last administered on 02/19/20at 15:15; Start 02/19/20 at 15:15; Stop 02/20/20 at 16:14; Status DC Levofloxacin/ Dextrose 150 ml @ 100 mls/hr 1X ONCE IV Last administered on 02/19/20at 17:09; Start 02/19/20 at 16:45; Stop 02/19/20 at 18:14; Status DC Metoprolol Tartrate (Lopressor Vial) 5 mg 1X ONCE IVP Last administered on 02/19/20at 18:30; Start 02/19/20 at 18:15; Stop 02/19/20 at 18:16; Status DC Enoxaparin Sodium (Lovenox Per Pharmacy Treatment Dosing) 1 each PRN DAILY PRN MC SEE COMMENTS; Start 02/19/20 at 22:30 Dronedarone (Multaq) 400 mg 1X ONCE PO Last administered on 02/19/20at 23:18; Start 02/19/20 at 22:45; Stop 02/19/20 at 22:46; Status DC Pantoprazole Sodium (Protonix) 40 mg 1X ONCE PO Last administered on 02/19/20at 23:17; Start 02/19/20 at 22:45; Stop 02/19/20 at 22:46; Status DC Metoprolol Tartrate (Lopressor) 25 mg 1X ONCE PO Last administered on 02/19/20at 23:17; Start 02/19/20 at 22:45; Stop 02/19/20 at 22:46; Status DC Enoxaparin Sodium (Lovenox 100mg Syringe) 90 mg Q12HR SQ Last administered on 02/20/20at 08:00; Start 02/19/20 at 22:45; Stop 02/20/20 at 14:17; Status DC Diltiazem HCl 125 mg/Sodium Chloride 125 ml @ 10 mls/hr CONT PRN IV SEE I/O RECORD Last administered on 02/20/20at 01:05; Start 02/20/20 at 00:30; Stop 02/20/20 at 12:44; Status DC Dronedarone (Multaq) 400 mg BID PO Last administered on 02/20/20at 08:02; Start 02/20/20 at 09:00; Stop 02/20/20 at 12:44; Status DC Lorazepam (Ativan) 1 mg DAILY PO Last administered on 02/23/20at 08:41; Start 02/20/20 at 09:00 Metoprolol Tartrate (Lopressor) 25 mg BID PO Last administered on 02/21/20at 08:33; Start 02/20/20 at 09:00; Stop 02/21/20 at 09:59; Status DC Oxybutynin Chloride (Ditropan) 15 mg DAILY PO Last administered on 02/23/20 08:41; Start 02/20/20 at 09:00 Celecoxib (CeleBREX) 200 mg DAILY PO Last administered on 02/23/20at 08:42; Start 02/20/20 at 09:00 Duloxetine HCl (Cymbalta) 60 mg HS PO Last administered on 02/22/20at 20:47; Start 02/20/20 at 21:00 Non-Formulary Medication (Losartan/ Hydrochlorothiazide (Losartan-Hctz 100-12.5 Mg Tab)) 1 each DAILY PO ; Start 02/20/20 at 09:00; Status UNV Multivitamins (Thera M Plus) 1 tab DAILY PO Last administered on 02/23/20at 08:42; Start 02/20/20 at 09:00 Pantoprazole Sodium (Protonix) 40 mg BIDAC PO Last administered on 02/23/20at 08:41; Start 02/20/20 at 07:30 Losartan Potassium (Cozaar) 100 mg DAILY PO Last administered on 02/20/20at 08:01; Start 02/20/20 at 09:00; Stop 02/20/20 at 12:44; Status DC Hydrochlorothiazide (Microzide) 12.5 mg DAILY PO Last administered on 02/20/20at 08:01; Start 02/20/20 at 09:00; Stop 02/20/20 at 12:45; Status DC Potassium Chloride (Klor-Con) 40 meq 1X PRN PRN PO SEE COMMENTS Last administered on 02/21/20at 15:37; Start 02/20/20 at 08:30 Potassium Chloride/Water 100 ml @ 100 mls/hr PRN Q1HR PRN IV SEE COMMENTS; Start 02/20/20 at 08:30 Magnesium Sulfate 50 ml @ 25 mls/hr PRN DAILY PRN IV SEE COMMENTS; Start 02/19 at 08:30 Potassium Phos/ Sodium Phos (Phos-Nak) 1 pkt PRN BID PRN PO SEE COMMENTS; Start 02/20/20 at 09:00 Potassium Bicarbonate (Potassium Effervescent Tablet) 40 meq PRN Q4HRS PRN PO SEE COMMENTS Last administered on 02/21/20at 13:31; Start 02/20/20 at 08:30 Potassium Chloride/Water 100 ml @ 100 mls/hr PRN Q1HR PRN IV SEE COMMENTS; Start 02/20/20 at 08:30 Furosemide (Lasix) 40 mg 1X ONCE IVP Last administered on 02/20/20at 10:30; Start 02/20/20 at 10:00; Stop 02/20/20 at 10:01; Status DC Info (Anti-Coagulation Monitoring By Pharmacy) 1 each PRN DAILY PRN MC SEE COMMENTS Last administered on 02/21/20at 10:04; Start 02/20/20 at 11:30 Losartan Potassium (Cozaar) 50 mg DAILY PO Last administered on 02/23/20at 08:42; Start 02/21/20 at 09:00 Warfarin Sodium (Coumadin Per Pharmacy) 1 each PRN DAILY PRN MC SEE COMMENTS Last administered on 02/20/20at 15:45; Start 02/20/20 at 12:45; Stop 02/21/20 at 09:58; Status DC Metoprolol Tartrate (Lopressor) 25 mg Q6HRS PO Last administered on 02/21/20at 06:14; Start 02/20/20 at 12:45; Stop 02/21/20 at 13:31; Status DC Amiodarone HCl (Cordarone) 400 mg BID PO Last administered on 02/21/20at 08:33; Start 02/20/20 at 13:00; Stop 02/21/20 at 12:56; Status DC Enoxaparin Sodium (Lovenox 100mg Syringe) 100 mg Q12HR SQ Last administered on 02/23/20at 10:10; Start 02/20/20 at 21:00 Warfarin Sodium (Coumadin) 5 mg 1X WARF ONCE PO ; Start 02/20/20 at 16:00; Stop 02/20/20 at 16:01; Status DC Furosemide (Lasix) 40 mg DAILY IVP Last administered on 02/23/20at 10:09; Start 02/21/20 at 09:00 Metoprolol Tartrate (Lopressor) 25 mg 1X ONCE PO Last administered on 02/21/20at 12:23; Start 02/21/20 at 11:45; Stop 02/21/20 at 11:46; Status DC Amiodarone HCl (Cordarone) 200 mg DAILY PO Last administered on 8/29/20at 08:43; Start 02/22/20 at 14:00 Amiodarone HCl 450 mg/Dextrose 259 ml @ 0 mls/hr CONT PRN IV SEE I/O RECORD Last administered on 02/21/20at 21:21; Start 02/21/20 at 13:00; Stop 02/21/20 at 21:21; Status DC Furosemide (Lasix) 40 mg 1X ONCE IVP Last administered on 02/21/20at 15:30; Start 02/21/20 at 14:00; Stop 02/21/20 at 14:01; Status DC Metoprolol Succinate (Toprol Xl) 50 mg BID PO Last administered on 02/23/20at 08:43; Start 02/21/20 at 21:00 Iodixanol (Visipaque 320) 100 ml STK-MED ONCE .ROUTE ; Start 02/22/20 at 11:55; Stop 02/22/20 at 11:55; Status DC Lidocaine HCl (Xylocaine-Mpf 1% 2ml Vial) 2 ml STK-MED ONCE .ROUTE ; Start 02/22/20 at 11:55; Stop 02/22/20 at 11:55; Status DC Heparin Sodium/ Sodium Chloride 500 ml @ As Directed STK-MED ONCE .ROUTE ; Start 02/22/20 at 11:55; Stop 02/22/20 at 11:56; Status DC Fentanyl Citrate (Fentanyl 2ml Vial) 100 mcg STK-MED ONCE .ROUTE ; Start 02/22/20 at 12:07; Stop 02/22/20 at 12:07; Status DC Midazolam HCl (Versed) 5 mg STK-MED ONCE .ROUTE ; Start 02/22/20 at 12:07; Stop 02/22/20 at 12:07; Status DC Heparin Sodium (Porcine) (Heparin Sodium) 10,000 unit STK-MED ONCE .ROUTE ; Start 02/22/20 at 12:07; Stop 02/22/20 at 12:07; Status DC Verapamil HCl (Verapamil) 5 mg STK-MED ONCE .ROUTE ; Start 02/22/20 at 12:07; Stop 02/22/20 at 12:07; Status DC Nitroglycerin (Nitroglycerin) 200 mcg STK-MED ONCE .ROUTE ; Start 02/22/20 at 12:07; Stop 02/22/20 at 12:07; Status DC Nitroglycerin (Nitroglycerin) 200 mcg 1X ONCE IART Last administered on 02/22/20at 13:54; Start 02/22/20 at 13:30; Stop 02/22/20 at 13:31; Status DC Verapamil HCl (Verapamil) 2.5 mg 1X ONCE IART Last administered on 02/22/20at 13:55; Start 02/22/20 at 13:30; Stop 02/22/20 at 13:31; Status DC Heparin Sodium (Porcine) (Heparin Sodium) 2,500 unit 1X ONCE IART Last adm inistered on 02/22/20at 13:53; Start 02/22/20 at 13:30; Stop 02/22/20 at 13:31; Status DC Heparin Sodium/ Sodium Chloride (HEPARIN for ARTERIAL LINE FLUSH) 1,000 unit 1X ONCE IART Last administered on 02/22/20 13:52; Start 02/22/20 at 13:30; Stop 02/22/20 at 13:31; Status DC Midazolam HCl (Versed) 5 mg 1X ONCE IV Last administered on 02/22/20at 13:54; Start 02/22/20 at 13:30; Stop 02/22/20 at 13:31; Status DC Fentanyl Citrate (Fentanyl 2ml Vial) 100 mcg 1X ONCE IV Last administered on 02/22/20at 13:54; Start 02/22/20 at 13:30; Stop 02/22/20 at 13:31; Status DC Iodixanol (Visipaque 320) 100 ml 1X ONCE IART Last administered on 02/22/20at 13:53; Start 02/22/20 at 13:30; Stop 02/22/20 at 13:31; Status DC Lidocaine HCl (Xylocaine-Mpf 1% 2ml Vial) 2 ml 1X ONCE INJ Last administered on 02/22/20at 13:53; Start 02/22/20 at 13:30; Stop 02/22/20 at 13:31; Status DC Info (CONTRAST GIVEN -- Rx MONITORING) 1 each PRN DAILY PRN MC SEE COMMENTS; Start 02/22/20 at 13:30; Stop 02/24/20 at 13:29 Clopidogrel Bisulfate (Plavix) 600 mg 1X ONCE PO Last administered on 02/22/20at 13:55; Start 02/22/20 at 13:45; Stop 02/22/20 at 13:46; Status DC Aspirin (Monse Aspirin) 325 mg 1X ONCE PO Last administered on 02/22/20at 13:55; Start 02/22/20 at 13:45; Stop 02/22/20 at 13:46; Status DC Aspirin (Ecotrin) 81 mg DAILYWBKFT PO Last administered on 02/23/20at 08:41; Start 02/23/20 at 08:00 Clopidogrel Bisulfate (Plavix) 75 mg DAILYWBKFT PO Last administered on 02/23/20at 08:41; Start 02/23/20 at 08:00 Atorvastatin Calcium (Lipitor) 40 mg QHS PO Last administered on 02/22/20at 20:46; Start 02/22/20 at 21:00 Acetaminophen (Tylenol) 650 mg PRN Q6HRS PRN PO MILD PAIN / TEMP > 100.3'F; Start 02/22/20 at 14:15 Nitroglycerin (Nitrostat) 0.4 mg PRN Q5MIN PRN SL CHEST PAIN; Start 02/22/20 at 14:15 Amiodarone HCl (Cordarone) 200 mg 1X ONCE PO Last administered on 02/22/20at 18:33; Start 02/22/20 at 18:15; Stop 02/22/20 at 18:16; Status DC Active Scripts Active Reported Multi Vitamin Daily (Multivitamin) 1 Each Tablet 1 Tab PO DAILY 30 Days Cymbalta (Duloxetine Hcl) 60 Mg Capsule.dr 60 Mg PO HS Eliquis (Apixaban) 5 Mg Tablet 5 Mg PO DAILY Losartan-Hctz 100-12.5 Mg Tab (Losartan/Hydrochlorothiazide) 1 Each Tablet 1 Each PO DAILY Ativan (Lorazepam) 1 Mg Tablet 1 Mg PO DAILY Oxybutynin Chloride 5 Mg Tablet 15 Mg PO DAILY Multaq (Dronedarone Hcl) 400 Mg Tablet 400 Mg PO BID Metoprolol Tartrate 25 Mg Tablet 25 Mg PO BID Celebrex (Celecoxib) 200 Mg Capsule 200 Mg PO DAILY 30 Days Protonix (Pantoprazole Sodium) 20 Mg Tablet.dr 40 Mg PO BID Vitals/I & O Vital Sign - Last 24 Hours 02/22/20 02/22/20 02/22/20 02/22/20 14:14 14:31 14:43 14:59 Pulse 126 126 118 127 Resp 20 B/P (MAP) 114/78 (90) 162/94 (116) 132/81 127/68 (87) Pulse Ox 97 O2 Delivery Nasal Cannula O2 Flow Rate 4.0 02/22/20 02/22/20 02/22/20 02/22/20 15:00 15:29 15:59 16:59 Temp 98.6 98.6 Pulse 115 118 136 115 Resp 20 B/P (MAP) 127/68 (87) 131/79 (96) 144/76 (98) 143/64 (90) Pulse Ox 96 O2 Delivery Nasal Cannula O2 Flow Rate 4.0 02/22/20 02/22/20 02/22/20 02/22/20 17:59 18:33 19:10 20:05 Temp 97.8 97.8 Pulse 126 115 105 Resp 20 B/P (MAP) 157/82 (107) 157/82 141/70 (93) Pulse Ox 92 O2 Delivery Nasal Cannula Nasal Cannula O2 Flow Rate 2.0 02/22/20 02/22/20 02/23/20 02/23/20 20:47 22:50 03:05 07:00 Temp 97.9 97.8 98.0 97.9 97.8 98.0 Pulse 76 72 69 74 Resp 20 20 20 B/P (MAP) 120/68 118/58 (78) 134/60 (84) 121/70 (87) Pulse Ox 94 96 96 O2 Delivery Nasal Cannula Nasal Cannula Nasal Cannula O2 Flow Rate 2.0 2.0 2.0 02/23/20 02/23/20 02/23/20 02/23/20 08:00 08:42 08:43 08:43 Pulse 72 77 77 B/P (MAP) 121/70 121/70 121/70 O2 Delivery Nasal Cannula O2 Flow Rate 2.0 02/23/20 02/23/20 10:07 11:00 Temp 97.9 97.9 Pulse 128 Resp 20 B/P (MAP) 118/56 (76) 117/72 (87) Pulse Ox 94 O2 Delivery Nasal Cannula O2 Flow Rate 2.0 Intake and Output 02/22/20 02/22/20 02/23/20 15:00 23:00 07:00 Intake Total 340 ml 100 ml 600 ml Output Total 1600 ml 900 ml Balance -1260 ml 100 ml -300 ml Justifications for Admission Other Justification ROGELIO ESTRADA MD Feb 23, 2020 14:08
[2020-02-23] MEDS ORDERED: DIGOXIN IV 500 MCG/2 ML AMPUL. IV ONE ×2 (15:00→18:15)
--- NOTE | 2020-02-23 19:45 | NUR ---
Spoke with Dr. Eldridge two times today regarding patient's elevated heart rate. Patient's HR in 110s-150s. Orders received. Will continue to monitor.
[2020-02-23] MEDS: ATORVASTATIN CALCIUM 20 MG TABLET PO SCH (21:32)
[2020-02-23] MEDS: DULoxetine HCL 30 MG CAPSULE.DR PO SCH (21:33)
[2020-02-24 03:52] VITALS: BP 145/79
--- NOTE | 2020-02-24 05:06 | NUR ---
Patient has rested quietly, refuses turns offered. Weight shifted in bed as Patient would allow. Heels floated. Call light remains in reach.
[2020-02-24 05:40] LABS: BASO # 0.1 x10^3/uL (0.0-0.2); BASO % 1 % (0-3); EOS # 0.5 x10^3/uL (0.0-0.7); EOS % 5 % (0-3); HEMATOCRIT 32.9 % (36.0-47.0); HEMOGLOBIN 10.9 g/dL (12.0-15.5); LYMPH % 20 % (24-48); MEAN CORPUSCULAR HEMOGLOBIN 30 pg (25-35); MEAN CORPUSCULAR HGB CONC 33 g/dL (31-37); MEAN CORPUSCULAR VOLUME 91 fL (79-100); MONO # 0.6 x10^3/uL (0.0-1.1); MONO % 7 % (0-9); NEUT # 6.8 x10^3/uL (1.8-7.7); NEUT % 68 % (31-73); PLATELET COUNT 277 x10^3/uL (140-400); RED BLOOD COUNT 3.63 x10^6/uL (3.50-5.40)
[2020-02-24 05:42] LABS: ALBUMIN 2.1 g/dL (3.4-5.0); ALBUMIN/GLOBULIN RATIO 0.6 (1.0-1.7); CALCIUM 7.8 mg/dL (8.5-10.1); GFR 53.3; POTASSIUM 3.4 mmol/L (3.5-5.1); TOTAL BILIRUBIN 0.4 mg/dL (0.2-1.0); TOTAL PROTEIN 5.5 g/dL (6.4-8.2)
[2020-02-24 05:49] LABS: PROTHROMBIN TIME PATIENT 14.3 SEC (11.7-14.0)
[2020-02-24 07:00] VITALS: BP 141/84
[2020-02-24] MEDS: OXYBUTYNIN CHLORIDE 5 MG TABLET PO SCH (08:49)
[2020-02-24] MEDS: AMIODARONE HCL 200 MG TABLET. PO SCH (08:50)
[2020-02-24] MEDS: LOSARTAN POTASSIUM 50 MG TABLET. PO SCH (08:50)
[2020-02-24] MEDS: METOPROLOL SUCC 24HR ER 50 MG TAB.ER.24H. PO SCH ×2 (08:50→21:01)
[2020-02-24] MEDS: CELECOXIB 100 MG CAPSULE. PO SCH (08:51)
[2020-02-24] MEDS: CLOPIDOGREL BISULFATE 75 MG TABLET PO SCH (08:51)
[2020-02-24] MEDS: ASPIRIN ENTERIC COATED 81 MG TABLET.DR. PO SCH (08:51)
[2020-02-24] MEDS: PANTOPRAZOLE 40 MG TABLET.DR. PO SCH ×2 (08:51→17:29)
[2020-02-24] MEDS: MULTIVITAMIN with MINERAL TABLET. PO SCH (08:51)
[2020-02-24 11:00] VITALS: BP 137/74
[2020-02-24] MEDS: FUROSEMIDE 40 MG/4 ML VIAL. IVP SCH (11:11)
--- NOTE | 2020-02-24 11:32 | PDOC ---
PROGRESS NOTES Date of Service: DATE: 02/24/20 TIME: 11:32 Chief Complaint Chief Complaint IMPRESSION Acute respiratory failure due to likely acute CHF COVID pneumonia and acute lung injury treated for about 5-6 weeks in the month of November at and then developed stroke while at the rehabfacility and has been tested negative 5 times since then. acute on chronic diastolic CHF AFIB RVR, UNCONTROLLED AFIB RVR evening 02/21 GLADIS HTN Dyslipidemia Diabetes Obesity class II Recent COVID infection pneumonia in November Recent embolic stroke with residual left-sided hemiparesis Chronic LE lymphedema HYPOKALEMIA PLAN ADMIT Appreciate cardiology and pulmonology recommendations TTE when COVID is negative Continue losartan at a low dose. Continue metoprolol. DC Cardizem and HCTZ. Continue with IV Lasix diuresis Continue IV antibiotics appreciate ID recommendations Follow-up blood cultures Lovenox and warfarin for DVT prophylaxis Protonix GI prophylaxis ADA diet Full code Discussed with RN and SW Disposition inpatient Surrogate decision maker is self dpoa discussion, review 10 min 27 min pt exam, chart review, > 50% of time spent with exam, chart review, pt care coordination plan HOME HEALTH when stable History of Present Illness History of Present Illness 79-year-old female with past medical history of CHF, GLADIS, CVA, COVID pneumonia who presents to the ED with complaints of shortness of breath. She was recently treated for COVID and she developed a stroke during her treatment at . She eventually went to rehab afterwards. No acute events overnight. Patient is currently being evaluated by pulmonology and cardiology. Patient's chart, labs, images were reviewed and discussed with RN Vitals Vitals Vital Signs Date Time Temp Pulse Resp B/P (MAP) Pulse Ox O2 Delivery O2 Flow Rate FiO2 02/24/20 08:50 145 141/84 02/24/20 08:00 Nasal Cannula 2.0 02/24/20 07:00 98.0 16 97 98.0 Physical Exam General: Cooperative, No acute distress Heart: Regular rate Lungs: Clear Abdomen: Normal bowel sounds, Soft, No tenderness, Other (obese) Extremities: No clubbing, No cyanosis, No edema, Other (2+ bilateral LE pitting edema) Skin: No breakdown Labs LABS Laboratory Tests Test 02/23/20 17:30 02/24/20 04:30 Prothrombin Time 14.0 SEC (11.7-14.0) 14.3 SEC (11.7-14.0) Prothromb Time International Ratio 1.1 (0.8-1.1) 1.2 (0.8-1.1) White Blood Count 10.0 x10^3/uL (4.0-11.0) Red Blood Count 3.63 x10^6/uL (3.50-5.40) Hemoglobin 10.9 g/dL (12.0-15.5) Hematocrit 32.9 % (36.0-47.0) Mean Corpuscular Volume 91 fL (79-100) Mean Corpuscular Hemoglobin 30 pg (25-35) Mean Corpuscular Hemoglobin Concent 33 g/dL (31-37) Red Cell Distribution Width 17.0 % (11.5-14.5) Platelet Count 277 x10^3/uL (140-400) Neutrophils (%) (Auto) 68 % (31-73) Lymphocytes (%) (Auto) 20 % (24-48) Monocytes (%) (Auto) 7 % (0-9) Eosinophils (%) (Auto) 5 % (0-3) Basophils (%) (Auto) 1 % (0-3) Neutrophils # (Auto) 6.8 x10^3/uL (1.8-7.7) Lymphocytes # (Auto) 2.0 x10^3/uL (1.0-4.8) Monocytes # (Auto) 0.6 x10^3/uL (0.0-1.1) Eosinophils # (Auto) 0.5 x10^3/uL (0.0-0.7) Basophils # (Auto) 0.1 x10^3/uL (0.0-0.2) Sodium Level 142 mmol/L (136-145) Potassium Level 3.4 mmol/L (3.5-5.1) Chloride Level 105 mmol/L (98-107) Carbon Dioxide Level 31 mmol/L (21-32) Anion Gap 6 (6-14) Blood Urea Nitrogen 15 mg/dL (7-20) Creatinine 1.0 mg/dL (0.6-1.0) Estimated GFR (Cockcroft-Gault) 53.3 BUN/Creatinine Ratio 15 (6-20) Glucose Level 111 mg/dL (70-99) Calcium Level 7.8 mg/dL (8.5-10.1) Total Bilirubin 0.4 mg/dL (0.2-1.0) Aspartate Amino Transf (AST/SGOT) 10 U/L (15-37) Alanine Aminotransferase (ALT/SGPT) 7 U/L (14-59) Alkaline Phosphatase 53 U/L (46-116) Total Protein 5.5 g/dL (6.4-8.2) Albumin 2.1 g/dL (3.4-5.0) Albumin/Globulin Ratio 0.6 (1.0-1.7) Assessment and Plan Assessmemt and Plan Problems Medical Problems: (1) Atrial fibrillation with rapid ventricular response Status: Acute (2) COPD exacerbation Status: Acute (3) Dyspnea Status: Acute (4) Respiratory failure Status: Acute Comment Review of Relevant I have reviewed the following items grace (where applicable) has been applied. Labs Laboratory Tests Test 02/22/20 11:53 02/23/20 17:30 02/24/20 04:30 Glucose (Fingerstick) 116 mg/dL (70-99) Prothrombin Time 14.0 SEC (11.7-14.0) 14.3 SEC (11.7-14.0) Prothromb Time International Ratio 1.1 (0.8-1.1) 1.2 (0.8-1.1) White Blood Count 10.0 x10^3/uL (4.0-11.0) Red Blood Count 3.63 x10^6/uL (3.50-5.40) Hemoglobin 10.9 g/dL (12.0-15.5) Hematocrit 32.9 % (36.0-47.0) Mean Corpuscular Volume 91 fL (79-100) Mean Corpuscular Hemoglobin 30 pg (25-35) Mean Corpuscular Hemoglobin Concent 33 g/dL (31-37) Red Cell Distribution Width 17.0 % (11.5-14.5) Platelet Count 277 x10^3/uL (140-400) Neutrophils (%) (Auto) 68 % (31-73) Lymphocytes (%) (Auto) 20 % (24-48) Monocytes (%) (Auto) 7 % (0-9) Eosinophils (%) (Auto) 5 % (0-3) Basophils (%) (Auto) 1 % (0-3) Neutrophils # (Auto) 6.8 x10^3/uL (1.8-7.7) Lymphocytes # (Auto) 2.0 x10^3/uL (1.0-4.8) Monocytes # (Auto) 0.6 x10^3/uL (0.0-1.1) Eosinophils # (Auto) 0.5 x10^3/uL (0.0-0.7) Basophils # (Auto) 0.1 x10^3/uL (0.0-0.2) Sodium Level 142 mmol/L (136-145) Potassium Level 3.4 mmol/L (3.5-5.1) Chloride Level 105 mmol/L (98-107) Carbon Dioxide Level 31 mmol/L (21-32) Anion Gap 6 (6-14) Blood Urea Nitrogen 15 mg/dL (7-20) Creatinine 1.0 mg/dL (0.6-1.0) Estimated GFR (Cockcroft-Gault) 53.3 BUN/Creatinine Ratio 15 (6-20) Glucose Level 111 mg/dL (70-99) Calcium Level 7.8 mg/dL (8.5-10.1) Total Bilirubin 0.4 mg/dL (0.2-1.0) Aspartate Amino Transf (AST/SGOT) 10 U/L (15-37) Alanine Aminotransferase (ALT/SGPT) 7 U/L (14-59) Alkaline Phosphatase 53 U/L (46-116) Total Protein 5.5 g/dL (6.4-8.2) Albumin 2.1 g/dL (3.4-5.0) Albumin/Globulin Ratio 0.6 (1.0-1.7) Laboratory Tests Test 02/23/20 17:30 02/24/20 04:30 Prothrombin Time 14.0 SEC (11.7-14.0) 14.3 SEC (11.7-14.0) Prothromb Time International Ratio 1.1 (0.8-1.1) 1.2 (0.8-1.1) White Blood Count 10.0 x10^3/uL (4.0-11.0) Red Blood Count 3.63 x10^6/uL (3.50-5.40) Hemoglobin 10.9 g/dL (12.0-15.5) Hematocrit 32.9 % (36.0-47.0) Mean Corpuscular Volume 91 fL (79-100) Mean Corpuscular Hemoglobin 30 pg (25-35) Mean Corpuscular Hemoglobin Concent 33 g/dL (31-37) Red Cell Distribution Width 17.0 % (11.5-14.5) Platelet Count 277 x10^3/uL (140-400) Neutrophils (%) (Auto) 68 % (31-73) Lymphocytes (%) (Auto) 20 % (24-48) Monocytes (%) (Auto) 7 % (0-9) Eosinophils (%) (Auto) 5 % (0-3) Basophils (%) (Auto) 1 % (0-3) Neutrophils # (Auto) 6.8 x10^3/uL (1.8-7.7) Lymphocytes # (Auto) 2.0 x10^3/uL (1.0-4.8) Monocytes # (Auto) 0.6 x10^3/uL (0.0-1.1) Eosinophils # (Auto) 0.5 x10^3/uL (0.0-0.7) Basophils # (Auto) 0.1 x10^3/uL (0.0-0.2) Sodium Level 142 mmol/L (136-145) Potassium Level 3.4 mmol/L (3.5-5.1) Chloride Level 105 mmol/L (98-107) Carbon Dioxide Level 31 mmol/L (21-32) Anion Gap 6 (6-14) Blood Urea Nitrogen 15 mg/dL (7-20) Creatinine 1.0 mg/dL (0.6-1.0) Estimated GFR (Cockcroft-Gault) 53.3 BUN/Creatinine Ratio 15 (6-20) Glucose Level 111 mg/dL (70-99) Calcium Level 7.8 mg/dL (8.5-10.1) Total Bilirubin 0.4 mg/dL (0.2-1.0) Aspartate Amino Transf (AST/SGOT) 10 U/L (15-37) Alanine Aminotransferase (ALT/SGPT) 7 U/L (14-59) Alkaline Phosphatase 53 U/L (46-116) Total Protein 5.5 g/dL (6.4-8.2) Albumin 2.1 g/dL (3.4-5.0) Albumin/Globulin Ratio 0.6 (1.0-1.7) Medications Current Medications Sodium Chloride 1,000 ml @ 1,000 mls/hr 1X ONCE IV Last administered on 02/19/20at 14:05; Start 02/19/20 at 13:30; Stop 02/19/20 at 14:29; Status DC Diltiazem HCl (Cardizem Iv Push) 20 mg 1X ONCE IVP Last administered on 02/19/20at 14:04; Start 02/19/20 at 14:00; Stop 02/19/20 at 14:01; Status DC Methylprednisolone Sodium Succinate (SOLU-Medrol 125MG VIAL) 125 mg 1X ONCE IV Last administered on 02/19/20at 14:04; Start 02/19/20 at 13:45; Stop 02/19/20 at 13:46; Status DC Albuterol/ Ipratropium (Duoneb) 3 ml 1X ONCE NEB Last administered on 02/19/20at 14:05; Start 02/19/20 at 13:45; Stop 02/19/20 at 13:46; Status DC Diltiazem HCl 125 mg/Sodium Chloride 125 ml @ 5 mls/hr 1X ONCE IV Last administered on 02/19/20at 15:15; Start 02/19/20 at 15:15; Stop 02/20/20 at 16:14; Status DC Levofloxacin/ Dextrose 150 ml @ 100 mls/hr 1X ONCE IV Last administered on 02/19/20at 17:09; Start 02/19/20 at 16:45; Stop 02/19/20 at 18:14; Status DC Metoprolol Tartrate (Lopressor Vial) 5 mg 1X ONCE IVP Last administered on at 18:30; Start 02/19/20 at 18:15; Stop 02/19/20 at 18:16; Status DC Enoxaparin Sodium (Lovenox Per Pharmacy Treatment Dosing) 1 each PRN DAILY PRN MC SEE COMMENTS; Start 02/19/20 at 22:30 Dronedarone (Multaq) 400 mg 1X ONCE PO Last administered on 02/19/20at 23:18; Start 02/19/20 at 22:45; Stop 02/19/20 at 22:46; Status DC Pantoprazole Sodium (Protonix) 40 mg 1X ONCE PO Last administered on 02/19/20at 23:17; Start 02/19/20 at 22:45; Stop 02/19/20 at 22:46; Status DC Metoprolol Tartrate (Lopressor) 25 mg 1X ONCE PO Last administered on 02/19/20at 23:17; Start 02/19/20 at 22:45; Stop 02/19/20 at 22:46; Status DC Enoxaparin Sodium (Lovenox 100mg Syringe) 90 mg Q12HR SQ Last administered on 02/20/20at 08:00; Start 02/19/20 at 22:45; Stop 02/20/20 at 14:17; Status DC Diltiazem HCl 125 mg/Sodium Chloride 125 ml @ 10 mls/hr CONT PRN IV SEE I/O RECORD Last administered on 02/20/20at 01:05; Start 02/20/20 at 00:30; Stop 02/20/20 at 12:44; Status DC Dronedarone (Multaq) 400 mg BID PO Last administered on 02/20/20at 08:02; Start 02/20/20 at 09:00; Stop 02/20/20 at 12:44; Status DC Lorazepam (Ativan) 1 mg DAILY PO Last administered on 02/24/20at 08:51; Start 02/20/20 at 09:00 Metoprolol Tartrate (Lopressor) 25 mg BID PO Last administered on 02/21/20at 0 8:33; Start 02/20/20 at 09:00; Stop 02/21/20 at 09:59; Status DC Oxybutynin Chloride (Ditropan) 15 mg DAILY PO Last administered on 02/24/20at 08:49; Start 02/20/20 at 09:00 Celecoxib (CeleBREX) 200 mg DAILY PO Last administered on 02/24/20at 08:51; Start 02/20/20 at 09:00 Duloxetine HCl (Cymbalta) 60 mg HS PO Last administered on 02/23/20at 21:33; Start 02/20/20 at 21:00 Non-Formulary Medication (Losartan/ Hydrochlorothiazide (Losartan-Hctz 100-12.5 Mg Tab)) 1 each DAILY PO ; Start 02/20/20 at 09:00; Status UNV Multivitamins (Thera M Plus) 1 tab DAILY PO Last administered on 02/24/20at 08:51; Start 02/20/20 at 09:00 Pantoprazole Sodium (Protonix) 40 mg BIDAC PO Last administered on 02/24/20at 08:51; Start 02/20/20 at 07:30 Losartan Potassium (Cozaar) 100 mg DAILY PO Last administered on 02/20/20at 08:01; Start 02/20/20 at 09:00; Stop 02/20/20 at 12:44; Status DC Hydrochlorothiazide (Microzide) 12.5 mg DAILY PO Last administered on 02/20/20at 08:01; Start 02/20/20 at 09:00; Stop 02/20/20 at 12:45; Status DC Potassium Chloride (Klor-Con) 40 meq 1X PRN PRN PO SEE COMMENTS Last administered on 02/21/20at 15:37; Start 02/20/20 at 08:30 Potassium Chloride/Water 100 ml @ 100 mls/hr PRN Q1HR PRN IV SEE COMMENTS; Start 02/20/20 at 08:30 Magnesium Sulfate 50 ml @ 25 mls/hr PRN DAILY PRN IV SEE COMMENTS; Start 02/20/20 at 08:30 Potassium Phos/ Sodium Phos (Phos-Nak) 1 pkt PRN BID PRN PO SEE COMMENTS; Start 02/20/20 at 09:00 Potassium Bicarbonate (Potassium Effervescent Tablet) 40 meq PRN Q4HRS PRN PO SEE COMMENTS Last administered on 02/21/20at 13:31; Start 02/20/20 at 08:30 Potassium Chloride/Water 100 ml @ 100 mls/hr PRN Q1HR PRN IV SEE COMMENTS; Start 02/20/20 at 08:30 Furosemide (Lasix) 40 mg 1X ONCE IVP Last administered on 02/20/20at 10:30; Start 02/20/20 at 10:00; Stop 02/20/20 at 10:01; Status DC Info (Anti-Coagulation Monitoring By Pharmacy) 1 each PRN DAILY PRN MC SEE COMMENTS Last administered on 02/21/20at 10:04; Start 02/20/20 at 11:30 Losartan Potassium (Cozaar) 50 mg DAILY PO Last administered on 02/24/20at 08:50; Start 02/21/20 at 09:00 Warfarin Sodium (Coumadin Per Pharmacy) 1 each PRN DAILY PRN MC SEE COMMENTS Last administered on 02/20/20at 15:45; Start 02/20/20 at 12:45; Stop 02/21/20 at 09:58; Status DC Metoprolol Tartrate (Lopressor) 25 mg Q6HRS PO Last administered on 02/21/20at 06:14; Start 02/20/20 at 12:45; Stop 02/21/20 at 13:31; Status DC Amiodarone HCl (Cordarone) 400 mg BID PO Last administered on 02/21/20at 08:33; Start 02/20/20 at 13:00; Stop 02/21/20 at 12:56; Status DC Enoxaparin Sodium (Lovenox 100mg Syringe) 100 mg Q12HR SQ Last administered on 02/24/20at 08:58; Start 02/20/20 at 21:00 Warfarin Sodium (Coumadin) 5 mg 1X WARF ONCE PO ; Start 02/20/20 at 16:00; Stop 02/20/20 at 16:01; Status DC Furosemide (Lasix) 40 mg DAILY IVP Last administered on 02/24/20at 11:11; Start 02/21/20 at 09:00 Metoprolol Tartrate (Lopressor) 25 mg 1X ONCE PO Last administered on 02/21/20at 12:23; Start 02/21/20 at 11:45; Stop 02/21/20 at 11:46; Status DC Amiodarone HCl (Cordarone) 200 mg DAILY PO Last administered on 02/24/20at 08:50; Start 02/22/20 at 14:00 Amiodarone HCl 450 mg/Dextrose 259 ml @ 0 mls/hr CONT PRN IV SEE I/O RECORD Last administered on 02/21/20at 21:21; Start 02/21/20 at 13:00; Stop 02/21/20 at 21:21; Status DC Furosemide (Lasix) 40 mg 1X ONCE IVP Last administered on 02/21/20at 15:30; Start 02/21/20 at 14:00; Stop 02/21/20 at 14:01; Status DC Metoprolol Succinate (Toprol Xl) 50 mg BID PO Last administered on 02/24/20at 08:50; Start 02/21/20 at 21:00 Iodixanol (Visipaque 320) 100 ml STK-MED ONCE .ROUTE ; Start 02/22/20 at 11:55; Stop 02/22/20 at 11:55; Status DC Lidocaine HCl (Xylocaine-Mpf 1% 2ml Vial) 2 ml STK-MED ONCE .ROUTE ; Start 02/22/20 at 11:55; Stop 02/22/20 at 11:55; Status DC Heparin Sodium/ Sodium Chloride 500 ml @ As Directed STK-MED ONCE .ROUTE ; Start 02/22/20 at 11:55; Stop 02/22/20 at 11:56; Status DC Fentanyl Citrate (Fentanyl 2ml Vial) 100 mcg STK-MED ONCE .ROUTE ; Start 02/22/20 at 12:07; Stop 02/22/20 at 12:07; Status DC Midazolam HCl (Versed) 5 mg STK-MED ONCE .ROUTE ; Start 02/22/20 at 12:07; Stop 02/22/20 at 12:07; Status DC Heparin Sodium (Porcine) (Heparin Sodium) 10,000 unit STK-MED ONCE .ROUTE ; Start 02/22/20 at 12:07; Stop 02/22/20 at 12:07; Status DC Verapamil HCl (Verapamil) 5 mg STK-MED ONCE .ROUTE ; Start 02/22/20 at 12:07; Stop 02/22/20 at 12:07; Status DC Nitroglycerin (Nitroglycerin) 200 mcg STK-MED ONCE .ROUTE ; Start 02/22/20 at 12:07; Stop 02/22/20 at 12:07; Status DC Nitroglycerin (Nitroglycerin) 200 mcg 1X ONCE IART Last administered on 02/22/20at 13:54; Start 02/22/20 at 13:30; Stop 02/22/20 at 13:31; Status DC Verapamil HCl (Verapamil) 2.5 mg 1X ONCE IART Last administered on 02/22/20at 13:55; Start 02/22/20 at 13:30; Stop 02/22/20 at 13:31; Status DC Heparin Sodium (Porcine) (Heparin Sodium) 2,500 unit 1X ONCE IART Last administered on 02/22/20 13:53; Start 02/22/20 at 13:30; Stop 02/22/20 at 13 :31; Status DC Heparin Sodium/ Sodium Chloride (HEPARIN for ARTERIAL LINE FLUSH) 1,000 unit 1X ONCE IART Last administered on 02/22/20 13:52; Start 02/22/20 at 13:30; Stop 02/22/20 at 13:31; Status DC Midazolam HCl (Versed) 5 mg 1X ONCE IV Last administered on 02/22/20 13:54; Start 02/22/20 at 13:30; Stop 02/22/20 at 13:31; Status DC Fentanyl Citrate (Fentanyl 2ml Vial) 100 mcg 1X ONCE IV Last administered on 02/22/20 13:54; Start 02/22/20 at 13:30; Stop 02/22/20 at 13:31; Status DC Iodixanol (Visipaque 320) 100 ml 1X ONCE IART Last administered on 02/22/20 13:53; Start 02/22/20 at 13:30; Stop 02/22/20 at 13:31; Status DC Lidocaine HCl (Xylocaine-Mpf 1% 2ml Vial) 2 ml 1X ONCE INJ Last administered on 02/22/20 13:53; Start 02/22/20 at 13:30; Stop 02/22/20 at 13:31; Status DC Info (CONTRAST GIVEN -- Rx MONITORING) 1 each PRN DAILY PRN MC SEE COMMENTS; Start 02/22/20 at 13:30; Stop 02/24/20 at 13:29 Clopidogrel Bisulfate (Plavix) 600 mg 1X ONCE PO Last administered on 02/22/20at 13:55; Start 02/22/20 at 13:45; Stop 02/22/20 at 13:46; Status DC Aspirin (Monse Aspirin) 325 mg 1X ONCE PO Last administered on 02/22/20at 13:55; Start 02/22/20 at 13:45; Stop 02/22/20 at 13:46; Status DC Aspirin (Ecotrin) 81 mg DAILYWBKFT PO Last administered on 02/24/20at 08:51; Start 02/23/20 at 08:00 Clopidogrel Bisulfate (Plavix) 75 mg DAILYWBKFT PO Last administered on 02/24/20at 08:51; Start 02/23/20 at 08:00 Atorvastatin Calcium (Lipitor) 40 mg QHS PO Last administered on 02/23/20at 21:32; Start 02/22/20 at 21:00 Acetaminophen (Tylenol) 650 mg PRN Q6HRS PRN PO MILD PAIN / TEMP > 100.3'F; Start 02/22/20 at 14:15 Nitroglycerin (Nitrostat) 0.4 mg PRN Q5MIN PRN SL CHEST PAIN; Start 02/22/20 at 14:15 Amiodarone HCl (Cordarone) 200 mg 1X ONCE PO Last administered on 02/22/20at 18:33; Start 02/22/20 at 18:15; Stop 02/22/20 at 18:16; Status DC Digoxin (Lanoxin) 250 mcg 1X ONCE IV Last administered on 02/23/20at 15:07; Start 02/23/20 at 15:00; Stop 02/23/20 at 15:01; Status DC Digoxin (Lanoxin) 250 mcg 1X ONCE IV Last administered on 02/23/20at 18:21; Start 02/23/20 at 18:15; Stop 02/23/20 at 18:16; Status DC Active Scripts Active Reported Multi Vitamin Daily (Multivitamin) 1 Each Tablet 1 Tab PO DAILY 30 Days Cymbalta (Duloxetine Hcl) 60 Mg Capsule. 60 Mg PO HS Eliquis (Apixaban) 5 Mg Tablet 5 Mg PO DAILY Losartan-Hctz 100-12.5 Mg Tab (Losartan/Hydrochlorothiazide) 1 Each Tablet 1 Each PO DAILY Ativan (Lorazepam) 1 Mg Tablet 1 Mg PO DAILY Oxybutynin Chloride 5 Mg Tablet 15 Mg PO DAILY Multaq (Dronedarone Hcl) 400 Mg Tablet 400 Mg PO BID Metoprolol Tartrate 25 Mg Tablet 25 Mg PO BID Celebrex (Celecoxib) 200 Mg Capsule 200 Mg PO DAILY 30 Days Protonix (Pantoprazole Sodium) 20 Mg Tablet. 40 Mg PO BID Vitals/I & O Vital Sign - Last 24 Hours 02/23/20 02/23/20 02/23/20 02/23/20 15:00 15:07 18:21 19:37 Temp 98.1 98.1 Pulse 125 126 137 138 Resp 20 B/P (MAP) 127/70 (89) 135/63 120/72 124/71 Pulse Ox 97 O2 Delivery Nasal Cannula O2 Flow Rate 2.0 02/23/20 02/23/20 02/23/20 02/24/20 19:43 20:10 23:38 03:52 Temp 97.6 98.2 97.9 97.6 98.2 97.9 Pulse 117 111 101 Resp 16 18 16 B/P (MAP) 150/69 (96) 132/84 (100) 145/79 (101) Pulse Ox 95 94 95 O2 Delivery Nasal Cannula Nasal Cannula Nasal Cannula Nasal Cannula O2 Flow Rate 2.0 2.0 2.0 2.0 02/24/20 02/24/20 02/24/20 02/24/20 07:00 08:00 08:50 08:50 Temp 98.0 98.0 Pulse 115 137 119 Resp 16 B/P (MAP) 141/84 (103) 141/84 141/84 Pulse Ox 97 O2 Delivery Nasal Cannula Nasal Cannula O2 Flow Rate 2.0 2.0 02/24/20 08:50 Pulse 145 B/P (MAP) 141/84 Intake and Output 02/23/20 02/23/20 02/24/20 15:00 23:00 07:00 Intake Total 0 ml 100 ml Output Total 2500 ml 650 ml Balance -2500 ml -550 ml Justicifation of Admission Dx: Justifications for Admission: Justification of Admission Dx: Yes CHF: Cardiac Arrhythmias ELINA POON MD Feb 24, 2020 11:32
--- NOTE | 2020-02-24 12:49 | PDOC ---
PULMONARY PROGRESS NOTES DATE: 02/24/20 TIME: 12:48 Subjective Remains 2 liters N/C No SOA, No cough Remains afib with uncontrolled rate S/P cardiac cath with stent to LAD Vitals Vital Signs Date Time Temp Pulse Resp B/P (MAP) Pulse Ox O2 Delivery O2 Flow Rate FiO2 02/24/20 08:50 145 141/84 02/24/20 08:00 Nasal Cannula 2.0 02/24/20 07:00 98.0 16 97 98.0 ROS: No Nausea, No Chest Pain, No Abdominal Pain General: Alert, No acute distress Lungs: Clear Abdomen: Soft Neuro Exam: Alert Extremities: Other (t1+edema) Labs Laboratory Tests Test 02/23/20 17:30 02/24/20 04:30 Prothrombin Time 14.0 SEC (11.7-14.0) 14.3 SEC (11.7-14.0) Prothromb Time International Ratio 1.1 (0.8-1.1) 1.2 (0.8-1.1) White Blood Count 10.0 x10^3/uL (4.0-11.0) Red Blood Count 3.63 x10^6/uL (3.50-5.40) Hemoglobin 10.9 g/dL (12.0-15.5) Hematocrit 32.9 % (36.0-47.0) Mean Corpuscular Volume 91 fL (79-100) Mean Corpuscular Hemoglobin 30 pg (25-35) Mean Corpuscular Hemoglobin Concent 33 g/dL (31-37) Red Cell Distribution Width 17.0 % (11.5-14.5) Platelet Count 277 x10^3/uL (140-400) Neutrophils (%) (Auto) 68 % (31-73) Lymphocytes (%) (Auto) 20 % (24-48) Monocytes (%) (Auto) 7 % (0-9) Eosinophils (%) (Auto) 5 % (0-3) Basophils (%) (Auto) 1 % (0-3) Neutrophils # (Auto) 6.8 x10^3/uL (1.8-7.7) Lymphocytes # (Auto) 2.0 x10^3/uL (1.0-4.8) Monocytes # (Auto) 0.6 x10^3/uL (0.0-1.1) Eosinophils # (Auto) 0.5 x10^3/uL (0.0-0.7) Basophils # (Auto) 0.1 x10^3/uL (0.0-0.2) Sodium Level 142 mmol/L (136-145) Potassium Level 3.4 mmol/L (3.5-5.1) Chloride Level 105 mmol/L (98-107) Carbon Dioxide Level 31 mmol/L (21-32) Anion Gap 6 (6-14) Blood Urea Nitrogen 15 mg/dL (7-20) Creatinine 1.0 mg/dL (0.6-1.0) Estimated GFR (Cockcroft-Gault) 53.3 BUN/Creatinine Ratio 15 (6-20) Glucose Level 111 mg/dL (70-99) Calcium Level 7.8 mg/dL (8.5-10.1) Total Bilirubin 0.4 mg/dL (0.2-1.0) Aspartate Amino Transf (AST/SGOT) 10 U/L (15-37) Alanine Aminotransferase (ALT/SGPT) 7 U/L (14-59) Alkaline Phosphatase 53 U/L (46-116) Total Protein 5.5 g/dL (6.4-8.2) Albumin 2.1 g/dL (3.4-5.0) Albumin/Globulin Ratio 0.6 (1.0-1.7) Laboratory Tests Test 02/23/20 17:30 02/24/20 04:30 Prothrombin Time 14.0 SEC (11.7-14.0) 14.3 SEC (11.7-14.0) Prothromb Time International Ratio 1.1 (0.8-1.1) 1.2 (0.8-1.1) White Blood Count 10.0 x10^3/uL (4.0-11.0) Red Blood Count 3.63 x10^6/uL (3.50-5.40) Hemoglobin 10.9 g/dL (12.0-15.5) Hematocrit 32.9 % (36.0-47.0) Mean Corpuscular Volume 91 fL (79-100) Mean Corpuscular Hemoglobin 30 pg (25-35) Mean Corpuscular Hemoglobin Concent 33 g/dL (31-37) Red Cell Distribution Width 17.0 % (11.5-14.5) Platelet Count 277 x10^3/uL (140-400) Neutrophils (%) (Auto) 68 % (31-73) Lymphocytes (%) (Auto) 20 % (24-48) Monocytes (%) (Auto) 7 % (0-9) Eosinophils (%) (Auto) 5 % (0-3) Basophils (%) (Auto) 1 % (0-3) Neutrophils # (Auto) 6.8 x10^3/uL (1.8-7.7) Lymphocytes # (Auto) 2.0 x10^3/uL (1.0-4.8) Monocytes # (Auto) 0.6 x10^3/uL (0.0-1.1) Eosinophils # (Auto) 0.5 x10^3/uL (0.0-0.7) Basophils # (Auto) 0.1 x10^3/uL (0.0-0.2) Sodium Level 142 mmol/L (136-145) Potassium Level 3.4 mmol/L (3.5-5.1) Chloride Level 105 mmol/L (98-107) Carbon Dioxide Level 31 mmol/L (21-32) Anion Gap 6 (6-14) Blood Urea Nitrogen 15 mg/dL (7-20) Creatinine 1.0 mg/dL (0.6-1.0) Estimated GFR (Cockcroft-Gault) 53.3 BUN/Creatinine Ratio 15 (6-20) Glucose Level 111 mg/dL (70-99) Calcium Level 7.8 mg/dL (8.5-10.1) Total Bilirubin 0.4 mg/dL (0.2-1.0) Aspartate Amino Transf (AST/SGOT) 10 U/L (15-37) Alanine Aminotransferase (ALT/SGPT) 7 U/L (14-59) Alkaline Phosphatase 53 U/L (46-116) Total Protein 5.5 g/dL (6.4-8.2) Albumin 2.1 g/dL (3.4-5.0) Albumin/Globulin Ratio 0.6 (1.0-1.7) Medications Active Scripts Medications Dose Route/Sig Max Daily Dose Days Date Category Multi Vitamin Daily (Multivitamin) 1 Each Tablet 1 Tab PO DAILY 30 02/20/20 Reported Cymbalta (Duloxetine Hcl) 60 Mg Capsule.dr 60 Mg PO HS 02/20/20 Reported Eliquis (Apixaban) 5 Mg Tablet 5 Mg PO DAILY 02/20/20 Reported Losartan-Hctz 100-12.5 Mg Tab (Losartan/Hydrochlorothiazide) 1 Each Tablet 1 Each PO DAILY 02/20/20 Reported Ativan (Lorazepam) 1 Mg Tablet 1 Mg PO DAILY 02/20/20 Reported Oxybutynin Chloride 5 Mg Tablet 15 Mg PO DAILY 02/20/20 Reported Multaq (Dronedarone Hcl) 400 Mg Tablet 400 Mg PO BID 02/19/20 Reported Metoprolol Tartrate 25 Mg Tablet 25 Mg PO BID 02/19/20 Reported Celebrex (Celecoxib) 200 Mg Capsule 200 Mg PO DAILY 30 02/19/20 Reported Protonix (Pantoprazole Sodium) 20 Mg Tablet.dr 40 Mg PO BID 02/19/20 Reported Comments CXR 02/22/20 IMPRESSION: * Repeat demonstration of interstitial and alveolar opacities throughout the bilateral lungs which can be seen with edema or infiltrate. Cardiac cath 02/22/2020 Conclusion 1. Severe single-vessel coronary disease, 90% stenosis involving the left anterior descending artery. 2. Successful PCI/stent placement to the left anterior descending artery. Recommendations 1. Aspirin 81 mg daily for 1 month (patient on triple therapy) 2. Plavix 75 mg daily 3. Cardiovascular risk factor modification 4. Optimize treatment for cardiomyopathy and repeat 2D echo in 3 months. Impression . 1. Acute hypoxic respiratory failure, secondary to acute congestive heart failure. Triggered by atrial fibrillation with rapid ventricular response. 2. The patient with COVID pneumonia and acute lung injury treated for about 5-6 weeks in the month of November at and then developed stroke while at the rehab facility and has been tested negative 5 times since then. Now comes in with acute hypoxic respiratory failure, which is likely caused by congestive heart failure. Low clinical suspicion for recurrent COVID infection. repeat test neg 3. Minimal tobacco history. 4. History of atrial fibrillation. 5. Abnormal chest x-ray with diffuse bilateral interstitial infiltrates consistent with congestive heart failure--improved 6. No evidence of deep venous thrombosis in the lower extremity. 7. Cardiomyopathy 8. CAD SP PCI/stent to LAD on 02/22/2020 9. AFIB W/ RVR-- Plan . 1. Continue present oxygen, currently at 2 liters, attempt to wean slowly 2. diuresis, monitor renal function with diuresis 3. Follow CXR PRN 4. Follow Cardiology recommendations regarding atrial fibrillation 5. Anticoagulation per Cardiology for AFib. 6. S/P cardiac cath with stent to LAD-- follow cardiology recs 7. PT/OT 8. 6 min walk prior to D/C Discussed with VERONIQUE FULTON MD Feb 24, 2020 12:49
--- NOTE | 2020-02-24 14:03 | PDOC ---
PROGRESS NOTES Date of Service DATE: 02/24/20 TIME: 14:01 Subjective Subjective Patient seen and examined Objective Objective Vital Signs Date Time Temp Pulse Resp B/P (MAP) Pulse Ox O2 Delivery O2 Flow Rate FiO2 02/24/20 11:00 98.2 117 16 137/74 (95) 97 Nasal Cannula 2.0 98.2 Intake and Output 02/24/20 07:00 Intake Total 100 ml Output Total 3150 ml Balance -3050 ml Intake Oral 100 ml Output Urine Total 3150 ml Physical Exam Abdomen: Normal bowel sounds Heart: Other (Irregularly irregular) General: mild distress Lungs: Clear to auscultation Assessment Assessment Problems Medical Problems: (1) Atrial fibrillation with rapid ventricular response Status: Acute (2) COPD exacerbation Status: Acute (3) Dyspnea Status: Acute (4) Respiratory failure Status: Acute Acute on chronic systolic CHF: Improved. Ejection fraction of 20 to 25% on catheterization. CAD. Cath with a 90% LAD lesion successfully stented with a bare-metal stent. Continue present treatment. AFIB RVR: paroxysmal by hx. we will continue present treatment and increased rate control GLADIS: CPAP intolerant; uses O2 at home. HTN: controlled HLP: past statin intolerance, lipids are on goal otherwise DM2: per pcp Obesity with debility r/t CVA Recently recovered from COVID-19 PNA in 11/2019: Covid negative Hx of recent embolic stroke with left side hemiparesis: Comment Review of Relevant I have reviewed the following items grace (where applicable) has been applied. Labs Laboratory Tests Test 02/23/20 17:30 02/24/20 04:30 Prothrombin Time 14.0 SEC (11.7-14.0) 14.3 SEC (11.7-14.0) Prothromb Time International Ratio 1.1 (0.8-1.1) 1.2 (0.8-1.1) White Blood Count 10.0 x10^3/uL (4.0-11.0) Red Blood Count 3.63 x10^6/uL (3.50-5.40) Hemoglobin 10.9 g/dL (12.0-15.5) Hematocrit 32.9 % (36.0-47.0) Mean Corpuscular Volume 91 fL (79-100) Mean Corpuscular Hemoglobin 30 pg (25-35) Mean Corpuscular Hemoglobin Concent 33 g/dL (31-37) Red Cell Distribution Width 17.0 % (11.5-14.5) Platelet Count 277 x10^3/uL (140-400) Neutrophils (%) (Auto) 68 % (31-73) Lymphocytes (%) (Auto) 20 % (24-48) Monocytes (%) (Auto) 7 % (0-9) Eosinophils (%) (Auto) 5 % (0-3) Basophils (%) (Auto) 1 % (0-3) Neutrophils # (Auto) 6.8 x10^3/uL (1.8-7.7) Lymphocytes # (Auto) 2.0 x10^3/uL (1.0-4.8) Monocytes # (Auto) 0.6 x10^3/uL (0.0-1.1) Eosinophils # (Auto) 0.5 x10^3/uL (0.0-0.7) Basophils # (Auto) 0.1 x10^3/uL (0.0-0.2) Sodium Level 142 mmol/L (136-145) Potassium Level 3.4 mmol/L (3.5-5.1) Chloride Level 105 mmol/L (98-107) Carbon Dioxide Level 31 mmol/L (21-32) Anion Gap 6 (6-14) Blood Urea Nitrogen 15 mg/dL (7-20) Creatinine 1.0 mg/dL (0.6-1.0) Estimated GFR (Cockcroft-Gault) 53.3 BUN/Creatinine Ratio 15 (6-20) Glucose Level 111 mg/dL (70-99) Calcium Level 7.8 mg/dL (8.5-10.1) Total Bilirubin 0.4 mg/dL (0.2-1.0) Aspartate Amino Transf (AST/SGOT) 10 U/L (15-37) Alanine Aminotransferase (ALT/SGPT) 7 U/L (14-59) Alkaline Phosphatase 53 U/L (46-116) Total Protein 5.5 g/dL (6.4-8.2) Albumin 2.1 g/dL (3.4-5.0) Albumin/Globulin Ratio 0.6 (1.0-1.7) Laboratory Tests Test 02/23/20 17:30 8/30/20 04:30 Prothrombin Time 14.0 SEC (11.7-14.0) 14.3 SEC (11.7-14.0) Prothromb Time International Ratio 1.1 (0.8-1.1) 1.2 (0.8-1.1) White Blood Count 10.0 x10^3/uL (4.0-11.0) Red Blood Count 3.63 x10^6/uL (3.50-5.40) Hemoglobin 10.9 g/dL (12.0-15.5) Hematocrit 32.9 % (36.0-47.0) Mean Corpuscular Volume 91 fL (79-100) Mean Corpuscular Hemoglobin 30 pg (25-35) Mean Corpuscular Hemoglobin Concent 33 g/dL (31-37) Red Cell Distribution Width 17.0 % (11.5-14.5) Platelet Count 277 x10^3/uL (140-400) Neutrophils (%) (Auto) 68 % (31-73) Lymphocytes (%) (Auto) 20 % (24-48) Monocytes (%) (Auto) 7 % (0-9) Eosinophils (%) (Auto) 5 % (0-3) Basophils (%) (Auto) 1 % (0-3) Neutrophils # (Auto) 6.8 x10^3/uL (1.8-7.7) Lymphocytes # (Auto) 2.0 x10^3/uL (1.0-4.8) Monocytes # (Auto) 0.6 x10^3/uL (0.0-1.1) Eosinophils # (Auto) 0.5 x10^3/uL (0.0-0.7) Basophils # (Auto) 0.1 x10^3/uL (0.0-0.2) Sodium Level 142 mmol/L (136-145) Potassium Level 3.4 mmol/L (3.5-5.1) Chloride Level 105 mmol/L (98-107) Carbon Dioxide Level 31 mmol/L (21-32) Anion Gap 6 (6-14) Blood Urea Nitrogen 15 mg/dL (7-20) Creatinine 1.0 mg/dL (0.6-1.0) Estimated GFR (Cockcroft-Gault) 53.3 BUN/Creatinine Ratio 15 (6-20) Glucose Level 111 mg/dL (70-99) Calcium Level 7.8 mg/dL (8.5-10.1) Total Bilirubin 0.4 mg/dL (0.2-1.0) Aspartate Amino Transf (AST/SGOT) 10 U/L (15-37) Alanine Aminotransferase (ALT/SGPT) 7 U/L (14-59) Alkaline Phosphatase 53 U/L (46-116) Total Protein 5.5 g/dL (6.4-8.2) Albumin 2.1 g/dL (3.4-5.0) Albumin/Globulin Ratio 0.6 (1.0-1.7) Medications Current Medications Sodium Chloride 1,000 ml @ 1,000 mls/hr 1X ONCE IV Last administered on 02/19/20at 14:05; Start 02/19/20 at 13:30; Stop 02/19/20 at 14:29; Status DC Diltiazem HCl (Cardizem Iv Push) 20 mg 1X ONCE IVP Last administered on 02/19/20at 14:04; Start 02/19/20 at 14:00; Stop 02/19/20 at 14:01; Status DC Methylprednisolone Sodium Succinate (SOLU-Medrol 125MG VIAL) 125 mg 1X ONCE IV Last administered on 02/19/20at 14:04; Start 02/19/20 at 13:45; Stop 02/19/20 at 13:46; Status DC Albuterol/ Ipratropium (Duoneb) 3 ml 1X ONCE NEB Last administered on 02/19/20at 14:05; Start 02/19/20 at 13:45; Stop 02/19/20 at 13:46; Status DC Diltiazem HCl 125 mg/Sodium Chloride 125 ml @ 5 mls/hr 1X ONCE IV Last administered on 02/19/20at 15:15; Start 02/19/20 at 15:15; Stop 02/20/20 at 16:14; Status DC Levofloxacin/ Dextrose 150 ml @ 100 mls/hr 1X ONCE IV Last administered on 02/19/20at 17:09; Start 02/19/20 at 16:45; Stop 02/19/20 at 18:14; Status DC Metoprolol Tartrate (Lopressor Vial) 5 mg 1X ONCE IVP Last administered on 02/19/20at 18:30; Start 02/19/20 at 18:15; Stop 02/19/20 at 18:16; Status DC Enoxaparin Sodium (Lovenox Per Pharmacy Treatment Dosing) 1 each PRN DAILY PRN MC SEE COMMENTS; Start 02/19/20 at 22:30 Dronedarone (Multaq) 400 mg 1X ONCE PO Last administered on 02/19/20at 23:18; Start 02/19/20 at 22:45; Stop 02/19/20 at 22:46; Status DC Pantoprazole Sodium (Protonix) 40 mg 1X ONCE PO Last administered on 02/19/20at 23:17; Start 02/19/20 at 22:45; Stop 02/19/20 at 22:46; Status DC Metoprolol Tartrate (Lopressor) 25 mg 1X ONCE PO Last administered on 02/19/20at 23:17; Start 02/19/20 at 22:45; Stop 02/19/20 at 22:46; Status DC Enoxaparin Sodium (Lovenox 100mg Syringe) 90 mg Q12HR SQ Last administered on 02/20/20at 08:00; Start 02/19/20 at 22:45; Stop 02/20/20 at 14:17; Status DC Diltiazem HCl 125 mg/Sodium Chloride 125 ml @ 10 mls/hr CONT PRN IV SEE I/O RECORD Last administered on 02/20/20at 01:05; Start 02/20/20 at 00:30; Stop 02/20/20 at 12:44; Status DC Dronedarone (Multaq) 400 mg BID PO Last administered on 02/20/20at 08:02; Start 02/20/20 at 09:00; Stop 02/20/20 at 12:44; Status DC Lorazepam (Ativan) 1 mg DAILY PO Last administered on 02/24/20at 08:51; Start 02/20/20 at 09:00 Metoprolol Tartrate (Lopressor) 25 mg BID PO Last administered on 02/21/20at 08:33; Start 02/20/20 at 09:00; Stop 02/21/20 at 09:59; Status DC Oxybutynin Chloride (Ditropan) 15 mg DAILY PO Last administered on 02/24/20at 08:49; Start 02/20/20 at 09:00 Celecoxib (CeleBREX) 200 mg DAILY PO Last administered on 02/24/20 08:51; Start 02/20/20 at 09:00 Duloxetine HCl (Cymbalta) 60 mg HS PO Last administered on 02/23/20at 21:33; Start 02/20/20 at 21:00 Non-Formulary Medication (Losartan/ Hydrochlorothiazide (Losartan-Hctz 100-12.5 Mg Tab)) 1 each DAILY PO ; Start 02/20/20 at 09:00; Status UNV Multivitamins (Thera M Plus) 1 tab DAILY PO Last administered on 02/24/20at 08:51; Start 02/20/20 at 09:00 Pantoprazole Sodium (Protonix) 40 mg BIDAC PO Last administered on 02/24/20 08:51; Start 02/20/20 at 07:30 Losartan Potassium (Cozaar) 100 mg DAILY PO Last administered on 02/20/20at 08:01; Start 02/20/20 at 09:00; Stop 02/20/20 at 12:44; Status DC Hydrochlorothiazide (Microzide) 12.5 mg DAILY PO Last administered on 02/20/20at 08:01; Start 02/20/20 at 09:00; Stop 02/20/20 at 12:45; Status DC Potassium Chloride (Klor-Con) 40 meq 1X PRN PRN PO SEE COMMENTS Last administered on 02/21/20at 15:37; Start 02/20/20 at 08:30 Potassium Chloride/Water 100 ml @ 100 mls/hr PRN Q1HR PRN IV SEE COMMENTS; Start 02/20/20 at 08:30 Magnesium Sulfate 50 ml @ 25 mls/hr PRN DAILY PRN IV SEE COMMENTS; Start 02/20/20 at 08:30 Potassium Phos/ Sodium Phos (Phos-Nak) 1 pkt PRN BID PRN PO SEE COMMENTS; Start 02/20/20 at 09:00 Potassium Bicarbonate (Potassium Effervescent Tablet) 40 meq PRN Q4HRS PRN PO SEE COMMENTS Last administered on 02/21/20at 13:31; Start 02/20/20 at 08:30 Potassium Chloride/Water 100 ml @ 100 mls/hr PRN Q1HR PRN IV SEE COMMENTS; Start 02/20/20 at 08:30 Furosemide (Lasix) 40 mg 1X ONCE IVP Last administered on 02/20/20at 10:30; Start 02/20/20 at 10:00; Stop 02/20/20 at 10:01; Status DC Info (Anti-Coagulation Monitoring By Pharmacy) 1 each PRN DAILY PRN MC SEE COMMENTS Last administered on 02/21/20at 10:04; Start 02/20/20 at 11:30 Losartan Potassium (Cozaar) 50 mg DAILY PO Last administered on 02/24/20at 08:50; Start 02/21/20 at 09:00 Warfarin Sodium (Coumadin Per Pharmacy) 1 each PRN DAILY PRN MC SEE COMMENTS Last administered on 02/20/20at 15:45; Start 02/20/20 at 12:45; Stop 02/21/20 at 09:58; Status DC Metoprolol Tartrate (Lopressor) 25 mg Q6HRS PO Last administered on 02/21/20at 06:14; Start 02/20/20 at 12:45; Stop 02/21/20 at 13:31; Status DC Amiodarone HCl (Cordarone) 400 mg BID PO Last administered on 02/21/20at 08:33; Start 02/20/20 at 13:00; Stop 02/21/20 at 12:56; Status DC Enoxaparin Sodium (Lovenox 100mg Syringe) 100 mg Q12HR SQ Last administered on 02/24/20at 08:58; Start 02/20/20 at 21:00 Warfarin Sodium (Coumadin) 5 mg 1X WARF ONCE PO ; Start 02/20/20 at 16:00; Stop 02/20/20 at 16:01; Status DC Furosemide (Lasix) 40 mg DAILY IVP Last administered on 02/24/20at 11:11; Start 02/21/20 at 09:00 Metoprolol Tartrate (Lopressor) 25 mg 1X ONCE PO Last administered on 02/21/20at 12:23; Start 02/21/20 at 11:45; Stop 02/21/20 at 11:46; Status DC Amiodarone HCl (Cordarone) 200 mg DAILY PO Last administered on 02/24/20at 08:50; Start 02/22/20 at 14:00 Amiodarone HCl 450 mg/Dextrose 259 ml @ 0 mls/hr CONT PRN IV SEE I/O RECORD Last administered on 02/21/20at 21:21; Start 02/21/20 at 13:00; Stop 02/21/20 at 21:21; Status DC Furosemide (Lasix) 40 mg 1X ONCE IVP Last administered on 02/21/20at 15:30; Start 02/21/20 at 14:00; Stop 02/21/20 at 14:01; Status DC Metoprolol Succinate (Toprol Xl) 50 mg BID PO Last administered on 02/24/20at 08:50; Start 02/21/20 at 21:00 Iodixanol (Visipaque 320) 100 ml STK-MED ONCE .ROUTE ; Start 02/22/20 at 11:55; Stop 02/22/20 at 11:55; Status DC Lidocaine HCl (Xylocaine-Mpf 1% 2ml Vial) 2 ml STK-MED ONCE .ROUTE ; Start 02/22/20 at 11:55; Stop 02/22/20 at 11:55; Status DC Heparin Sodium/ Sodium Chloride 500 ml @ As Directed STK-MED ONCE .ROUTE ; Start 02/22/20 at 11:55; Stop 02/22/20 at 11:56; Status DC Fentanyl Citrate (Fentanyl 2ml Vial) 100 mcg STK-MED ONCE .ROUTE ; Start 02/22/20 at 12:07; Stop 02/22/20 at 12:07; Status DC Midazolam HCl (Versed) 5 mg STK-MED ONCE .ROUTE ; Start 02/22/20 at 12:07; Stop 02/22/20 at 12:07; Status DC Heparin Sodium (Porcine) (Heparin Sodium) 10,000 unit STK-MED ONCE .ROUTE ; S tart 02/22/20 at 12:07; Stop 02/22/20 at 12:07; Status DC Verapamil HCl (Verapamil) 5 mg STK-MED ONCE .ROUTE ; Start 02/22/20 at 12:07; Stop 02/22/20 at 12:07; Status DC Nitroglycerin (Nitroglycerin) 200 mcg STK-MED ONCE .ROUTE ; Start 02/22/20 at 12:07; Stop 02/22/20 at 12:07; Status DC Nitroglycerin (Nitroglycerin) 200 mcg 1X ONCE IART Last administered on 02/22/20at 13:54; Start 02/22/20 at 13:30; Stop 02/22/20 at 13:31; Status DC Verapamil HCl (Verapamil) 2.5 mg 1X ONCE IART Last administered on 02/22/20 13:55; Start 02/22/20 at 13:30; Stop 02/22/20 at 13:31; Status DC Heparin Sodium (Porcine) (Heparin Sodium) 2,500 unit 1X ONCE IART Last administered on 02/22/20 13:53; Start 02/22/20 at 13:30; Stop 02/22/20 at 13:31; Status DC Heparin Sodium/ Sodium Chloride (HEPARIN for ARTERIAL LINE FLUSH) 1,000 unit 1X ONCE IART Last administered on 02/22/20 13:52; Start 02/22/20 at 13:30; Stop 02/22/20 at 13:31; Status DC Midazolam HCl (Versed) 5 mg 1X ONCE IV Last administered on 02/22/20 13:54; Start 02/22/20 at 13:30; Stop 02/22/20 at 13:31; Status DC Fentanyl Citrate (Fentanyl 2ml Vial) 100 mcg 1X ONCE IV Last administered on 02/22/20 13:54; Start 02/22/20 at 13:30; Stop 02/22/20 at 13:31; Status DC Iodixanol (Visipaque 320) 100 ml 1X ONCE IART Last administered on 02/22/20 13:53; Start 02/22/20 at 13:30; Stop 02/22/20 at 13:31; Status DC Lidocaine HCl (Xylocaine-Mpf 1% 2ml Vial) 2 ml 1X ONCE INJ Last administered on 02/22/20 13:53; Start 02/22/20 at 13:30; Stop 02/22/20 at 13:31; Status DC Info (CONTRAST GIVEN -- Rx MONITORING) 1 each PRN DAILY PRN MC SEE COMMENTS; Start 02/22/20 at 13:30; Stop 02/24/20 at 13:29; Status DC Clopidogrel Bisulfate (Plavix) 600 mg 1X ONCE PO Last administered on 02/22/20 13:55; Start 02/22/20 at 13:45; Stop 02/22/20 at 13:46; Status DC Aspirin (Monse Aspirin) 325 mg 1X ONCE PO Last administered on 02/22/20at 13:55; Start 02/22/20 at 13:45; Stop 02/22/20 at 13:46; Status DC Aspirin (Ecotrin) 81 mg DAILYWBKFT PO Last administered on 02/24/20at 08:51; Start 02/23/20 at 08:00 Clopidogrel Bisulfate (Plavix) 75 mg DAILYWBKFT PO Last administered on 02/24/20at 08:51; Start 02/23/20 at 08:00 Atorvastatin Calcium (Lipitor) 40 mg QHS PO Last administered on 02/23/20at 21:32; Start 02/22/20 at 21:00 Acetaminophen (Tylenol) 650 mg PRN Q6HRS PRN PO MILD PAIN / TEMP > 100.3'F; Start 02/22/20 at 14:15 Nitroglycerin (Nitrostat) 0.4 mg PRN Q5MIN PRN SL CHEST PAIN; Start 02/22/20 at 14:15 Amiodarone HCl (Cordarone) 200 mg 1X ONCE PO Last administered on 02/22/20at 18:33; Start 02/22/20 at 18:15; Stop 02/22/20 at 18:16; Status DC Digoxin (Lanoxin) 250 mcg 1X ONCE IV Last administered on 02/23/20at 15:07; Start 02/23/20 at 15:00; Stop 02/23/20 at 15:01; Status DC Digoxin (Lanoxin) 250 mcg 1X ONCE IV Last administered on 02/23/20at 18:21; Start 02/23/20 at 18:15; Stop 02/23/20 at 18:16; Status DC Active Scripts Active Reported Multi Vitamin Daily (Multivitamin) 1 Each Tablet 1 Tab PO DAILY 30 Days Cymbalta (Duloxetine Hcl) 60 Mg Capsule.dr 60 Mg PO HS Eliquis (Apixaban) 5 Mg Tablet 5 Mg PO DAILY Losartan-Hctz 100-12.5 Mg Tab (Losartan/Hydrochlorothiazide) 1 Each Tablet 1 Each PO DAILY Ativan (Lorazepam) 1 Mg Tablet 1 Mg PO DAILY Oxybutynin Chloride 5 Mg Tablet 15 Mg PO DAILY Multaq (Dronedarone Hcl) 400 Mg Tablet 400 Mg PO BID Metoprolol Tartrate 25 Mg Tablet 25 Mg PO BID Celebrex (Celecoxib) 200 Mg Capsule 200 Mg PO DAILY 30 Days Protonix (Pantoprazole Sodium) 20 Mg Tablet.dr 40 Mg PO BID Vitals/I & O Vital Sign - Last 24 Hours 02/23/20 02/23/20 02/23/20 02/23/20 15:00 15:07 18:21 19:37 Temp 98.1 98.1 Pulse 125 126 137 138 Resp 20 B/P (MAP) 127/70 (89) 135/63 120/72 124/71 Pulse Ox 97 O2 Delivery Nasal Cannula O2 Flow Rate 2.0 02/23/20 02/23/20 02/23/20 02/24/20 19:43 20:10 23:38 03:52 Temp 97.6 98.2 97.9 97.6 98.2 97.9 Pulse 117 111 101 Resp 16 18 16 B/P (MAP) 150/69 (96) 132/84 (100) 145/79 (101) Pulse Ox 95 94 95 O2 Delivery Nasal Cannula Nasal Cannula Nasal Cannula Nasal Cannula O2 Flow Rate 2.0 2.0 2.0 2.0 02/24/20 02/24/20 02/24/20 02/24/20 07:00 08:00 08:50 08:50 Temp 98.0 98.0 Pulse 115 137 119 Resp 16 B/P (MAP) 141/84 (103) 141/84 141/84 Pulse Ox 97 O2 Delivery Nasal Cannula Nasal Cannula O2 Flow Rate 2.0 2.0 02/24/20 02/24/20 08:50 11:00 Temp 98.2 98.2 Pulse 145 117 Resp 16 B/P (MAP) 141/84 137/74 (95) Pulse Ox 97 O2 Delivery Nasal Cannula O2 Flow Rate 2.0 Intake and Output 02/23/20 02/23/20 02/24/20 15:00 23:00 07:00 Intake Total 0 ml 100 ml Output Total 2500 ml 650 ml Balance -2500 ml -550 ml Justifications for Admission Other Justification ROGELIO ESTRADA MD Feb 24, 2020 14:03
[2020-02-24 15:00] VITALS: BP 107/59
[2020-02-24] MEDS ORDERED: POTASSIUM CHLORIDE 20 MEQ TABLET.ER. PO ONE (16:45)
--- NOTE | 2020-02-24 18:11 | NUR ---
Patient remains in Afib uncontrolled. HR running currently in 110s-130s. Dr. Chente alas.
[2020-02-24] MEDS ORDERED: DIGOXIN IV 500 MCG/2 ML AMPUL. IV ONE (18:30)
[2020-02-24 19:30] VITALS: BP 122/85
[2020-02-24] MEDS: DULoxetine HCL 30 MG CAPSULE.DR PO SCH (21:00)
[2020-02-24] MEDS: ATORVASTATIN CALCIUM 20 MG TABLET PO SCH (21:01)
[2020-02-24 23:58] VITALS: BP 126/74
[2020-02-25 02:39] VITALS: BP 155/76
--- NOTE | 2020-02-25 05:55 | NUR ---
Pt converted to sinus rhythm with PACs at 0415. Ecg strip placed in chart.
[2020-02-25 07:00] VITALS: BP 178/77
[2020-02-25 07:23] LABS: CREATININE 0.8 mg/dL (0.6-1.0); POTASSIUM 4.3 mmol/L (3.5-5.1)
[2020-02-25] MEDS ORDERED: POTASSIUM CHLORIDE 20 MEQ TABLET.ER. PO SCH (08:00)
[2020-02-25] MEDS: MULTIVITAMIN with MINERAL TABLET. PO SCH (08:16)
[2020-02-25] MEDS: METOPROLOL SUCC 24HR ER 50 MG TAB.ER.24H. PO SCH (08:17)
[2020-02-25] MEDS: ASPIRIN ENTERIC COATED 81 MG TABLET.DR. PO SCH (08:17)
[2020-02-25] MEDS: CELECOXIB 100 MG CAPSULE. PO SCH (08:17)
[2020-02-25] MEDS: LOSARTAN POTASSIUM 50 MG TABLET. PO SCH (08:17)
[2020-02-25] MEDS: FUROSEMIDE 40 MG/4 ML VIAL. IVP SCH (08:18)
[2020-02-25] MEDS: PANTOPRAZOLE 40 MG TABLET.DR. PO SCH ×2 (08:18→16:55)
[2020-02-25] MEDS: CLOPIDOGREL BISULFATE 75 MG TABLET PO SCH (08:18)
[2020-02-25] MEDS: AMIODARONE HCL 200 MG TABLET. PO SCH (08:18)
[2020-02-25] MEDS: OXYBUTYNIN CHLORIDE 5 MG TABLET PO SCH (08:18)
--- NOTE | 2020-02-25 08:55 | PDOC ---
PULMONARY PROGRESS NOTES DATE: 02/25/20 TIME: 08:54 Subjective Remains 2 liters N/C No SOA, No cough Remains afib with uncontrolled rate S/P cardiac cath with stent to LAD Vitals Vital Signs Date Time Temp Pulse Resp B/P (MAP) Pulse Ox O2 Delivery O2 Flow Rate FiO2 02/25/20 08:18 85 02/25/20 07:00 98.0 16 178/77 (110) 94 Nasal Cannula 2.0 98.0 ROS: No Nausea, No Chest Pain, No Abdominal Pain General: Alert, No acute distress Lungs: Clear Abdomen: Soft Neuro Exam: Alert Extremities: Other (t1+edema) Labs Laboratory Tests Test 02/23/20 17:30 02/24/20 04:30 02/25/20 05:17 Prothrombin Time 14.0 SEC (11.7-14.0) 14.3 SEC (11.7-14.0) Prothromb Time International Ratio 1.1 (0.8-1.1) 1.2 (0.8-1.1) White Blood Count 10.0 x10^3/uL (4.0-11.0) Red Blood Count 3.63 x10^6/uL (3.50-5.40) Hemoglobin 10.9 g/dL (12.0-15.5) Hematocrit 32.9 % (36.0-47.0) Mean Corpuscular Volume 91 fL (79-100) Mean Corpuscular Hemoglobin 30 pg (25-35) Mean Corpuscular Hemoglobin Concent 33 g/dL (31-37) Red Cell Distribution Width 17.0 % (11.5-14.5) Platelet Count 277 x10^3/uL (140-400) Neutrophils (%) (Auto) 68 % (31-73) Lymphocytes (%) (Auto) 20 % (24-48) Monocytes (%) (Auto) 7 % (0-9) Eosinophils (%) (Auto) 5 % (0-3) Basophils (%) (Auto) 1 % (0-3) Neutrophils # (Auto) 6.8 x10^3/uL (1.8-7.7) Lymphocytes # (Auto) 2.0 x10^3/uL (1.0-4.8) Monocytes # (Auto) 0.6 x10^3/uL (0.0-1.1) Eosinophils # (Auto) 0.5 x10^3/uL (0.0-0.7) Basophils # (Auto) 0.1 x10^3/uL (0.0-0.2) Sodium Level 142 mmol/L (136-145) 142 mmol/L (136-145) Potassium Level 3.4 mmol/L (3.5-5.1) 4.3 mmol/L (3.5-5.1) Chloride Level 105 mmol/L (98-107) 104 mmol/L (98-107) Carbon Dioxide Level 31 mmol/L (21-32) 29 mmol/L (21-32) Anion Gap 6 (6-14) 9 (6-14) Blood Urea Nitrogen 15 mg/dL (7-20) 14 mg/dL (7-20) Creatinine 1.0 mg/dL (0.6-1.0) 0.8 mg/dL (0.6-1.0) Estimated GFR (Cockcroft-Gault) 53.3 69.0 BUN/Creatinine Ratio 15 (6-20) Glucose Level 111 mg/dL (70-99) 105 mg/dL (70-99) Calcium Level 7.8 mg/dL (8.5-10.1) 8.0 mg/dL (8.5-10.1) Total Bilirubin 0.4 mg/dL (0.2-1.0) Aspartate Amino Transf (AST/SGOT) 10 U/L (15-37) Alanine Aminotransferase (ALT/SGPT) 7 U/L (14-59) Alkaline Phosphatase 53 U/L (46-116) Total Protein 5.5 g/dL (6.4-8.2) Albumin 2.1 g/dL (3.4-5.0) Albumin/Globulin Ratio 0.6 (1.0-1.7) Laboratory Tests Test 02/25/20 05:17 Sodium Level 142 mmol/L (136-145) Potassium Level 4.3 mmol/L (3.5-5.1) Chloride Level 104 mmol/L (98-107) Carbon Dioxide Level 29 mmol/L (21-32) Anion Gap 9 (6-14) Blood Urea Nitrogen 14 mg/dL (7-20) Creatinine 0.8 mg/dL (0.6-1.0) Estimated GFR (Cockcroft-Gault) 69.0 Glucose Level 105 mg/dL (70-99) Calcium Level 8.0 mg/dL (8.5-10.1) Medications Active Scripts Medications Dose Route/Sig Max Daily Dose Days Date Category Multi Vitamin Daily (Multivitamin) 1 Each Tablet 1 Tab PO DAILY 30 02/20/20 Reported Cymbalta (Duloxetine Hcl) 60 Mg Capsule.dr 60 Mg PO HS 02/20/20 Reported Eliquis (Apixaban) 5 Mg Tablet 5 Mg PO DAILY 02/20/20 Reported Losartan-Hctz 100-12.5 Mg Tab (Losartan/Hydrochlorothiazide) 1 Each Tablet 1 Each PO DAILY 02/20/20 Reported Ativan (Lorazepam) 1 Mg Tablet 1 Mg PO DAILY 02/20/20 Reported Oxybutynin Chloride 5 Mg Tablet 15 Mg PO DAILY 02/20/20 Reported Multaq (Dronedarone Hcl) 400 Mg Tablet 400 Mg PO BID 02/19/20 Reported Metoprolol Tartrate 25 Mg Tablet 25 Mg PO BID 02/19/20 Reported Celebrex (Celecoxib) 200 Mg Capsule 200 Mg PO DAILY 30 02/19/20 Reported Protonix (Pantoprazole Sodium) 20 Mg Tablet.dr 40 Mg PO BID 02/19/20 Reported Comments CXR 02/22/20 IMPRESSION: * Repeat demonstration of interstitial and alveolar opacities throughout the bilateral lungs which can be seen with edema or infiltrate. Cardiac cath 02/22/2020 Conclusion 1. Severe single-vessel coronary disease, 90% stenosis involving the left anterior descending artery. 2. Successful PCI/stent placement to the left anterior descending artery. Recommendations 1. Aspirin 81 mg daily for 1 month (patient on triple therapy) 2. Plavix 75 mg daily 3. Cardiovascular risk factor modification 4. Optimize treatment for cardiomyopathy and repeat 2D echo in 3 months. Impression . 1. Acute hypoxic respiratory failure, secondary to acute congestive heart failure. Triggered by atrial fibrillation with rapid ventricular response. 2. The patient with COVID pneumonia and acute lung injury treated for about 5-6 weeks in the month of November at and then developed stroke while at the rehab facility and has been tested negative 5 times since then. Now comes in with acute hypoxic respiratory failure, which is likely caused by congestive heart failure. Low clinical suspicion for recurrent COVID infection. repeat test neg 3. Minimal tobacco history. 4. History of atrial fibrillation. 5. Abnormal chest x-ray with diffuse bilateral interstitial infiltrates consistent with congestive heart failure--improved 6. No evidence of deep venous thrombosis in the lower extremity. 7. Cardiomyopathy 8. CAD SP PCI/stent to LAD on 02/22/2020 ischemic cardiomyopathy EF 20% 9. AFIB W/ RVR-- Plan . Patient has improved discharge today 6-minute walk Diuresis per cardiology VERONIQUE MARRUFO MD Feb 25, 2020 08:54
[2020-02-25 10:29] VITALS: BP 127/79
--- NOTE | 2020-02-25 11:10 | NUR ---
SS following up with discharge planning. SS reviewed pt chart and discussed with pt RN. Pt's daughter requesting transfer to for cardiac ablation and pulmonary functioning test. Pt's daughter reported that pt sees Dr. Mariusz Pa at and reported that both she and her sister work in the heart center at . Pt's daughter reported that they have spoken with specialists on there end at and would like request for transfer to be made. SS contacted transfer team, , and spoke with Aydee, ; fax [phone]. SS phoned and faxed clinical as requested. SS contacted radiology and cardiology and requested images be clouded to . Packet and transfer form on the chart. Pt's RN notified.
--- NOTE | 2020-02-25 11:27 | PDOC ---
PROGRESS NOTES Date of Service: DATE: 02/25/20 TIME: 11:26 Chief Complaint Chief Complaint TRANSFER DX Acute respiratory failure due to likely acute CHF COVID pneumonia and acute lung injury treated for about 5-6 weeks in the month of November at and then developed stroke while at the rehabfacility and has been tested negative 5 times since then. acute on chronic diastolic CHF AFIB RVR, UNCONTROLLED // AFIB RVR evening 02/21 now transfer to [facility] Cardiology 02/24 for ablasion GLADIS HTN Dyslipidemia Diabetes Obesity class II Recent COVID infection pneumonia in November Recent embolic stroke with residual left-sided hemiparesis Chronic LE lymphedema HYPOKALEMIA PLAN ADMIT Appreciate cardiology and pulmonology recommendations TTE when COVID is negative Continue losartan at a low dose. Continue metoprolol. DC Cardizem and HCTZ. Continue with IV Lasix diuresis Continue IV antibiotics appreciate ID recommendations Follow-up blood cultures Lovenox and warfarin for DVT prophylaxis Protonix GI prophylaxis ADA diet Full code Discussed with RN and SW Disposition inpatient Surrogate decision maker is self abg today, cxr 02/24 d/c planning 34 min 27 min pt exam, chart review, > 50% of time spent with exam, chart review, pt care coordination plan HOME HEALTH when stable is total care, provides care with History of Present Illness History of Present Illness 79-year-old female with past medical history of CHF, GLADIS, CVA, COVID pneumonia who presents to the ED with complaints of shortness of breath. She was recently treated for COVID and she developed a stroke during her treatment at . She eventually went to rehab afterwards. No acute events overnight. Patient is currently being evaluated by pulmonology and cardiology. Patient's chart, labs, images were reviewed and discussed with RN Vitals Vitals Vital Signs Date Time Temp Pulse Resp B/P (MAP) Pulse Ox O2 Delivery O2 Flow Rate FiO2 02/25/20 10:29 98.1 103 16 127/79 (95) 94 Nasal Cannula 2.0 98.1 Physical Exam General: Alert, Cooperative, No acute distress Heart: Other (Irregularly irregular) Lungs: Clear Abdomen: Normal bowel sounds Extremities: No clubbing, No cyanosis, No edema, Other (2+ bilateral LE pitting edema) Skin: No breakdown Labs LABS INDICATION: Reason: CHF / Spl. Instructions: / History: COMPARISON: February 19, 2020 FINDINGS: Single view of chest obtained. Cardiac silhouette is again prominent in size. Interstitial and alveolar opacities are again seen throughout the bilateral lungs and similar to prior. IMPRESSION: * Repeat demonstration of interstitial and alveolar opacities throughout the bilateral lungs which can be seen with edema or infiltrate. Electronically signed by: Brianna Landis MD (02/22/2020 8:42 AM) [id number] DICTATED and SIGNED BY: BRIANNA LANDIS MD DATE: 02/22/20 0842 Laboratory Tests Test 02/25/20 05:17 Sodium Level 142 mmol/L (136-145) Potassium Level 4.3 mmol/L (3.5-5.1) Chloride Level 104 mmol/L (98-107) Carbon Dioxide Level 29 mmol/L (21-32) Anion Gap 9 (6-14) Blood Urea Nitrogen 14 mg/dL (7-20) Creatinine 0.8 mg/dL (0.6-1.0) Estimated GFR (Cockcroft-Gault) 69.0 Glucose Level 105 mg/dL (70-99) Calcium Level 8.0 mg/dL (8.5-10.1) Assessment and Plan Assessmemt and Plan Problems Medical Problems: (1) Atrial fibrillation with rapid ventricular response Status: Acute (2) COPD exacerbation Status: Acute (3) Dyspnea Status: Acute (4) Respiratory failure Status: Acute - Visit Type * On Hold Attempted Visit Details * Hold PT due to tachycardia at rest 125-140s. Pt. c/o sleepiness. PT/FRIT COATER * China Mohr DPT Comment Review of Relevant I have reviewed the following items grace (where applicable) has been applied. Labs Laboratory Tests Test 02/23/20 17:30 02/24/20 04:30 02/25/20 05:17 Prothrombin Time 14.0 SEC (11.7-14.0) 14.3 SEC (11.7-14.0) Prothromb Time International Ratio 1.1 (0.8-1.1) 1.2 (0.8-1.1) White Blood Count 10.0 x10^3/uL (4.0-11.0) Red Blood Count 3.63 x10^6/uL (3.50-5.40) Hemoglobin 10.9 g/dL (12.0-15.5) Hematocrit 32.9 % (36.0-47.0) Mean Corpuscular Volume 91 fL (79-100) Mean Corpuscular Hemoglobin 30 pg (25-35) Mean Corpuscular Hemoglobin Concent 33 g/dL (31-37) Red Cell Distribution Width 17.0 % (11.5-14.5) Platelet Count 277 x10^3/uL (140-400) Neutrophils (%) (Auto) 68 % (31-73) Lymphocytes (%) (Auto) 20 % (24-48) Monocytes (%) (Auto) 7 % (0-9) Eosinophils (%) (Auto) 5 % (0-3) Basophils (%) (Auto) 1 % (0-3) Neutrophils # (Auto) 6.8 x10^3/uL (1.8-7.7) Lymphocytes # (Auto) 2.0 x10^3/uL (1.0-4.8) Monocytes # (Auto) 0.6 x10^3/uL (0.0-1.1) Eosinophils # (Auto) 0.5 x10^3/uL (0.0-0.7) Basophils # (Auto) 0.1 x10^3/uL (0.0-0.2) Sodium Level 142 mmol/L (136-145) 142 mmol/L (136-145) Potassium Level 3.4 mmol/L (3.5-5.1) 4.3 mmol/L (3.5-5.1) Chloride Level 105 mmol/L (98-107) 104 mmol/L (98-107) Carbon Dioxide Level 31 mmol/L (21-32) 29 mmol/L (21-32) Anion Gap 6 (6-14) 9 (6-14) Blood Urea Nitrogen 15 mg/dL (7-20) 14 mg/dL (7-20) Creatinine 1.0 mg/dL (0.6-1.0) 0.8 mg/dL (0.6-1.0) Estimated GFR (Cockcroft-Gault) 53.3 69.0 BUN/Creatinine Ratio 15 (6-20) Glucose Level 111 mg/dL (70-99) 105 mg/dL (70-99) Calcium Level 7.8 mg/dL (8.5-10.1) 8.0 mg/dL (8.5-10.1) Total Bilirubin 0.4 mg/dL (0.2-1.0) Aspartate Amino Transf (AST/SGOT) 10 U/L (15-37) Alanine Aminotransferase (ALT/SGPT) 7 U/L (14-59) Alkaline Phosphatase 53 U/L (46-116) Total Protein 5.5 g/dL (6.4-8.2) Albumin 2.1 g/dL (3.4-5.0) Albumin/Globulin Ratio 0.6 (1.0-1.7) Laboratory Tests Test 02/25/20 05:17 Sodium Level 142 mmol/L (136-145) Potassium Level 4.3 mmol/L (3.5-5.1) Chloride Level 104 mmol/L (98-107) Carbon Dioxide Level 29 mmol/L (21-32) Anion Gap 9 (6-14) Blood Urea Nitrogen 14 mg/dL (7-20) Creatinine 0.8 mg/dL (0.6-1.0) Estimated GFR (Cockcroft-Gault) 69.0 Glucose Level 105 mg/dL (70-99) Calcium Level 8.0 mg/dL (8.5-10.1) Medications Current Medications Sodium Chloride 1,000 ml @ 1,000 mls/hr 1X ONCE IV Last administered on 02/19/20at 14:05; Start 02/19/20 at 13:30; Stop 02/19/20 at 14:29; Status DC Diltiazem HCl (Cardizem Iv Push) 20 mg 1X ONCE IVP Last administered on 02/19/20at 14:04; Start 02/19/20 at 14:00; Stop 02/19/20 at 14:01; Status DC Methylprednisolone Sodium Succinate (SOLU-Medrol 125MG VIAL) 125 mg 1X ONCE IV Last administered on 02/19/20at 14:04; Start 02/19/20 at 13:45; Stop 02/19/20 at 13:46; Status DC Albuterol/ Ipratropium (Duoneb) 3 ml 1X ONCE NEB Last administered on 02/19/20at 14:05; Start 02/19/20 at 13:45; Stop 02/19/20 at 13:46; Status DC Diltiazem HCl 125 mg/Sodium Chloride 125 ml @ 5 mls/hr 1X ONCE IV Last administered on 02/19/20at 15:15; Start 02/19/20 at 15:15; Stop 02/20/20 at 16:14; Status DC Levofloxacin/ Dextrose 150 ml @ 100 mls/hr 1X ONCE IV Last administered on 02/19/20at 17:09; Start 02/19/20 at 16:45; Stop 02/19/20 at 18:14; Status DC Metoprolol Tartrate (Lopressor Vial) 5 mg 1X ONCE IVP Last administered on 02/19/20at 18:30; Start 02/19/20 at 18:15; Stop 02/19/20 at 18:16; Status DC Enoxaparin Sodium (Lovenox Per Pharmacy Treatment Dosing) 1 each PRN DAILY PRN MC SEE COMMENTS; Start 02/19/20 at 22:30 Dronedarone (Multaq) 400 mg 1X ONCE PO Last administered on 02/19/20at 23:18; Start 02/19/20 at 22:45; Stop 02/19/20 at 22:46; Status DC Pantoprazole Sodium (Protonix) 40 mg 1X ONCE PO Last administered on 02/19/20at 23:17; Start 02/19/20 at 22:45; Stop 02/19/20 at 22:46; Status DC Metoprolol Tartrate (Lopressor) 25 mg 1X ONCE PO Last administered on 02/19/20at 23:17; Start 02/19/20 at 22:45; Stop 02/19/20 at 22:46; Status DC Enoxaparin Sodium (Lovenox 100mg Syringe) 90 mg Q12HR SQ Last administered on 02/20/20at 08:00; Start 02/19/20 at 22:45; Stop 02/20/20 at 14:17; Status DC Diltiazem HCl 125 mg/Sodium Chloride 125 ml @ 10 mls/hr CONT PRN IV SEE I/O RECORD Last administered on 02/20/20at 01:05; Start 02/20/20 at 00:30; Stop 02/20/20 at 12:44; Status DC Dronedarone (Multaq) 400 mg BID PO Last administered on 02/20/20at 08:02; Start 02/20/20 at 09:00; Stop 02/20/20 at 12:44; Status DC Lorazepam (Ativan) 1 mg DAILY PO Last administered on 02/25/20at 08:17; Start 02/20/20 at 09:00 Metoprolol Tartrate (Lopressor) 25 mg BID PO Last administered on 02/21/20at 08:33; Start 02/20/20 at 09:00; Stop 02/21/20 at 09:59; Status DC Oxybutynin Chloride (Ditropan) 15 mg DAILY PO Last administered on 02/25/20at 08:18; Start 02/20/20 at 09:00 Celecoxib (CeleBREX) 200 mg DAILY PO Last administered on 02/25/20at 08:17; Start 02/20/20 at 09:00 Duloxetine HCl (Cymbalta) 60 mg HS PO Last administered on 02/24/20at 21:00; Start 02/20/20 at 21:00 Non-Formulary Medication (Losartan/ Hydrochlorothiazide (Losartan-Hctz 100-12.5 Mg Tab)) 1 each DAILY PO ; Start 02/20/20 at 09:00; Status UNV Multivitamins (Thera M Plus) 1 tab DAILY PO Last administered on 02/25/20at 08:16; Start 02/20/20 at 09:00 Pantoprazole Sodium (Protonix) 40 mg BIDAC PO Last administered on 02/25/20at 08:18; Start 02/20/20 at 07:30 Losartan Potassium (Cozaar) 100 mg DAILY PO Last administered on 02/20/20at 08:01; Start 02/20/20 at 09:00; Stop 02/20/20 at 12:44; Status DC Hydrochlorothiazide (Microzide) 12.5 mg DAILY PO Last administered on 02/20/20at 08:01; Start 02/20/20 at 09:00; Stop 02/20/20 at 12:45; Status DC Potassium Chloride (Klor-Con) 40 meq 1X PRN PRN PO SEE COMMENTS Last administered on 02/21/20at 15:37; Start 02/20/20 at 08:30 Potassium Chloride/Water 100 ml @ 100 mls/hr PRN Q1HR PRN IV SEE COMMENTS; Start 02/20/20 at 08:30 Magnesium Sulfate 50 ml @ 25 mls/hr PRN DAILY PRN IV SEE COMMENTS; Start 02/20/20 at 08:30 Potassium Phos/ Sodium Phos (Phos-Nak) 1 pkt PRN BID PRN PO SEE COMMENTS; Start 02/20/20 at 09:00 Potassium Bicarbonate (Potassium Effervescent Tablet) 40 meq PRN Q4HRS PRN PO SEE COMMENTS Last administered on 02/21/20at 13:31; Start 02/20/20 at 08:30 Potassium Chloride/Water 100 ml @ 100 mls/hr PRN Q1HR PRN IV SEE COMMENTS; Start 02/20/20 at 08:30 Furosemide (Lasix) 40 mg 1X ONCE IVP Last administered on 02/20/20at 10:30; Start 02/20/20 at 10:00; Stop 02/20/20 at 10:01; Status DC Info (Anti-Coagulation Monitoring By Pharmacy) 1 each PRN DAILY PRN MC SEE COMMENTS Last administered on 02/21/20at 10:04; Start 02/20/20 at 11:30 Losartan Potassium (Cozaar) 50 mg DAILY PO Last administered on 02/25/20at 08:17; Start 02/21/20 at 09:00 Warfarin Sodium (Coumadin Per Pharmacy) 1 each PRN DAILY PRN MC SEE COMMENTS Last administered on 02/20/20at 15:45; Start 02/20/20 at 12:45; Stop 02/21/20 at 09:58; Status DC Metoprolol Tartrate (Lopressor) 25 mg Q6HRS PO Last administered on 02/21/20at 06:14; Start 02/20/20 at 12:45; Stop 02/21/20 at 13:31; Status DC Amiodarone HCl (Cordarone) 400 mg BID PO Last administered on 02/21/20at 08:33; Start 02/20/20 at 13:00; Stop 02/21/20 at 12:56; Status DC Enoxaparin Sodium (Lovenox 100mg Syringe) 100 mg Q12HR SQ Last administered on 02/25/20at 08:19; Start 02/20/20 at 21:00 Warfarin Sodium (Coumadin) 5 mg 1X WARF ONCE PO ; Start 02/20/20 at 16:00; Stop 02/20/20 at 16:01; Status DC Furosemide (Lasix) 40 mg DAILY IVP Last administered on 02/25/20at 08:18; Start 02/21/20 at 09:00 Metoprolol Tartrate (Lopressor) 25 mg 1X ONCE PO Last administered on 02/21/20at 12:23; Start 02/21/20 at 11:45; Stop 02/21/20 at 11:46; Status DC Amiodarone HCl (Cordarone) 200 mg DAILY PO Last administered on 02/25/20at 08:18; Start 02/22/20 at 14:00 Amiodarone HCl 450 mg/Dextrose 259 ml @ 0 mls/hr CONT PRN IV SEE I/O RECORD Last administered on 02/21/20at 21:21; Start 02/21/20 at 13:00; Stop 02/21/20 at 21:21; Status DC Furosemide (Lasix) 40 mg 1X ONCE IVP Last administered on 02/21/20at 15:30; Start 02/21/20 at 14:00; Stop 02/21/20 at 14:01; Status DC Metoprolol Succinate (Toprol Xl) 50 mg BID PO Last administered on 02/25/20at 08:17; Start 02/21/20 at 21:00 Iodixanol (Visipaque 320) 100 ml STK-MED ONCE .ROUTE ; Start 02/22/20 at 11:55; Stop 02/22/20 at 11:55; Status DC Lidocaine HCl (Xylocaine-Mpf 1% 2ml Vial) 2 ml STK-MED ONCE .ROUTE ; Start 02/22/20 at 11:55; Stop 02/22/20 at 11:55; Status DC Heparin Sodium/ Sodium Chloride 500 ml @ As Directed STK-MED ONCE .ROUTE ; Start 02/22/20 at 11:55; Stop 02/22/20 at 11:56; Status DC Fentanyl Citrate (Fentanyl 2ml Vial) 100 mcg STK-MED ONCE .ROUTE ; Start 02/22/20 at 12:07; Stop 02/22/20 at 12:07; Status DC Midazolam HCl (Versed) 5 mg STK-MED ONCE .ROUTE ; Start 02/22/20 at 12:07; Stop 02/22/20 at 12:07; Status DC Heparin Sodium (Porcine) (Heparin Sodium) 10,000 unit STK-MED ONCE .ROUTE ; Start 02/22/20 at 12:07; Stop 02/22/20 at 12:07; Status DC Verapamil HCl (Verapamil) 5 mg STK-MED ONCE .ROUTE ; Start 02/22/20 at 12:07; Stop 02/22/20 at 12:07; Status DC Nitroglycerin (Nitroglycerin) 200 mcg STK-MED ONCE .ROUTE ; Start 02/22/20 at 12:07; Stop 02/22/20 at 12:07; Status DC Nitroglycerin (Nitroglycerin) 200 mcg 1X ONCE IART Last administered on 02/22/20at 13:54; Start 02/22/20 at 13:30; Stop 02/22/20 at 13:31; Status DC Verapamil HCl (Verapamil) 2.5 mg 1X ONCE IART Last administered on 02/22/20at 13:55; Start 02/22/20 at 13:30; Stop 02/22/20 at 13:31; Status DC Heparin Sodium (Porcine) (Heparin Sodium) 2,500 unit 1X ONCE IART Last administered on 02/22/20at 13:53; Start 02/22/20 at 13:30; Stop 02/22/20 at 13:31 ; Status DC Heparin Sodium/ Sodium Chloride (HEPARIN for ARTERIAL LINE FLUSH) 1,000 unit 1X ONCE IART Last administered on 02/22/20at 13:52; Start 02/22/20 at 13:30; Stop 02/22/20 at 13:31; Status DC Midazolam HCl (Versed) 5 mg 1X ONCE IV Last administered on 02/22/20at 13:54; Start 02/22/20 at 13:30; Stop 02/22/20 at 13:31; Status DC Fentanyl Citrate (Fentanyl 2ml Vial) 100 mcg 1X ONCE IV Last administered on 02/22/20at 13:54; Start 02/22/20 at 13:30; Stop 02/22/20 at 13:31; Status DC Iodixanol (Visipaque 320) 100 ml 1X ONCE IART Last administered on 02/22/20at 13:53; Start 02/22/20 at 13:30; Stop 02/22/20 at 13:31; Status DC Lidocaine HCl (Xylocaine-Mpf 1% 2ml Vial) 2 ml 1X ONCE INJ Last administered on 02/22/20at 13:53; Start 02/22/20 at 13:30; Stop 02/22/20 at 13:31; Status DC Info (CONTRAST GIVEN -- Rx MONITORING) 1 each PRN DAILY PRN MC SEE COMMENTS; Start 02/22/20 at 13:30; Stop 02/24/20 at 13:29; Status DC Clopidogrel Bisulfate (Plavix) 600 mg 1X ONCE PO Last administered on 02/22/20at 13:55; Start 02/22/20 at 13:45; Stop 02/22/20 at 13:46; Status DC Aspirin (Monse Aspirin) 325 mg 1X ONCE PO Last administered on 02/22/20at 13:55; Start 02/22/20 at 13:45; Stop 02/22/20 at 13:46; Status DC Aspirin (Ecotrin) 81 mg DAILYWBKFT PO Last administered on 02/25/20at 08:17; Start 02/23/20 at 08:00 Clopidogrel Bisulfate (Plavix) 75 mg DAILYWBKFT PO Last administered on at 08:18; Start 02/23/20 at 08:00 Atorvastatin Calcium (Lipitor) 40 mg QHS PO Last administered on 02/24/20at 21:01; Start 02/22/20 at 21:00 Acetaminophen (Tylenol) 650 mg PRN Q6HRS PRN PO MILD PAIN / TEMP > 100.3'F; Start 02/22/20 at 14:15 Nitroglycerin (Nitrostat) 0.4 mg PRN Q5MIN PRN SL CHEST PAIN; Start 02/22/20 at 14:15 Amiodarone HCl (Cordarone) 200 mg 1X ONCE PO Last administered on 02/22/20at 18:33; Start 02/22/20 at 18:15; Stop 02/22/20 at 18:16; Status DC Digoxin (Lanoxin) 250 mcg 1X ONCE IV Last administered on 02/23/20at 15:07; Start 02/23/20 at 15:00; Stop 02/23/20 at 15:01; Status DC Digoxin (Lanoxin) 250 mcg 1X ONCE IV Last administered on 02/23/20at 18:21; Start 02/23/20 at 18:15; Stop 02/23/20 at 18:16; Status DC Potassium Chloride (Klor-Con) 40 meq 1X ONCE PO Last administered on 02/24/20at 17:28; Start 02/24/20 at 16:45; Stop 02/24/20 at 16:46; Status DC Potassium Chloride (Klor-Con) 20 meq DAILYWBKFT PO Last administered on 02/25/20at 08:16; Start 02/25/20 at 08:00 Digoxin (Lanoxin) 250 mcg 1X ONCE IV Last administered on 02/24/20at 18:37; Start 02/24/20 at 18:30; Stop 02/24/20 at 18:31; Status DC Active Scripts Active Reported Multi Vitamin Daily (Multivitamin) 1 Each Tablet 1 Tab PO DAILY 30 Days Cymbalta (Duloxetine Hcl) 60 Mg Capsule.dr 60 Mg PO HS Eliquis (Apixaban) 5 Mg Tablet 5 Mg PO DAILY Losartan-Hctz 100-12.5 Mg Tab (Losartan/Hydrochlorothiazide) 1 Each Tablet 1 Each PO DAILY Ativan (Lorazepam) 1 Mg Tablet 1 Mg PO DAILY Oxybutynin Chloride 5 Mg Tablet 15 Mg PO DAILY Multaq (Dronedarone Hcl) 400 Mg Tablet 400 Mg PO BID Metoprolol Tartrate 25 Mg Tablet 25 Mg PO BID Celebrex (Celecoxib) 200 Mg Capsule 200 Mg PO DAILY 30 Days Protonix (Pantoprazole Sodium) 20 Mg Tablet.dr 40 Mg PO BID Vitals/I & O Vital Sign - Last 24 Hours 02/24/20 02/24/20 02/24/20 02/24/20 15:00 18:37 19:30 19:45 Temp 98.0 98.0 98.0 98.0 Pulse 88 125 106 Resp 16 16 B/P (MAP) 107/59 (75) 119/66 122/85 (97) Pulse Ox 95 100 O2 Delivery Nasal Cannula Room Air Nasal Cannula O2 Flow Rate 2.0 2.0 02/24/20 02/24/20 02/25/20 02/25/20 21:01 23:58 02:39 07:00 Temp 98.4 98.2 98.0 98.4 98.2 98.0 Pulse 106 96 93 69 Resp 16 16 16 B/P (MAP) 122/85 126/74 (91) 155/76 (102) 178/77 (110) Pulse Ox 96 95 94 O2 Delivery Nasal Cannula Nasal Cannula Nasal Cannula O2 Flow Rate 2.0 2.0 2.0 02/25/20 02/25/20 02/25/20 02/25/20 08:17 08:17 08:18 10:29 Temp 98.1 98.1 Pulse 85 98 85 103 Resp 16 B/P (MAP) 127/79 (95) Pulse Ox 94 O2 Delivery Nasal Cannula O2 Flow Rate 2.0 Intake and Output 02/24/20 02/24/20 02/25/20 15:00 23:00 07:00 Intake Total 400 ml 400 ml Output Total 800 ml 525 ml Balance -400 ml -125 ml Justicifation of Admission Dx: Justifications for Admission: Justification of Admission Dx: Yes CHF: Cardiac Arrhythmias ELINA POON MD Feb 25, 2020 11:27
--- NOTE | 2020-02-25 12:19 | PDOC3 ---
Discharge Summary Date of Admission: Feb 19, 2020 Date of Discharge: Feb 25, 2020 Follow-Up: 1-2 days Admitting Diagnosis comment: TRANSFER DX Acute respiratory failure due to likely acute CHF COVID pneumonia and acute lung injury treated for about 5-6 weeks in the month of November at and then developed stroke while at the rehabfacility and has been tested negative 5 times since then. acute on chronic diastolic CHF AFIB RVR, UNCONTROLLED // AFIB RVR evening 02/21 now transfer to [facility] Cardi ology 02/24 for ablasion GLADIS HTN Dyslipidemia Diabetes Obesity class II Recent COVID infection pneumonia in November Recent embolic stroke with residual left-sided hemiparesis Chronic LE lymphedema HYPOKALEMIA PLAN ADMIT Appreciate cardiology and pulmonology recommendations TTE when COVID is negative Continue losartan at a low dose. Continue metoprolol. DC Cardizem and HCTZ. Continue with IV Lasix diuresis Continue IV antibiotics appreciate ID recommendations Follow-up blood cultures Lovenox and warfarin for DVT prophylaxis Protonix GI prophylaxis ADA diet Full code Discussed with RN and SW Disposition inpatient Surrogate decision maker is self abg today, cxr 02/24 d/c planning 34 min 27 min pt exam, chart review, > 50% of time spent with exam, chart review, pt care coordination plan HOME HEALTH when stable is total care, provides care with History of Present Illness History of Present Illness 79-year-old female with past medical history of CHF, GLADIS, CVA, COVID pneumonia who presents to the ED with complaints of shortness of breath. She was recently treated for COVID and she developed a stroke during her treatment at . She eventually went to rehab afterwards. No acute events overnight. Patient is currently being evaluated by pulmonology and cardiology. Patient's chart, labs, images were reviewed and discussed with RN Vitals Vitals Vital Signs Date Time Temp Pulse Resp B/P (MAP) Pulse Ox O2 Delivery O2 Flow Rate FiO2 02/25/20 10:29 98.1 103 16 127/79 (95) 94 Nasal Cannula 2.0 98.1 Physical Exam General: Alert, Cooperative, No acute distress Heart: Other (Irregularly irregular) Lungs: Clear Abdomen: Normal bowel sounds Extremities: No clubbing, No cyanosis, No edema, Other (2+ bilateral LE pitting edema) Skin: No breakdown Labs LABS INDICATION: Reason: CHF / Spl. Instructions: / History: COMPARISON: February 19, 2020 FINDINGS: Single view of chest obtained. Cardiac silhouette is again prominent in size. Interstitial and alveolar opacities are again seen throughout the bilateral lungs and similar to prior. IMPRESSION: * Repeat demonstration of interstitial and alveolar opacities throughout the bilateral lungs which can be seen with edema or infiltrate. Electronically signed by: Tono Landis MD (02/22/2020 8:42 AM) [id number] FINAL DIAGNOSIS Problems Medical Problems: (1) Atrial fibrillation with rapid ventricular response Status: Acute (2) COPD exacerbation Status: Acute (3) Dyspnea Status: Acute (4) Respiratory failure Status: Acute Brief Hospital Course Ms. Leavitt is a 79 old [sex] who presented with [ ] CONDITION AT DISCHARGE: Comment (GUARDED ) Discharge Medications Current Medications Sodium Chloride 1,000 ml @ 1,000 mls/hr 1X ONCE IV Last administered on 02/19/20at 14:05; Start 02/19/20 at 13:30; Stop 02/19/20 at 14:29; Status DC Diltiazem HCl (Cardizem Iv Push) 20 mg 1X ONCE IVP Last administered on 02/19/20at 14:04; Start 02/19/20 at 14:00; Stop 02/19/20 at 14:01; Status DC Methylprednisolone Sodium Succinate (SOLU-Medrol 125MG VIAL) 125 mg 1X ONCE IV Last administered on 02/19/20at 14:04; Start 02/19/20 at 13:45; Stop 02/19/20 at 13:46; Status DC Albuterol/ Ipratropium (Duoneb) 3 ml 1X ONCE NEB Last administered on 02/19/20at 14:05; Start 02/19/20 at 13:45; Stop 02/19/20 at 13:46; Status DC Diltiazem HCl 125 mg/Sodium Chloride 125 ml @ 5 mls/hr 1X ONCE IV Last administered on 02/19/20at 15:15; Start 02/19/20 at 15:15; Stop 02/20/20 at 16:14; Status DC Levofloxacin/ Dextrose 150 ml @ 100 mls/hr 1X ONCE IV Last administered on 02/19/20at 17:09; Start 02/19/20 at 16:45; Stop 02/19/20 at 18:14; Status DC Metoprolol Tartrate (Lopressor Vial) 5 mg 1X ONCE IVP Last administered on 02/19/20at 18:30; Start 02/19/20 at 18:15; Stop 02/19/20 at 18:16; Status DC Enoxaparin Sodium (Lovenox Per Pharmacy Treatment Dosing) 1 each PRN DAILY PRN MC SEE COMMENTS; Start 02/19/20 at 22:30 Dronedarone (Multaq) 400 mg 1X ONCE PO Last administered on 02/19/20at 23:18; Start 02/19/20 at 22:45; Stop 02/19/20 at 22:46; Status DC Pantoprazole Sodium (Protonix) 40 mg 1X ONCE PO Last administered on 02/19/20at 23:17; Start 02/19/20 at 22:45; Stop 02/19/20 at 22:46; Status DC Metoprolol Tartrate (Lopressor) 25 mg 1X ONCE PO Last administered on 02/19/20at 23:17; Start 02/19/20 at 22:45; Stop 02/19/20 at 22:46; Status DC Enoxaparin Sodium (Lovenox 100mg Syringe) 90 mg Q12HR SQ Last administered on 02/20/20at 08:00; Start 02/19/20 at 22:45; Stop 02/20/20 at 14:17; Status DC Diltiazem HCl 125 mg/Sodium Chloride 125 ml @ 10 mls/hr CONT PRN IV SEE I/O RECORD Last administered on 02/20/20at 01:05; Start 02/20/20 at 00:30; Stop 02/20/20 at 12:44; Status DC Dronedarone (Multaq) 400 mg BID PO Last administered on 02/20/20at 08:02; Start 02/20/20 at 09:00; Stop 02/20/20 at 12:44; Status DC Lorazepam (Ativan) 1 mg DAILY PO Last administered on 02/25/20at 08:17; Start 02/20/20 at 09:00 Metoprolol Tartrate (Lopressor) 25 mg BID PO Last administered on 02/21/20at 08:33; Start 02/20/20 at 09:00; Stop 02/21/20 at 09:59; Status DC Oxybutynin Chloride (Ditropan) 15 mg DAILY PO Last administered on 02/25/20at 08:18; Start 02/20/20 at 09:00 Celecoxib (CeleBREX) 200 mg DAILY PO Last administered on 02/25/20at 08:17; Start 02/20/20 at 09:00 Duloxetine HCl (Cymbalta) 60 mg HS PO Last administered on 02/24/20at 21:00; Start 02/20/20 at 21:00 Non-Formulary Medication (Losartan/ Hydrochlorothiazide (Losartan-Hctz 100-12.5 Mg Tab)) 1 each DAILY PO ; Start 02/20/20 at 09:00; Status UNV Multivitamins (Thera M Plus) 1 tab DAILY PO Last administered on 02/25/20at 08:16; Start 02/20/20 at 09:00 Pantoprazole Sodium (Protonix) 40 mg BIDAC PO Last administered on 02/25/20at 08:18; Start 02/20/20 at 07:30 Losartan Potassium (Cozaar) 100 mg DAILY PO Last administered on 02/20/20at 08:01; Start 02/20/20 at 09:00; Stop 02/20/20 at 12:44; Status DC Hydrochlorothiazide (Microzide) 12.5 mg DAILY PO Last administered on 02/20/20at 08:01; Start 02/20/20 at 09:00; Stop 02/20/20 at 12:45; Status DC Potassium Chloride (Klor-Con) 40 meq 1X PRN PRN PO SEE COMMENTS Last administered on 02/21/20at 15:37; Start 02/20/20 at 08:30 Potassium Chloride/Water 100 ml @ 100 mls/hr PRN Q1HR PRN IV SEE COMMENTS; Start 02/20/20 at 08:30 Magnesium Sulfate 50 ml @ 25 mls/hr PRN DAILY PRN IV SEE COMMENTS; Start 02/20/20 at 08:30 Potassium Phos/ Sodium Phos (Phos-Nak) 1 pkt PRN BID PRN PO SEE COMMENTS; Start 02/20/20 at 09:00 Potassium Bicarbonate (Potassium Effervescent Tablet) 40 meq PRN Q4HRS PRN PO SEE COMMENTS Last administered on 02/21/20at 13:31; Start 02/20/20 at 08:30 Potassium Chloride/Water 100 ml @ 100 mls/hr PRN Q1HR PRN IV SEE COMMENTS; S tart 02/20/20 at 08:30 Furosemide (Lasix) 40 mg 1X ONCE IVP Last administered on 02/20/20at 10:30; Start 02/20/20 at 10:00; Stop 02/20/20 at 10:01; Status DC Info (Anti-Coagulation Monitoring By Pharmacy) 1 each PRN DAILY PRN MC SEE COMMENTS Last administered on 02/21/20at 10:04; Start 02/20/20 at 11:30 Losartan Potassium (Cozaar) 50 mg DAILY PO Last administered on 02/25/20at 08: 17; Start 02/21/20 at 09:00 Warfarin Sodium (Coumadin Per Pharmacy) 1 each PRN DAILY PRN MC SEE COMMENTS Last administered on 02/20/20at 15:45; Start 02/20/20 at 12:45; Stop 02/21/20 at 09:58; Status DC Metoprolol Tartrate (Lopressor) 25 mg Q6HRS PO Last administered on 02/21/20at 06:14; Start 02/20/20 at 12:45; Stop 02/21/20 at 13:31; Status DC Amiodarone HCl (Cordarone) 400 mg BID PO Last administered on 02/21/20at 08:33; Start 02/20/20 at 13:00; Stop 02/21/20 at 12:56; Status DC Enoxaparin Sodium (Lovenox 100mg Syringe) 100 mg Q12HR SQ Last administered on 02/25/20at 08:19; Start 02/20/20 at 21:00 Warfarin Sodium (Coumadin) 5 mg 1X WARF ONCE PO ; Start 02/20/20 at 16:00; Stop 02/20/20 at 16:01; Status DC Furosemide (Lasix) 40 mg DAILY IVP Last administered on 02/25/20at 08:18; Start 02/21/20 at 09:00 Metoprolol Tartrate (Lopressor) 25 mg 1X ONCE PO Last administered on 02/20at 12:23; Start 02/21/20 at 11:45; Stop 02/21/20 at 11:46; Status DC Amiodarone HCl (Cordarone) 200 mg DAILY PO Last administered on 02/25/20at 08:18; Start 02/22/20 at 14:00 Amiodarone HCl 450 mg/Dextrose 259 ml @ 0 mls/hr CONT PRN IV SEE I/O RECORD Last administered on 02/21/20at 21:21; Start 02/21/20 at 13:00; Stop 02/21/20 at 21:21; Status DC Furosemide (Lasix) 40 mg 1X ONCE IVP Last administered on 02/21/20at 15:30; Start 02/21/20 at 14:00; Stop 02/21/20 at 14:01; Status DC Metoprolol Succinate (Toprol Xl) 50 mg BID PO Last administered on 02/25/20at 08:17; Start 02/21/20 at 21:00 Iodixanol (Visipaque 320) 100 ml STK-MED ONCE .ROUTE ; Start 02/22/20 at 11:55; Stop 02/22/20 at 11:55; Status DC Lidocaine HCl (Xylocaine-Mpf 1% 2ml Vial) 2 ml STK-MED ONCE .ROUTE ; Start 02/22/20 at 11:55; Stop 02/22/20 at 11:55; Status DC Heparin Sodium/ Sodium Chloride 500 ml @ As Directed STK-MED ONCE .ROUTE ; Start 02/22/20 at 11:55; Stop 02/22/20 at 11:56; Status DC Fentanyl Citrate (Fentanyl 2ml Vial) 100 mcg STK-MED ONCE .ROUTE ; Start 02/22/20 at 12:07; Stop 02/22/20 at 12:07; Status DC Midazolam HCl (Versed) 5 mg STK-MED ONCE .ROUTE ; Start 02/22/20 at 12:07; Stop 02/22/20 at 12:07; Status DC Heparin Sodium (Porcine) (Heparin Sodium) 10,000 unit STK-MED ONCE .ROUTE ; Start 02/22/20 at 12:07; Stop 02/22/20 at 12:07; Status DC Verapamil HCl (Verapamil) 5 mg STK-MED ONCE .ROUTE ; Start 02/22/20 at 12:07; Stop 02/22/20 at 12:07; Status DC Nitroglycerin (Nitroglycerin) 200 mcg STK-MED ONCE .ROUTE ; Start 02/22/20 at 12:07; Stop 02/22/20 at 12:07; Status DC Nitroglycerin (Nitroglycerin) 200 mcg 1X ONCE IART Last administered on 02/21 13:54; Start 02/22/20 at 13:30; Stop 02/22/20 at 13:31; Status DC Verapamil HCl (Verapamil) 2.5 mg 1X ONCE IART Last administered on 02/22/20at 13:55; Start 02/22/20 at 13:30; Stop 02/22/20 at 13:31; Status DC Heparin Sodium (Porcine) (Heparin Sodium) 2,500 unit 1X ONCE IART Last administered on 02/22/20 13:53; Start 02/22/20 at 13:30; Stop 02/22/20 at 13:31; Status DC Heparin Sodium/ Sodium Chloride (HEPARIN for ARTERIAL LINE FLUSH) 1,000 unit 1X ONCE IART Last administered on 02/22/20 13:52; Start 02/22/20 at 13:30; Stop 02/22/20 at 13:31; Status DC Midazolam HCl (Versed) 5 mg 1X ONCE IV Last administered on 02/22/20 13:54; Start 02/22/20 at 13:30; Stop 02/22/20 at 13:31; Status DC Fentanyl Citrate (Fentanyl 2ml Vial) 100 mcg 1X ONCE IV Last administered on 02/22/20 13:54; Start 02/22/20 at 13:30; Stop 02/22/20 at 13:31; Status DC Iodixanol (Visipaque 320) 100 ml 1X ONCE IART Last administered on 02/22/20 13:53; Start 02/22/20 at 13:30; Stop 02/22/20 at 13:31; Status DC Lidocaine HCl (Xylocaine-Mpf 1% 2ml Vial) 2 ml 1X ONCE INJ Last administered on 02/22/20 13:53; Start 02/22/20 at 13:30; Stop 02/22/20 at 13:31; Status DC Info (CONTRAST GIVEN -- Rx MONITORING) 1 each PRN DAILY PRN MC SEE COMMENTS; Start 02/22/20 at 13:30; Stop 02/24/20 at 13:29; Status DC Clopidogrel Bisulfate (Plavix) 600 mg 1X ONCE PO Last administered on 02/22/20at 13:55; Start 02/22/20 at 13:45; Stop 02/22/20 at 13:46; Status DC Aspirin (Monse Aspirin) 325 mg 1X ONCE PO Last administered on 02/22/20at 13:55; Start 02/22/20 at 13:45; Stop 02/22/20 at 13:46; Status DC Aspirin (Ecotrin) 81 mg DAILYWBKFT PO Last administered on 02/25/20at 08:17; Start 02/23/20 at 08:00 Clopidogrel Bisulfate (Plavix) 75 mg DAILYWBKFT PO Last administered on 02/25/20at 08:18; Start 02/23/20 at 08:00 Atorvastatin Calcium (Lipitor) 40 mg QHS PO Last administered on 02/24/20at 21:01; Start 02/22/20 at 21:00 Acetaminophen (Tylenol) 650 mg PRN Q6HRS PRN PO MILD PAIN / TEMP > 100.3'F; Start 02/22/20 at 14:15 Nitroglycerin (Nitrostat) 0.4 mg PRN Q5MIN PRN SL CHEST PAIN; Start 02/22/20 at 14:15 Amiodarone HCl (Cordarone) 200 mg 1X ONCE PO Last administered on 02/22/20at 18:33; Start 02/22/20 at 18:15; Stop 02/22/20 at 18:16; Status DC Digoxin (Lanoxin) 250 mcg 1X ONCE IV Last administered on 02/23/20at 15:07; Start 02/23/20 at 15:00; Stop 02/23/20 at 15:01; Status DC Digoxin (Lanoxin) 250 mcg 1X ONCE IV Last administered on 02/23/20at 18:21; Start 02/23/20 at 18:15; Stop 02/23/20 at 18:16; Status DC Potassium Chloride (Klor-Con) 40 meq 1X ONCE PO Last administered on 02/24/20at 17:28; Start 02/24/20 at 16:45; Stop 02/24/20 at 16:46; Status DC Potassium Chloride (Klor-Con) 20 meq DAILYWBKFT PO Last administered on 02/25/20at 08:16; Start 02/25/20 at 08:00 Digoxin (Lanoxin) 250 mcg 1X ONCE IV Last administered on 02/24/20at 18:37; Start 02/24/20 at 18:30; Stop 02/24/20 at 18:31; Status DC Active Scripts Active Reported Multi Vitamin Daily (Multivitamin) 1 Each Tablet 1 Tab PO DAILY 30 Days Cymbalta (Duloxetine Hcl) 60 Mg Capsule.dr 60 Mg PO HS Eliquis (Apixaban) 5 Mg Tablet 5 Mg PO DAILY Losartan-Hctz 100-12.5 Mg Tab (Losartan/Hydrochlorothiazide) 1 Each Tablet 1 Each PO DAILY Ativan (Lorazepam) 1 Mg Tablet 1 Mg PO DAILY Oxybutynin Chloride 5 Mg Tablet 15 Mg PO DAILY Multaq (Dronedarone Hcl) 400 Mg Tablet 400 Mg PO BID Metoprolol Tartrate 25 Mg Tablet 25 Mg PO BID Celebrex (Celecoxib) 200 Mg Capsule 200 Mg PO DAILY 30 Days Protonix (Pantoprazole Sodium) 20 Mg Tablet.dr 40 Mg PO BID Vital Signs Vital Signs Date Time Temp Pulse Resp B/P (MAP) Pulse Ox O2 Delivery O2 Flow Rate FiO2 02/25/20 10:29 98.1 103 16 127/79 (95) 94 Nasal Cannula 2.0 98.1 Labs Laboratory Tests Test 02/23/20 17:30 02/24/20 04:30 02/25/20 05:17 Prothrombin Time 14.0 SEC (11.7-14.0) 14.3 SEC (11.7-14.0) Prothromb Time International Ratio 1.1 (0.8-1.1) 1.2 (0.8-1.1) White Blood Count 10.0 x10^3/uL (4.0-11.0) Red Blood Count 3.63 x10^6/uL (3.50-5.40) Hemoglobin 10.9 g/dL (12.0-15.5) Hematocrit 32.9 % (36.0-47.0) Mean Corpuscular Volume 91 fL (79-100) Mean Corpuscular Hemoglobin 30 pg (25-35) Mean Corpuscular Hemoglobin Concent 33 g/dL (31-37) Red Cell Distribution Width 17.0 % (11.5-14.5) Platelet Count 277 x10^3/uL (140-400) Neutrophils (%) (Auto) 68 % (31-73) Lymphocytes (%) (Auto) 20 % (24-48) Monocytes (%) (Auto) 7 % (0-9) Eosinophils (%) (Auto) 5 % (0-3) Basophils (%) (Auto) 1 % (0-3) Neutrophils # (Auto) 6.8 x10^3/uL (1.8-7.7) Lymphocytes # (Auto) 2.0 x10^3/uL (1.0-4.8) Monocytes # (Auto) 0.6 x10^3/uL (0.0-1.1) Eosinophils # (Auto) 0.5 x10^3/uL (0.0-0.7) Basophils # (Auto) 0.1 x10^3/uL (0.0-0.2) Sodium Level 142 mmol/L (136-145) 142 mmol/L (136-145) Potassium Level 3.4 mmol/L (3.5-5.1) 4.3 mmol/L (3.5-5.1) Chloride Level 105 mmol/L (98-107) 104 mmol/L (98-107) Carbon Dioxide Level 31 mmol/L (21-32) 29 mmol/L (21-32) Anion Gap 6 (6-14) 9 (6-14) Blood Urea Nitrogen 15 mg/dL (7-20) 14 mg/dL (7-20) Creatinine 1.0 mg/dL (0.6-1.0) 0.8 mg/dL (0.6-1.0) Estimated GFR (Cockcroft-Gault) 53.3 69.0 BUN/Creatinine Ratio 15 (6-20) Glucose Level 111 mg/dL (70-99) 105 mg/dL (70-99) Calcium Level 7.8 mg/dL (8.5-10.1) 8.0 mg/dL (8.5-10.1) Total Bilirubin 0.4 mg/dL (0.2-1.0) Aspartate Amino Transf (AST/SGOT) 10 U/L (15-37) Alanine Aminotransferase (ALT/SGPT) 7 U/L (14-59) Alkaline Phosphatase 53 U/L (46-116) Total Protein 5.5 g/dL (6.4-8.2) Albumin 2.1 g/dL (3.4-5.0) Albumin/Globulin Ratio 0.6 (1.0-1.7) Laboratory Tests Test 02/25/20 05:17 Sodium Level 142 mmol/L (136-145) Potassium Level 4.3 mmol/L (3.5-5.1) Chloride Level 104 mmol/L (98-107) Carbon Dioxide Level 29 mmol/L (21-32) Anion Gap 9 (6-14) Blood Urea Nitrogen 14 mg/dL (7-20) Creatinine 0.8 mg/dL (0.6-1.0) Estimated GFR (Cockcroft-Gault) 69.0 Glucose Level 105 mg/dL (70-99) Calcium Level 8.0 mg/dL (8.5-10.1) Allergies Allergies Coded Allergies Type Severity Reaction Last Updated Verified azithromycin Allergy Intermediate 02/19/20 Yes Disposition/Orders: Other (TO [facility] C[facility] DIRECT ADMIT TODAY) Patient Instructions D/W [facility] Justicifation of Admission Dx: Justifications for Admission: Justification of Admission Dx: Yes CHF: Cardiac Arrhythmias ELINA POON MD Feb 25, 2020 12:19
[2020-02-25 12:30] LABS: BASE EXCESS COOX 5 mmol/L (-3-3); HCO3 COOX 29 mmol/L (21-28); METHEMOGLOBIN 0.2 % (0.0-1.9); OXYHEMOGLOBIN 93.2 %; PCO2 COOX 42 mmHg (35-46); PO2 COOX 71 mmHg (65-108); SAT O2 COOX 94 % (92-99)
[2020-02-25 14:38] VITALS: BP 121/66
--- NOTE | 2020-02-25 16:07 | NUR ---
SS following up with discharge planning. [facility] reported that they were at capacity today but would follow up with SS tomorrow if there was availability.
--- NOTE | 2020-02-25 16:33 | PDOC ---
JUNE LOPEZ DINING SERVER 02/25/20 1633: CARDIO Progress Notes Date and Time Date of Service 02/25/20 Time of Evaluation 1210 Subjective Subjective: No Chest Pain, No shortness of breath, No Palpitations Vitals Vitals Vital Signs Date Time Temp Pulse Resp B/P (MAP) Pulse Ox O2 Delivery O2 Flow Rate FiO2 02/25/20 14:38 97.9 108 16 121/66 (84) 95 Nasal Cannula 2.0 97.9 Weight Weight [ ] Input and Output Intake and Output Intake and Output 02/25/20 07:00 Intake Total 800 ml Output Total 1325 ml Balance -525 ml Intake Oral 800 ml Output Urine Total 1325 ml # Voids 2 Laboratory Labs Laboratory Tests Test 02/25/20 05:17 02/25/20 12:20 Sodium Level 142 mmol/L (136-145) Potassium Level 4.3 mmol/L (3.5-5.1) Chloride Level 104 mmol/L (98-107) Carbon Dioxide Level 29 mmol/L (21-32) Anion Gap 9 (6-14) Blood Urea Nitrogen 14 mg/dL (7-20) Creatinine 0.8 mg/dL (0.6-1.0) Estimated GFR (Cockcroft-Gault) 69.0 Glucose Level 105 mg/dL (70-99) Calcium Level 8.0 mg/dL (8.5-10.1) O2 Saturation 94 % (92-99) Arterial Blood pH 7.46 (7.35-7.45) Arterial Blood pCO2 at Patient Temp 42 mmHg (35-46) Arterial Blood pO2 at Patient Temp 71 mmHg (65-108) Arterial Blood HCO3 29 mmol/L (21-28) Arterial Blood Base Excess 5 mmol/L (-3-3) Oxyhemoglobin 93.2 % Methemoglobin 0.2 % (0.0-1.9) Carbon Monoxide, Quantitative 0.8 % (0.0-1.9) FiO2 24% Physical Exam HEENT: Neck Supple W Full Motion Chest: Symmetric LUNGS: Other (diminished bases) Heart: RRR (AFIB- rate controlled. Was SR this am) Abdomen: Soft N/T, Other (obese ) Extremities: Other (trace bilateral LE edema ) Neurology: alert, oriented, follow commands Assessment Assessment 1. Acute on chronic systolic CHF: Improved. Ejection fraction of 20 to 25% on catheterization. Appears compensated 2. CAD; s/p PCI/BMS to LAD. 3. PAFIB; was SR this am, but converted back to AFIB late morning. rate overall controlled. Daughter requesting patient be transferred to now for ablation therapy. Request has been submitted by SS 4. GLADIS: CPAP intolerant; uses O2 at home. 5. HTN: controlled 6. HLP: past statin intolerance, lipids are on goal otherwise 7. DM2: per pcp 8. Obesity with debility r/t CVA 9. Hx of recent embolic stroke with left side hemiparesis: Recommendations HF optimization with Metoprolol, losartan, and Lasix therapy. Convert Lasix to oral Amiodarone for rhyhtm maintenance Lovenox for stroke prophylaxis Secondary prevention. Triple therapy with ASA/Plavis/Lovenox x1 month and then Plavix and Lovenox thereafter. Re-evaluate LVEF on an outpatient basis in 3 month. Transfer to [facility] pending as per daughters request. Justicifation of Admission Dx: Justifications for Admission: Justification of Admission Dx: Yes CHF: Cardiac Arrhythmias FINA CHAPIN MD 02/25/20 1707: CARDIO Progress Notes Assessment Assessment Patient seen and examined. Agree with AFFILIATE MANAGER's assessment and plan. Acute on chronic systolic heart failure better compensated. CAD s/p PCI/BMS to LAD, clinically stable and chest pain-free. PAF, converted to sinus rhythm this morning and presently back in atrial fibrillation with relatively well-controlled heart rate. Continue amiodarone for antiarrhythmic therapy, Lovenox for stroke prophylaxis. Okay for transfer to per family's wishes for possible ablation therapy. JUNE LOPEZ APRN Feb 25, 2020 16:33 FINA CHAPIN MD Feb 25, 2020 17:07
--- NOTE | 2020-02-25 16:36 | NUR ---
SS following up with discharge planning. SS received phone contact from Aydee at transfer center, , stating that bed is available for pt. Bed# [id number]. Accepting physician, Dr. Christo Noel. Report# [phone]. Pt and pt's daughter notified. Pt will discharge today and go to between 1800 and 1830 via [facility] transport. Packet, transfer form, and ambulance form on the chart. Pt's RN notified.
--- NOTE | 2020-02-25 16:51 | RAD ---
EXAM: CHEST 1 VIEW History: Pneumonia COMPARISON: 02/22/2020 TECHNIQUE: Single portable radiograph of the chest Findings/impression The cardiac silhouette is unremarkable. Prominent bilateral interstitial lung markings likely chronic interstitial changes. Faint spiculated opacity measuring 1.9 cm left upper lobe of the lung. Recommend CT chest for further evaluation. Patchy bilateral interstitial lung markings likely atelectasis or infiltrates. Electronically signed by: Josse Zamora MD (02/25/2020 4:49 PM) [id number]
--- NOTE | 2020-02-25 17:26 | NUR ---
Discharge: JOSHUA arrived to unit shortly after 1600. Patient assisted off of unit via gurney accompanied by transport at 1715. All belongings with patient. IV patent, clean dry and intact. Report called to ADEN tay at [phone]. Transfer team also notified. patient notified her family
[2020-02-26] MEDS ORDERED: FUROSEMIDE 40 MG TABLET. PO SCH (09:00)
== END 2020-02-25 17:15 | disposition short-term general hospital (02) | DRG 248 ==
LOC: ER 12:52 → 6 SOUTH 18:07 → 2 SOUTH 02-20 16:36
PROVIDERS: ADMIT Internal Medicine; ATTEND Internal Medicine
PROC: 02703DZ Dilation of Coronary Artery, One Artery with Intraluminal Device, Percutaneous Approach (ICD-10-PCS; principal; 2020-02-22)
PROC: 4A023N7 Measurement of Cardiac Sampling and Pressure, Left Heart, Percutaneous Approach (ICD-10-PCS; 2020-02-22)
PROC: B2111ZZ Fluoroscopy of Multiple Coronary Arteries using Low Osmolar Contrast (ICD-10-PCS; 2020-02-22)
DX: I11.0 Hypertensive heart disease with heart failure (principal); J96.01 Acute respiratory failure with hypoxia; I69.354 Hemiplegia and hemiparesis following cerebral infarction affecting left non-dominant side; J44.1 Chronic obstructive pulmonary disease with (acute) exacerbation; I48.0 Paroxysmal atrial fibrillation; I50.43 Acute on chronic combined systolic (congestive) and diastolic (congestive) heart failure; E11.9 Type 2 diabetes mellitus without complications; E66.9 Obesity, unspecified; E78.5 Hyperlipidemia, unspecified; E87.6 Hypokalemia; F41.9 Anxiety disorder, unspecified; G47.33 Obstructive sleep apnea (adult) (pediatric); I25.10 Atherosclerotic heart disease of native coronary artery without angina pectoris; I25.5 Ischemic cardiomyopathy; I89.0 Lymphedema, not elsewhere classified; K59.00 Constipation, unspecified; Z51.5 Encounter for palliative care; Z82.49 Family history of ischemic heart disease and other diseases of the circulatory system; Z85.3 Personal history of malignant neoplasm of breast; Z86.19 Personal history of other infectious and parasitic diseases; Z87.01 Personal history of pneumonia (recurrent); Z87.11 Personal history of peptic ulcer disease; Z87.891 Personal history of nicotine dependence; Z90.710 Acquired absence of both cervix and uterus; Z96.651 Presence of right artificial knee joint; Z98.61 Coronary angioplasty status; Z99.3 Dependence on wheelchair; F32.9 Major depressive disorder, single episode, unspecified; K57.90 Diverticulosis of intestine, part unspecified, without perforation or abscess without bleeding; M19.90 Unspecified osteoarthritis, unspecified site; Z20.828 Contact with and (suspected) exposure to other viral communicable diseases
CPT/HCPCS: 36415; 36600; 71045; 80048; 80053; 80061; 81001; 82805; 82962; 83735; 83880; 84100; 84443; 84484; 85025; 85610; 85730; 92928; 93005; 93308; 93320; 93325; 93458; 93971; 94640; 96361; 96365; 96366; 96375; 99152; 99153; 99285; C1725; C1769; C1874; C1887; C1892; J0282; J1160; J1644; J1650; J1940; J1956; J2250; J2930; J3010; J3490; J7030; J7060; Q9967; 97112-GP; 97530-GO; 97530-GP; 97535-GO; G0378; U0003-CS